=== PATIENT | female | born 2000 | race Caucasian/White ===

== ENCOUNTER 2025-06-29 11:09 | Inpatient (IN) | payer MEDICARE, SELFPAY ==
[2025-06-29] VITALS (8 sets, daily range): BP systolic 103–130; BP diastolic 58–91; PULSE 86–104; RESP 16–24; TEMP 36.7–37.3; O2SAT 95–100; BMI 46.8
--- NOTE | 2025-06-29 12:07 | PD.EDSEIZ ---
ED Seizures RME/HPI General Chief Complaint: Seizure Stated Complaint: seizure Time Seen by Provider: 06/29/25 11:20 Arrival date/time: 06/29/25 11:11 Limitations: no limitations RME / HPI RME / HPI Narrative: 25 year old female with history of seizures, schizophrenia, pulmonary embolism on Eliquis presents to the ED BIBA from home for evaluation of possible seizure. In the ED, patient states she had a seizure 3 days ago with + head injury in the shower. She additionally reports just being discharged from a mental health facility several days ago and is feeling suicidal today. No plan in place and denies taking any action or overdosing on medications. Patient states she is compliant with her seizure medications which include Keppra 1,500mg BID and Vimpat 150mg BID. States her neurologist is Dr. Harrell in [place] and last saw ~ 1 month ago. Related Data Home Medications ?Medication ?Instructions ?Recorded ?Confirmed apixaban 5 mg tablet (Eliquis) 5 mg PO Q12H 06/29/25 06/29/25 aripiprazole 10 mg tablet 10 mg PO DAILY 06/29/25 06/29/25 levetiracetam 750 mg tablet 750 mg PO Q12H 06/29/25 06/29/25 levothyroxine 25 mcg tablet 25 mcg PO DAILY 06/29/25 06/29/25 rimegepant 75 mg disintegrating 75 mg PO DAILY 06/29/25 06/29/25 tablet (Nurtec ODT) Allergies Allergy/AdvReac Type Severity Reaction Status Date / Time lithium Allergy Verified 06/29/25 12:13 Review of Systems Review of Systems Systems Reviewed: All systems reviewed, normal except as documented Past Medical History Past Medical History NEUROLOGIC: Positive Seizures and Epilepsy ENDOCRINE: Positive Hypothyroidism PSYCHO/SOCIAL: Positive Psychiatric Problems and Schizophrenia Surgical History SURGICAL: Negative Ear Surgery, Nephrectomy, Joint Replacement, Neurologic Surgery or Lumpectomy Social History SMOKING STATUS: Current some day smoker ED Exam General Limitations: Present no limitations General appearance: Present alert and in no apparent distress Head Head exam: Present normocephalic and other (There is an old appearing abrasion to the left forehead) Eye Eye exam: Present normal appearance, PERRL and EOMI ENT ENT exam: Present normal exam, normal oropharynx and mucous membranes moist Neck Neck exam: Present normal inspection, full ROM and trachea midline Chest Chest inspection: Present normal inspection and symmetric chest wall rise Respiratory Respiratory exam: Present normal lung sounds bilaterally Cardiovascular Cardiovascular exam: Present regular rate, normal rhythm and normal heart sounds Abdominal Exam Abdominal exam: Present soft and normal bowel sounds Extremities Exam Extremities exam: Present normal inspection and full ROM Back Exam Back exam: Present normal inspection and full ROM Neurological Exam Neurological exam: Present alert, oriented X3 and CN II-XII intact Psychiatric Psychiatric exam: Present normal affect and normal mood Skin Skin exam: Present warm, dry, intact and normal color Course Quality Measures none Orders Category Date Time Status 1799 Psychiatric Hold NOW Care 06/29/25 12:45 Ordered One-to-one observation NOW Care 06/29/25 12:00 Active Diet Regular Diet 06/30/[address] cervical spine wo con Stat Exams 06/29/25 15:[address] head/brain wo con Stat Exams 06/29/25 15:55 Completed Acetaminophen Stat Lab 06/29/25 13:10 Completed Alcohol, Blood Medical Stat Lab 06/29/25 13:10 Completed CBC Stat Lab 06/29/25 13:10 Completed CMP [Comprehensive Metabolic Panel] Stat Lab 06/29/25 13:10 Completed Drug Screen,Urine Stat Lab 06/29/25 13:15 Completed Salicylate Stat Lab 06/29/25 13:10 Completed ACETAMINOPHEN w/COD 300-30 [Tylenol w/Cod #3] Med 07/01/25 18:01 Discontinued 2 tab PO X1 ONE ARIPiprazole [Abilify] Med 07/01/25 09:00 Discontinued 10 mg PO DAILY Acetaminophen Tab [Tylenol ES Tab] Med 07/01/25 10:51 Discontinued 1,000 mg PO X1 ONE Apixaban [Eliquis] Med 07/01/25 09:00 Hold 5 mg PO BID Ibuprofen Tab [Motrin Tab] Med 07/01/25 18:01 Discontinued 800 mg PO X1 ONE LORazepam [Ativan] Med 06/30/25 14:53 Discontinued 1 mg PO X1 ONE LORazepam [Ativan] Med 06/30/25 17:50 Discontinued 1 mg PO X1 ONE LORazepam [Ativan] Med 06/29/25 13:25 Discontinued 2 mg PO X1 ONE LORazepam [Ativan] Med 06/29/25 13:25 Discontinued 2 mg PO X1 ONE Lacosamide [Vimpat] Med 07/01/25 09:00 Active 100 mg PO BID Levothyroxine Sodium [Synthroid] Med 07/01/25 09:00 Discontinued 25 mcg PO ACBR Midazolam Inj [Versed Inj] Med 07/02/25 08:10 Discontinued 2 mg .ROUTE .STK-MED ONE Midazolam Inj [Versed Inj] Med 07/02/25 09:00 Discontinued 2 mg .ROUTE .STK-MED ONE Midazolam Inj [Versed Inj] Med 06/30/25 10:54 Discontinued 2 mg IVP X1 ONE Midazolam Inj [Versed Inj] Med 06/30/25 10:54 Discontinued 2 mg IVP X1 ONE OLANZapine [ZyPREXA] Med 06/30/25 14:53 Discontinued 2.5 mg PO X1 ONE OLANZapine [ZyPREXA] Med 06/30/25 17:50 Discontinued 5 mg PO X1 ONE Ondansetron Inj [Zofran Inj] Med 07/01/25 06:08 Discontinued 4 mg IVP X1 ONE Ondansetron Inj [Zofran Inj] Med 07/01/25 10:51 Discontinued 4 mg IVP X1 ONE Ondansetron Odt [Zofran Odt] Med 07/01/25 18:01 Discontinued 4 mg PO X1 ONE Promethazine Inj [Phenergan Inj] Med 07/01/25 15:52 Discontinued 25 mg IM X1 ONE levETIRAcetam INJ [Keppra Inj] Med 07/01/25 06:08 Discontinued 1,000 mg IV X1 ONE levETIRAcetam INJ [Keppra Inj] Med 06/30/25 00:10 Discontinued 1,000 mg IVP X1 ONE levETIRAcetam INJ [Keppra Inj] Med 06/30/25 06:05 Discontinued 1,000 mg IVP X1 ONE levETIRAcetam INJ [Keppra Inj] Med 06/30/25 17:50 Discontinued 1,000 mg IVP X1 ONE levETIRAcetam INJ [Keppra Inj] Med 07/02/25 08:30 Discontinued 1,000 mg IVP X1 ONE Vital Signs Vital signs: Vital Signs Temperature 98.3 F 06/29/25 11:34 Pulse Rate 86 06/29/25 11:34 Respiratory Rate 18 06/29/25 11:34 Pulse Oximetry (%) 96 06/29/25 11:34 Oxygen Delivery Method Room Air 06/29/25 11:34 Pulse ox is 96% on room air which is adequate. Seizure MDM Narrative MDM Narrative:: IErika, am scribing for and in the presence of Dr. Henning. 1655: Patient is medically cleared for mental health evaluation. PMHX Past medical history for seizure, alcohol abuse, and depression Patient with history as above presented with seizure a few days ago. The patient states that she drinks daily and believes that is why she fell when she had a seizure. The patient states she has not had alcohol withdrawal seizures in the past. She is compliant with her medications. History obtained from the patient. Patient was nontoxic, stable. Ambulatory. Exam as above. Patient with vitals with a heart rate of 103 on arrival. No fever. DATA reviewed Labs reviewed. Head CT and cervical C-spine interpreted by me. Independently reviewed imaging. Reviewed EMS/external/NH records. Differential diagnosis considered. This includes alcohol withdrawal seizure, dehydration, electrolyte abnormality, noncompliant with meds, suicide ideation, depression. Exacerbation of any other psychiatric disorder. Overall presentation is consistent with dehydration and SI.. Low suspicion for acute subarachnoid hemorrhage. Patient was treated with oral IV fluids, p.o. Ativan x 1 with improvement in symptoms. Labs are reviewed. Patient has a white count of 12, hemoglobin 10 which is slightly decreased, platelets of 434 which is normal. No elevated white count. Electrolytes are reviewed and interpreted by me. No significant derangements of her electrolyte. BUN and creatinine are normal. LFTs are normal. Talk screen to include marijuana alcohol are negative. Will add on Tylenol and aspirin level. Complications/Risks: Suicide, patient on a one-to-one. Systemic symptoms affecting acuity: Mild tachycardia. Social history affecting care: Patient drinks alcohol, lives with her boyfriend. Has depression. . Disposition: Patient is medically cleared. 1800: Patient signed out pending mental health evaluation and final disposition. Patient data External records reviewed:: [facility] previous records and EMS form Clinical information provided by:: patient and EMS Social determinants that could affect healthcare access:: alcohol use Patient has the following chronic illnesses:: seizures, schizophrenia, pulmonary embolism on Eliquis How is presenting disease/condition affected by chronic disease/condition?: exacerbated by Evaluation data The following diagnostics were reviewed and interpreted by me:: lab results and radiology exam(s) Lab and/or radiology exams considered but not ordered:: None Interpretation Summary: Ordering Physician: Merced Henning MD Date of Service: 06/29/25 Procedure(s): CT cervical spine wo con Accession Number(s): [id number] cc: SAM LIM; Hitesh Chou MD; Merced Henning MD~ EXAMINATION: CT cervical spine without intravenous contrast 20 sagittal coronal reconstructions 3D reconstructions Date and time: June 29, 2025, 1442 hours INDICATIONS: Seizures today, ground-level fall with injury to the neck, neck pain CTDI: 19.7 DLP: 409 TECHNIQUE AND FINDINGS: Multiple 3.0 mm slice thickness axial images through the cervical spine 2D sagittal coronal reconstructions 3D reconstructions Low-dose protocols, adjustment of MA KV according to patient size Reversal normal cervical lordosis. No cervical fracture. Intact odontoid Satisfactory alignment posterior spinous processes IMPRESSION: No acute cervical fracture Dictated By: Hitesh Chou MD Signed By: <Electronically signed by Hitesh Chou MD in OV> 06/29/25 1647 Ordering Physician: Merced Henning MD Date of Service: 06/29/25 Procedure(s): CT head/brain wo con Accession Number(s): [id number] cc: SAM LIM; Hitesh Chou MD; Merced Henning MD~ EXAMINATION: CT brain head without intravenous contrast 2D sagittal and coronal reconstructions. 3D reconstructions Date and time: June 29, 2025, 1622 hours INDICATIONS: Seizures today, patient fell with injury to the head, head pain TECHNIQUE AND FINDINGS: Multiple 5.0 mm slice Tekcis axial images of the brain 2D sagittal coronal reconstructions 3D reconstructions Ventricles are normal in size and configuration. No mass effect upon the ventricular system. No acute hemorrhage either intra or extra-axial Cranial vault appears intact IMPRESSION: Negative for acute hemorrhage, mass effect or midline shift Consider elective brain MRI follow-up, pre and post contrast, seizure protocol Dictated By: Hitesh Chou MD Signed By: <Electronically signed by Hitesh Chou MD in OV> 06/29/25 2228 Medications / Prescriptions Medications or Prescriptions considered but not ordered:: None Medication administrations:: Medication Administration History Acetaminophen (Acetaminophen 325 Mg Tablet) 650 mg PO Q6H PRN PRN Reason: Fever >101.5 Stop: 08/01/25 09:33 Last Admin: 07/02/25 09:54 Dose: 650 mg Documented By: BY Apixaban (Apixaban 2.5 Mg Tablet) 5 mg PO BID [facility] On Hold: 07/03/25 00:52 Stop: 07/22/25 08:59 Last Admin: 07/02/25 21:24 Dose: Not Given Documented By: WB Non-Admin Reason: hold dose per Dr. Prieto Admin: 07/02/25 08:43 Dose: 5 mg Documented By: Admin: 07/01/25 21:28 Dose: 5 mg Documented By: Admin: 07/01/25 08:40 Dose: 5 mg Documented By: HAYDEE Atorvastatin Calcium (Atorvastatin Calcium 20 Mg Tablet) 80 mg PO HS [facility] Stop: 08/01/25 20:59 Last Admin: 07/02/25 21:23 Dose: 80 mg Documented By: WB Folic Acid (Folic Acid 1 Mg Tablet) 1 mg PO BID [facility] Stop: 07/07/25 20:59 Last Admin: 07/03/25 09:05 Dose: 1 mg Documented By: Admin: 07/02/25 21:20 Dose: 1 mg Documented By: WB Sodium Chloride (Ns) 1,000 mls @ 75 mls/hr IV .[id number] [facility] Stop: 08/02/25 01:33 Last Admin: 07/03/25 01:53 Dose: 75 mls/hr Documented By: WB Lacosamide (Lacosamide 50 Mg Tablet) 100 mg PO BID [facility] Stop: 07/31/25 08:59 Last Admin: 07/03/25 09:05 Dose: 100 mg Documented By: Admin: 07/02/25 21:23 Dose: 100 mg Documented By: Admin: 07/02/25 08:43 Dose: 100 mg Documented By: Admin: 07/01/25 21:28 Dose: 100 mg Documented By: Admin: 07/01/25 08:40 Dose: 100 mg Documented By: HAYDEE Levetiracetam (Levetiracetam Inj 100 Mg/Ml Vial 5ml) 1,500 mg IVP Q12HR COLL[facility] Stop: 08/01/25 20:59 Last Admin: 07/03/25 09:27 Dose: 1,500 mg Documented By: Admin: 07/02/25 21:23 Dose: 1,500 mg Documented By: JOSE Levothyroxine Sodium (Levothyroxine Sodium 25 Mcg Tablet) 25 mcg PO ACBR COLLIN Stop: 08/03/25 05:59 Lorazepam (Lorazepam 0.5 Mg Tablet) 1 mg PO Q4HR PRN PRN Reason: CIWA SCORE 7-11 Stop: 07/07/25 09:36 Last Admin: 07/02/25 09:54 Dose: 1 mg Documented By: BY Lorazepam (Lorazepam 0.5 Mg Tablet) 0.5 mg PO Q4HR PRN PRN Reason: CIWA Score 2-6 Stop: 07/07/25 09:36 Last Admin: 07/02/25 16:28 Dose: 0.5 mg Documented By: WILLIE Lorazepam (Lorazepam 0.5 Mg Tablet) 2 mg PO Q4HR PRN PRN Reason: CIWA SCORE 12-15 Stop: 07/07/25 09:36 Ondansetron HCl (Ondansetron Inj 2 Mg/Ml Inj 2 Ml) 4 mg IVP Q6H PRN; Protocol PRN Reason: NAUSEA OR VOMITING Stop: 08/01/25 09:33 Last Admin: 07/02/25 10:07 Dose: 4 mg Documented By: BY Thiamine HCl (Thiamine 100 Mg Tablet) 100 mg PO BID COLLIN Stop: 07/07/25 20:59 Last Admin: 07/03/25 09:05 Dose: 100 mg Documented By: Admin: 07/02/25 21:23 Dose: 100 mg Documented By: JOSE Discontinued Medications Acetaminophen (Acetaminophen 500 Mg Tablet) 1,000 mg PO X1 ONE Stop: 07/01/25 10:52 Last Admin: 07/01/25 10:56 Dose: 1,000 mg Documented By: HAYDEE Acetaminophen/Codeine Phosphate (Acetaminophen W/Cod 300-30 Tablet) 2 tab PO X1 ONE Stop: 07/01/25 18:02 Last Admin: 07/01/25 18:09 Dose: 2 tab Documented By: VL Aripiprazole (Aripiprazole 5 Mg Tablet) 10 mg PO DAILY COLLIN Stop: 07/31/25 08:59 Last Admin: 07/02/25 09:14 Dose: Not Given Documented By: BY Non-Admin Reason: Patient Refused Admin: 07/01/25 08:40 Dose: Not Given Documented By: VL Non-Admin Reason: Patient Refused Ibuprofen (Ibuprofen Tab 400 Mg Tablet) 800 mg PO X1 ONE Stop: 07/01/25 18:02 Last Admin: 07/01/25 18:10 Dose: Not Given Documented By: VL Non-Admin Reason: Patient Refused Levetiracetam (Levetiracetam Inj 100 Mg/Ml Vial 5ml) 1,000 mg IVP X1 ONE Stop: 06/30/25 00:11 Last Admin: 06/30/25 01:20 Dose: 1,000 mg Documented By: TAI Levetiracetam (Levetiracetam Inj 100 Mg/Ml Vial 5ml) 1,000 mg IVP X1 ONE Stop: 06/30/25 06:06 Last Admin: 06/30/25 06:17 Dose: 1,000 mg Documented By: Levetiracetam (Levetiracetam Inj 100 Mg/Ml Vial 5ml) 1,000 mg IVP X1 ONE Stop: 06/30/25 17:51 Last Admin: 06/30/25 19:12 Dose: 1,000 mg Documented By: LENNIE Levetiracetam (Levetiracetam Inj 100 Mg/Ml Vial 5ml) 1,000 mg IV X1 ONE Stop: 07/01/25 06:09 Last Admin: 07/01/25 06:34 Dose: 1,000 mg Documented By: MELVIN Levetiracetam (Levetiracetam Inj 100 Mg/Ml Vial 5ml) 1,000 mg IVP X1 ONE Stop: 07/02/25 08:31 Last Admin: 07/02/25 08:43 Dose: 1,000 mg Documented By: BY Levothyroxine Sodium (Levothyroxine Sodium 25 Mcg Tablet) 25 mcg PO ACBR COLLIN Stop: 07/31/25 08:59 Last Admin: 07/02/25 06:40 Dose: 25 mcg Documented By: Admin: 07/02/25 06:38 Dose: 25 mcg Documented By: Admin: 07/01/25 08:40 Dose: 25 mcg Documented By: HAYDEE Levothyroxine Sodium (Levothyroxine Sodium 25 Mcg Tablet) 25 mcg PO X1 ONE Stop: 07/03/25 06:17 Last Admin: 07/03/25 06:21 Dose: 25 mcg Documented By: JOSE Lorazepam (Lorazepam 0.5 Mg Tablet) 2 mg PO X1 ONE Stop: 06/29/25 13:26 Last Admin: 06/29/25 13:47 Dose: 2 mg Documented By: AA Lorazepam (Lorazepam 0.5 Mg Tablet) 2 mg PO X1 ONE Stop: 06/29/25 13:26 Last Admin: 06/29/25 13:38 Dose: Not Given Documented By: MADDISON Non-Admin Reason: Duplicate Medication on eMAR Lorazepam (Lorazepam 0.5 Mg Tablet) 1 mg PO X1 ONE Stop: 06/30/25 14:54 Last Admin: 06/30/25 15:30 Dose: Not Given Documented By: DO Non-Admin Reason: Patient Refused Lorazepam (Lorazepam 0.5 Mg Tablet) 1 mg PO X1 ONE Stop: 06/30/25 17:51 Last Admin: 06/30/25 18:12 Dose: 1 mg Documented By: LENNIE Lorazepam (Lorazepam 2 Mg/Ml Vial) 1 mg IVP X1 ONE Stop: 07/03/25 10:08 Midazolam HCl (Midazolam Inj 1 Mg/Ml Vial 2 Ml) 2 mg IVP X1 ONE Stop: 06/30/25 10:55 Last Admin: 06/30/25 10:57 Dose: 2 mg Documented By: LENNIE Midazolam HCl (Midazolam Inj 1 Mg/Ml Vial 2 Ml) 2 mg IVP X1 ONE Stop: 06/30/25 10:55 Last Admin: 06/30/25 11:07 Dose: Not Given Documented By: VG Non-Admin Reason: Duplicate Medication on eMAR Midazolam HCl (Midazolam Inj 1 Mg/Ml Vial 2 Ml) Confirm Administered Dose 2 mg .ROUTE .STK-MED ONE Stop: 07/02/25 08:11 Last Admin: 07/02/25 08:43 Dose: 2 mg Documented By: BY Midazolam HCl (Midazolam Inj 1 Mg/Ml Vial 2 Ml) Confirm Administered Dose 2 mg .ROUTE .STK-MED ONE Stop: 07/02/25 09:01 Last Admin: 07/02/25 09:11 Dose: 2 mg Documented By: BY Olanzapine (Olanzapine 2.5 Mg Tablet) 2.5 mg PO X1 ONE Stop: 06/30/25 14:54 Last Admin: 06/30/25 15:30 Dose: Not Given Documented By: DO Non-Admin Reason: Patient Refused Olanzapine (Olanzapine 5 Mg Tablet) 5 mg PO X1 ONE Stop: 06/30/25 17:51 Last Admin: 06/30/25 18:36 Dose: 5 mg Documented By: LENNIE Ondansetron HCl (Ondansetron Inj 2 Mg/Ml Inj 2 Ml) 4 mg IVP X1 ONE; Protocol Stop: 07/01/25 06:09 Last Admin: 07/01/25 06:34 Dose: 4 mg Documented By: MELVIN Ondansetron HCl (Ondansetron Inj 2 Mg/Ml Inj 2 Ml) 4 mg IVP X1 ONE; Protocol Stop: 07/01/25 10:52 Last Admin: 07/01/25 10:57 Dose: 4 mg Documented By: HAYDEE Ondansetron HCl (Ondansetron Odt 4 Mg Tabrap) 4 mg PO X1 ONE; Protocol Stop: 07/01/25 18:02 Last Admin: 07/01/25 18:09 Dose: 4 mg Documented By: HAYDEE Promethazine HCl (Promethazine Inj 25 Mg/Ml Vial) 25 mg IM X1 ONE; Protocol Stop: 07/01/25 15:53 Last Admin: 07/01/25 16:26 Dose: 25 mg Documented By: BD See above Consultations Consultation(s) initiated? (list below): No Diagnosis Seizure Differential Diagnosis: intractable seizure disorder, generalized seizure, epileptic seizure and other (SI, ICH ) Most likely diagnosis given after review of the tests above:: Seizure Suicidal ideation Admission Indicated Admission indicated?: not indicated Explain why admission is indicated or not indicated:: Signed out to Dr. Gomez pending Admission Request Was there a request for admission?: No Disposition Plan Disposition Plan: other (specify) (Signed out to Dr. Gomez) Discharge Plan Plan Patient Disposition: Admit Acute Care w/in Hospital Patient condition on transfer: Stable Problem List Clinical Impression: Recurrent seizures Patient/Caregiver Discharge Instructions Discharge Activity: activity as tolerated
--- NOTE | 2025-06-29 12:15 | PC.NURSE ---
SEIZURES, KNOWN HX, TOLD FRIEND YESTERDAY THAT SHE FELL HIT HER HEAD AND HAS BEEN HAVING MORE SEIZURES. ALSO TOLD ROOMMATE THAT SHE IS HEARING VOICES TO KILL HERSELF
[2025-06-29 13:14] LABS: Basophils # (Auto) 0.1 Thou/mm3 (0.0-0.2); Basophils % (Auto) 1 % (0-2.5); Eosinophils # (Auto) 0.1 Thou/mm3 (0.0-0.5); Eosinophils % (Auto) 1 % (0-10); Hematocrit 31.9 % (36.0-46.0); Hemoglobin 10.0 g/dL (12.0-16.0); Immature Granulocytes Auto 0.04 Thou/mm3 (0.00-0.00); Lymphocytes # (Auto) 2.5 Thou/mm3 (1.0-4.8); Lymphocytes % (Auto) 20 % (10-50); Mean Corpuscular HGB Conc 31.3 g/dl (31.0-37.0); Mean Corpuscular Hemoglobin 23.4 pg (25.0-35.0); Mean Corpuscular Volume 75 fL (80-100); Monocytes # (Auto) 0.8 Thou/mm3 (0.0-0.8); Monocytes % (Auto) 6 % (0-12); Neutrophils # (Auto) 9.3 Thou/mm3 (1.8-7.7); Neutrophils % (Auto) 72 % (37-80); Nucleated Red Blood Cell # 0.00 Thou/mm3 (0.00-0.00); Nucleated Red Blood Cell % 0 /100 WBC (0); Platelet Count 434 Thou/mm3 (140-440); RDW Standard Deviation 49.4 fL (36.4-46.3); Red Blood Count 4.27 Miln/mm3 (4.00-5.20); White Blood Count 12.9 Thou/mm3 (3.6-11.0)
[2025-06-29 13:34] LABS: Alanine Aminotransferase 11 U/L (10-49); Albumin, Serum 4.3 gm/dL (3.5-5.0); Albumin/Globulin Ratio 2.2 (1.2-2.2); Alcohol, Blood Medical < 3.0 mg/dL (0-10.0); Alkaline Phosphatase 98 U/L (46-116); Anion Gap 11 (7-16); Aspartate Amino Transferase 13 U/L (0-34); BUN/Creatinine Ratio 11 Ratio (12-20); Bilirubin,Total 0.4 mg/dL (0.3-1.2); Blood Urea Nitrogen 8 mg/dL (9-23); Calcium 9.2 mg/dL (8.3-10.6); Calcium (Corrected) 9.2 mg/dL (8.5-10.1); Carbon Dioxide 23.0 mMol/L (20.0-31.0); Chloride 108 mMol/L (98-107); Creatinine (Component) 0.7 mg/dL (0.6-1.3); Estimated Creatinine Clearance 137.4 mL/min (>60); Globulin 2.0 gm/dL (2.3-3.5); Glucose 90 mg/dL (74-106); Osmolality,Calculated 281 (275-295); Potassium 3.7 mMol/L (3.4-5.1); Sodium 142 mMol/L (136-145); Total Protein 6.3 gm/dL (5.7-8.2); eGFR > 60 See Note
[2025-06-29 14:16] LABS: Amphetamine/Methamp Scrn,U Negative (Negative); Barbiturate Screen,Urine Negative (Negative); Benzodiazepines Screen,Urine Negative (Negative); Benzoylecgonine Screen, Ur Negative (Negative); Fentanyl Screen,Urine Negative (Negative); Opiate Screen,Urine Negative (Negative); THC Screen,Urine Negative (Negative)
--- NOTE | 2025-06-29 15:55 | XR_ITS ---
EXAMINATION: CT brain head without intravenous contrast 2D sagittal and coronal reconstructions. 3D reconstructions Date and time: June 29, 2025, 1622 hours INDICATIONS: Seizures today, patient fell with injury to the head, head pain TECHNIQUE AND FINDINGS: Multiple 5.0 mm slice Tekcis axial images of the brain 2D sagittal coronal reconstructions 3D reconstructions Ventricles are normal in size and configuration. No mass effect upon the ventricular system. No acute hemorrhage either intra or extra-axial Cranial vault appears intact IMPRESSION: Negative for acute hemorrhage, mass effect or midline shift Consider elective brain MRI follow-up, pre and post contrast, seizure protocol
--- NOTE | 2025-06-29 15:55 | XR_ITS ---
EXAMINATION: CT cervical spine without intravenous contrast 20 sagittal coronal reconstructions 3D reconstructions Date and time: June 29, 2025, 1442 hours INDICATIONS: Seizures today, ground-level fall with injury to the neck, neck pain CTDI: 19.7 DLP: 409 TECHNIQUE AND FINDINGS: Multiple 3.0 mm slice thickness axial images through the cervical spine 2D sagittal coronal reconstructions 3D reconstructions Low-dose protocols, adjustment of MA KV according to patient size Reversal normal cervical lordosis. No cervical fracture. Intact odontoid Satisfactory alignment posterior spinous processes IMPRESSION: No acute cervical fracture
--- NOTE | 2025-06-29 16:01 | PC.NURSE ---
patient was released from a hold in [place] yesterday, patient states she does not have a follow up from that visit, patient states she continues to hear voices , voices are telling her to hurt herself
[2025-06-29 17:54] LABS: Acetaminophen < 2.0 mcg/mL (10.0-20.0); Salicylate < 3.0 mg/dL
--- NOTE | 2025-06-29 18:50 | EDNOTE_ITS ---
Emergency Room Addendum <Ronit Mendoza - Last Filed: 06/29/25 18:51> Addendum Narrative: 1800: Care assumed from Dr. Henning, the previous shift emergency physician. Past medical, surgical, social and family history reviewed. Vitals and home medications reviewed. Results and treatment plan discussed. I will assume the care of the patient at this time and will follow the patient. Please refer to the emergency department record for history and examination. <Huseyin Gomez DO - Last Filed: 06/30/25 00:12> Addendum Narrative: 1800: Care assumed from Dr. Henning, the previous shift emergency physician. Past medical, surgical, social and family history reviewed. Vitals and home medications reviewed. Results and treatment plan discussed. I will assume the care of the patient at this time and will follow the patient. Please refer to the emergency department record for history and examination. Patient remained stable throughout the night. Patient was placed on a 1799 hold by previous ER physician. I interpreted all labs including Tylenol and aspirin levels which were negative. Patient had no seizure activity here in the emergency room and the patient normally takes Keppra 1500 mg twice a day and Vimpat 500 mg twice a day. I will give the patient Keppra 1000 mg IV since she has not taken her Keppra today. Patient is medically stable for social insurance analyst evaluation. Case will be signed out to Dr. Higginbotham awaiting definitive disposition.
[2025-06-30] VITALS (9 sets, daily range): BP systolic 111–152; BP diastolic 49–102; PULSE 74–101; RESP 17–21; TEMP 36.6–37; O2SAT 95–98
[2025-06-30] MEDS: levETIRAcetam INJ 100 MG/ML VIAL 5ML 1000 MG IVP ×3 (01:20→19:12)
--- NOTE | 2025-06-30 06:05 | PC.NURSE ---
PT APPEARED TO HAVE SEIZURE AT THIS TIME, DR GILBERT ADVISED AND ASSESSED PT.
--- NOTE | 2025-06-30 07:15 | PC.NURSE ---
In to assess pt. Pt resting quietly at this time without any complaints. V/s assessed and stable. 1-1 sitter at bedside. Plan of care ongoing.
--- NOTE | 2025-06-30 07:30 | PC.NURSE ---
pt appeared to have seizure like activity lasting about 30 seconds. pt turned onto side by [employer], provider notified.
--- NOTE | 2025-06-30 08:46 | PC.NURSE ---
Friend at bedside to visit pt.
--- NOTE | 2025-06-30 09:00 | PC.NURSE ---
SS worker at bedside.
--- NOTE | 2025-06-30 09:14 | PC.CC ---
Addendum entered by Emily Cesar 06/30/25 15:00: 1500-CONTINUED----ASW made it clear to pt and Denominational that a re-eval is not guaranteed, but copywriter will review the chart and request in the AM. Pt understands. Addendum entered by Emily Cesar 06/30/25 14:45: It should be known that the pt is conserved by the mother Carmela Mcdowell [phone]. ASW spoke with Carmela and she is very upset that pt is in [place] and stated she was not aware that pt was in this state. Carmela stated she knew that her boyfriend Denominational wanted to fly her out to [place] but according to Carmela she stated she did not agree to that. Carmela stated she thought it was clear that [employer]ational was not going to fly her out to [place], yet now the pt is here. According to Carmela, she stated she is in favor of placing the pt in a LPS facility. Carmela stated the pt has been in and out of rehab since the age of 18. Carmela reported that the pt was recently kicked out of Carmela's home and place in a homeless fci. White at the homeless fci in [place], pt signed an agreement that she would maintain her home there and not leave in the State of [place]. If the agreement is broken she forfeits her stay at the homeless fci and forfeits the case management plan that was going to get her housing. According to Carmela, the pt was #3 on the housing list and now that the pt left the State, she is back at the bottom of the list. Carmela stated, I know this is going to sound mean, but Shi needs to learn her lesson and if she ends up homeless in [place], then so be it. Carmela went on to say that she does not want the pt back in her home and supports LPS placement in [place]. Carmela stated that she will be wiling to speak to any LPS facility if they have questions about the conservatorship, as she understands that it may be a barrier for placement. Pt reports she receives $292 in food stamps, disability in the amount of $300 (all in the State of [place]) and the mother is her conservator and the mother is her payee. WARDROBE ASSISTANT Cash Specialist Radha Reza spoke with pts boyfriend Denominational and he stated that if the pt is reassessed by SS, his plan is to purchase a flight back to [place] for the pt and she would need to go back to the homeless fci where she came. ASW explained to Denominational that since pt is requesting a reassessment, ASW can revisit the pt tomorrow and provide a re-eval. Denominational is aware of a possible re-eval for the pt. Addendum entered by Emily Cesar 06/30/25 14:19: 1413-ASW explained to pt that there are current barriers to LPS placement due to her conservatorship being out of state. ASW informed pt that the following LPS facilities have declined: [facility], [facility], [facility] and [facility], [facility] has no beds available. Pt was visabily upset and stated she wants to leave. ASW explained that since she is on a 5150 Hold for DTS, she cannot leave and if she does, LE would need to called. Pt was upset and said she wants to be reassessed for a safety plan. ASW informed pt that a reassessment can be conducted, but not until tomorrow. Pt was upset and stated she does not know why she needs to stay if she is no longer experiencing SI w/ plan. Pt could not explain what has changed since this morning when she said she was experiencing SI w/ plan. Pt was quiet and upset. Pt is asking for her boyfriend [employer]. Original Note: 0845-Pt is a 25 yo female, BIB her boyfriend due to hearing commanding voices telling her to kill herself and how to do it. Pt states she is diagnosed with schizophrenia, denies illicit controlled substance use and admits to daily alcohol use. Pt stated SI is active and will kill herself by OD. Pt stated she moved her on Friday from [place] to live with her friend. Pt stated that one week ago, while in [place], she was in the hospital for a few days due to attempting to end her life by OD. Pt reports she moved from [place] to [place], as she was homeless there and moved to be with her boyfriend in hopes she could get better insurance and have a better life here. Pt reported she is taking Keppra, Eliquist and Zenthroid. Pt stated that she has suffered from MH issues all her life and admits to dx of schizophrenia, JIM, MDD. ASW staffed this case with WASHCLOTH FOLDER, Director Connie Dumas and it was determined that the safest outcome would be to place the pt on a 5150 Hold DTS. ASW will search for LPS placement. ASW staffed this case with ER provider and he agrees to the plan. Assigned RN is aware of hold and LPS placement pending. Pt resides at [address] [place] [address] and she resides with Da Cabrera [phone].
--- NOTE | 2025-06-30 09:37 | PD.EDADDENDU ---
Emergency Room Addendum Addendum Narrative: 0600: Care assumed from Dr. Gomez, the previous shift emergency physician. Past medical, surgical, social and family history reviewed. Vitals and home medications reviewed. I will assume the care of the patient at this time, pending mental health evaluation and final disposition. Please refer to the emergency department record for history and examination from initial visit.?The following addendum documentation note is intended to reflect any pending information, findings, or radiology results not included in the patient?s initial chart. Patient has been evaluated by protective services social worker and placed on a 5150 hold, pending LPS facility placement. 0735: The patient had a brief seizure, during that time the patient was looking upward to the right, lasting only a few seconds. The patient was able to immediately orient to my voice and answer questions appropriately. The patient was just treated with 1g of Keppra IV just prior to the seizure and had received 1g of Keppra last night. The patient states her seizures are well controlled with her medication regimen which includes Keppra and Vimpat. However, we do not have Vimpat available. States at baseline her seizures are brief and nonconvulsive. It could be possible these are pseudoseizures and do not require further work-up. The seizures can be treated as an outpatient and the patient is medically cleared for LPS facility placement for suicidal ideation. 1050: Patient reports feeling anxious, trying to get out of bed, ordered 2mg Versed. 1455: Ordered 1mg PO Ativan and 2.5mg PO Zyprexa. 1530: Patient refused the oral medications. She is not wanting to cooperate or lay back in bed. Patient placed in 4-point restraints for her safety. 1630: Restraints were removed, patient is cooperative. 1800: Patient signed out to Dr. Gomez pending LPS facility placement.
[2025-06-30] MEDS: MIDAZOLAM INJ 1 MG/ML VIAL 2 ML 2 MG IVP (10:57)
--- NOTE | 2025-06-30 11:00 | PC.NURSE ---
PT ANXIOUS, BREATHING RAPIDLY, ATTEMPTING TO GET OUT OF BED, REMOVING MONITORING EQUIPMENT, STATING I NEED TO GET OUT OF HERE . PROVIDER NOTIFIED. ORDERS RECEIVED AND INITIATED.
--- NOTE | 2025-06-30 15:25 | PC.NURSE ---
ADVISED PT THAT SHE WAS HAVING SEIZURES TODAY AND FOR HER SAFELY SHE NEEDS TO SIT BACK IN BED. PT REFUSED STATING SHE DOES NOT WANT TO SIT BACK IN BED. PT STATES I DON'T CARE, I WANT TO . PT STOOD UP AND STARTED YELLING. PT THEN ATTEMPTED TO TAKE OUT IV. PT PLACED BACK IN BED AND FOUR POINT RESTRAINTS INITIATED PER DOCTORS ORDERS.
--- NOTE | 2025-06-30 16:15 | PC.NURSE ---
attempted to give order for IV Keppra, IV infiltrated. IV removed.
--- NOTE | 2025-06-30 16:30 | PC.NURSE ---
restraints removed, pt tolerating well.
--- NOTE | 2025-06-30 17:30 | PC.NURSE ---
dinner tray provided.
--- NOTE | 2025-06-30 18:19 | PD.EDADDENDU ---
Emergency Room Addendum <Ronit Mnedoza - Last Filed: 06/30/25 18:20> Addendum Narrative: 1800: Care assumed from Dr. Higginbotham, the previous shift emergency physician. Past medical, surgical, social and family history reviewed. Vitals and home medications reviewed. Results and treatment plan discussed. I will assume the care of the patient at this time and will follow the patient, pending 5150 placement. Please refer to the emergency department record for history and examination from initial visit. <Huseyin Gomez DO - Last Filed: 07/01/25 04:28> Addendum Narrative: 1800: Care assumed from Dr. Higginbotham, the previous shift emergency physician. Past medical, surgical, social and family history reviewed. Vitals and home medications reviewed. Results and treatment plan discussed. I will assume the care of the patient at this time and will follow the patient, pending 5150 placement. Please refer to the emergency department record for history and examination from initial visit. Patient resting comfortably throughout my entire shift. There were no issues. Vital signs are stable. Patient is still waiting psychiatric placement.
[2025-07-01] VITALS (13 sets, daily range): BP systolic 92–154; BP diastolic 46–97; PULSE 69–99; RESP 17–25; TEMP 36.7–37.3; O2SAT 93–100
[2025-07-01] MEDS: ONDANSETRON INJ 2 MG/ML INJ 2 ML 4 MG IVP ×2 (06:34→10:57)
[2025-07-01] MEDS: levETIRAcetam INJ 100 MG/ML VIAL 5ML 1000 MG IV (06:34)
--- NOTE | 2025-07-01 07:48 | PC.NURSE ---
PATIENT HAD MULTIPLE ABSENT SEIZURES LAST NIGHT PER SOIL TESTER STAFF. PATIENT'S O2 SATURATIONS WOULD DROP WHEN PATIENT WOULD SEIZE. PATIENT'S SEIZURES LASTED ABOUT LESS THAN [address] CASH AWARE THAT PATIENT STATED SHE IS SUPPOSED TO BE TAKING ELIQUIS AND LEVOTHYROXINE DOSES, WELL KEPPRA 1500MG BID. PATIENT IS ALERT AND ORIENTED. DR. CASH MADE AWARE THAT PATIENT REPORTS DRINKING ALCOHOL EVERYDAY AND PATIENT'S LAST DRINK BEING FRIDAY NIGHT. PATIENT STATES SHE CAME IN BECAUSE PRIOR TO COMING IN SHE HAD 2 SEIZURES WITHIN 20 MINUTES AND SHE USUALLY DOES NOT GET THEM THAT OFTEN. PATIENT ON 5150 HOLD FOR SI. PATIENT PENDING PLACEMENT. VITALS ARE STABLE. 1:[address] NO FURTHER ORDERS BY MD. PLAN OF CARE ONGOING
--- NOTE | 2025-07-01 08:15 | PC.NURSE ---
PATIENT HAD SEIZURE THAT LASTED ABOUT [address] CASH MADE AWARE. PATIENT'S BLOOD SUGAR WAS 105. PATIENT VITALS ARE STABLE. PATIENT LETHARGIC. NO FURTHER ORDERS. PLAN OF CARE ONGOING.
--- NOTE | 2025-07-01 08:38 | PC.NURSE ---
PATIENT SITTING UP IN GURNEY EATING BREAKFAST. PATIENT ALERT AND ORIENTED. VITALS STABLE. PLAN OF CARE ONGOING
[2025-07-01] MEDS: LEVOTHYROXINE SODIUM 25 MCG TABLET PO (08:40)
[2025-07-01] MEDS: LACOSAMIDE 50 MG TABLET 100 MG PO ×2 (08:40→21:28)
[2025-07-01] MEDS: APIXABAN 2.5 MG TABLET 5 MG PO ×2 (08:40→21:28)
--- NOTE | 2025-07-01 09:26 | PC.SS ---
Addendum entered by Monica York 07/01/25 12:43: SS follow up note; SS was contacted by [facility] Director, she informed SS that they are not able to accept patient due to patient's insurance being out of state and patient being conserved. SS verbalized understanding. Addendum entered by Monica York 07/01/25 12:13: SS follow up note; SS faxed referral to [facility]. SS was forwarded to another number. SS left Voicemail with SS contact Number. Addendum entered by Monica York 07/01/25 11:43: SS follow up note; SS followed up with [facility]- Monica informed SS she would have her director review and would contact SS back. Original Note: SS followed up with the following [facility] facilities: [facility]- [facility]- No beds at the time [facility]- Declined due to patient being conserved [facility]-Declined due to patient being conserved [facility]-SS left Voicemail [facility]-SS left Voice mail [facility]-In [facility]-In Queue, no beds at the time [facility], [facility]-In [facility]-In [facility]-No female beds available [facility] [place] [facility]+-Declined due to patient being conserved [facility]-In [facility]-Declined due to conservatorship out of [facility]-Declined due to out of area and conservatorship [facility].-Declined due to seizures and patient being conserved [facility]-SS resent referral [facility]-Re-faxed referral [facility] ? Left Voicemail with contact number-SS left voicemail [facility]-No answer [facility] ? [facility]-Voice mail with SS contact number [facility]-Will contact SS back, reviewing
--- NOTE | 2025-07-01 09:51 | EDNOTE_ITS ---
Emergency Room Addendum Addendum Narrative: 0600: Care assumed from Dr. Gomez, the previous shift emergency physician. Past medical, surgical, social and family history reviewed. Vitals and home medications reviewed. I will assume the care of the patient at this time, pending LPS facility placement. Please refer to the emergency department record for history and examination from initial visit.?The following addendum documentation note is intended to reflect any pending information, findings, or radiology results not included in the patient?s initial chart. Through ED course, patient had one episode of a pseudoseizure otherwise has remained stable. Per social media marketing analyst, patient has yet to be accepted at any LPS facility. The plan is to continue attempts to place and reevaluate the patient tomorrow morning. At 1800h, patient was signed out to Dr. Laura pending LPS facility placement.
--- NOTE | 2025-07-01 10:11 | PC.NURSE ---
PATIENT STATING SHE HAS HEADACHE. DR. CASH MADE AWARE PATIENT WOULD LIKE SOME TYLENOL FOR HEADACHE. PER MD HE WILL PUT IN ORDER FOR PO TYLENOL
[2025-07-01] MEDS: ACETAMINOPHEN 500 MG TABLET 1000 MG PO (10:56)
--- NOTE | 2025-07-01 11:10 | PC.NURSE ---
PATIENT GIVEN ZOFRAN IV FOR NAUSEA. PATIENT STARTED TO DEVLOPE RASH TO LEFT HAND AND FOREARM. DR. CASH MADE AWARE. PER MD WILL MONITOR FOR THE NEXT 5-10 MINUTES; IF NOT RESOLVING, THEN WILL GIVE PATIENT BENADRYL
--- NOTE | 2025-07-01 13:34 | PC.CC ---
Addendum entered by Sandra Cheyenne 07/01/25 16:45: [facility] [phone] contacted radio script writer - do not accept out of state insurance. Addendum entered by Sandra Henryares 07/01/25 16:41: [facility] [phone] contacted, verified packet was received no further updates. Addendum entered by Sandramane Quinn 07/01/25 16:38: [employer] Machine Operator received telephone call from bedside sitter. [employer] Machine Operator engage Pt and boyfriend bedside. [employer] Machine Operator reviewed hold with Pt and boyfriend and informed Pt hold will 92407/02/25. [employer] Machine Operator reviewed current psychiatric medication Pt is taking. Pt denied taking psych medication. Pt is receptive towards MH and psychiatric connection. Original Note: [employer] Machine Operator received notice from sitter, Pt requesting to speak to SW. [employer] Machine Operator spoke to Pt bedside. Pt appeared alert and oriented. Pt requesting to have a revaluation, denying SI/HI and plan/intent. Pt noted frustration with remaining on 5150 hold stating, How am I receiving care here if I am just laying in bed in ED with no mental health support. Pt requesting to safety plan, stating she will like to go with boyfriend before he leaves to [place] (Friday07/03/2025 at 6:00am). Pt was told her hold will tomorrow 07/02/2025 0925 and a revaluation will take place then. Pt reported she understood and will wait for revaluation.
--- NOTE | 2025-07-01 14:08 | PC.NURSE ---
SSW CHAS IN ROOM SPEAKING WITH PT AND FRIEND AT BEDSIDE
--- NOTE | 2025-07-01 16:13 | PC.NURSE ---
called pharmacy for promethazine inj not in pixis
[2025-07-01] MEDS: PROMETHAZINE INJ 25 MG/ML VIAL IM (16:26)
--- NOTE | 2025-07-01 18:02 | PD.EDADDENDU ---
Emergency Room Addendum <Mirna Toledo - Last Filed: 07/01/25 22:49> Addendum Narrative: I took over the care from previous shift physician at 6 PM on 07/01/2025. See previous notes for complete H & P and ED course. I reviewed all diagnostic test results. My review of the Head CT report is NAD. Consider elective brain MRI follow-up, pre and post contrast, seizure protocol. My review of the Cervical Spine CT report is no fracture. Blood tests and urine tests Diagnoses include: Treatment here included Zofran 4 mg Motrin 800 mg Tylenol w/ Codeine #3 0600: Based on my best medical judgment, made decision no further evaluation or treatment indicated at this time. Patient pending LPS placement. Will be signed out to Dr. Ruby. Tanner Laura MD <Tanner Laura MD - Last Filed: 07/02/25 01:37> Addendum Narrative: I took over the care from previous shift physician, Dr. Higginbotham, at 6 PM on 07/01/2025. See previous notes for complete H & P and ED course. I reviewed all diagnostic test results. Diagnoses include: Suicidal ideation Recurrent seizures Pulmonary embolism Schizophrenia Patient is waiting for inpatient psychiatric placement. At 6 AM on 07/02/2025, the care of the patient was transferred to Dr. RUBY. During my watch, the patient remained stable. Tanner Laura MD
[2025-07-01] MEDS: ACETAMINOPHEN w/COD 300-30 TABLET 2 TAB PO (18:09)
[2025-07-01] MEDS: ONDANSETRON ODT 4 MG TABRAP PO (18:09)
[2025-07-02] VITALS (16 sets, daily range): BP systolic 95–125; BP diastolic 53–79; PULSE 63–103; RESP 14–33; TEMP 35.8–37.3; O2SAT 92–100; BMI 46.3
--- NOTE | 2025-07-02 06:29 | EDNOTE_ITS ---
Emergency Room Addendum Addendum Narrative: 0600: Care assumed from Dr. Laura, the previous shift emergency physician. Past medical, surgical, social and family history reviewed. Vitals and home medications reviewed. I will assume the care of the patient at this time, patient on a 5150 hold pending LPS placement. Please refer to the emergency department record for history and examination from initial visit.? Physical exam by me shows patient under no acute distress at this time. 0810: Nurse called me to the room, patient was actively seizing. About 90 seconds seizure. Placed an ultrasound-guided IV line see below under procedures for note. 0920: Discussed test HPI, PMHx, lab, radiology results and/or management with Dr. Burleson. Will admit for further evaluation and management. Accepts patient for admission. Diagnosis: Recurrent seizures ED Procedures Procedure Comment Procedure: Ultrasound-guided peripheral intravenous (IV) line placement Date/Time: 828 hours Location: Right antecubital (AC) fossa Indication: Difficult intravenous access Description: The right antecubital area was visualized using ultrasound. A suitable vein was identified. The skin was cleansed with antiseptic solution, and the vessel was accessed under direct ultrasound guidance. Flash of blood was obtained, and the catheter was advanced smoothly. The IV was flushed with normal saline and confirmed patent without infiltration. Outcome: Successful placement of ultrasound-guided IV in the right AC at 0829 hours. Complications: None. Tolerance: Patient tolerated the procedure well. Critical Care Time Critical Care Time Critical Care Time: Yes Total Critical Care Time (min.): 45 Attestation: The high probability of sudden, clinically significant deterioration in the patient?s condition required the highest level of my preparedness to intervene urgently. The services I provided to this patient were to treat and/or prevent clinically significant deterioration. Services included the following: chart data review, reviewing nursing notes and/or old charts, documentation time, insolvency consultant collaboration regarding findings and treatment options, medication orders and management, direct patient care, vital sign assessments and ordering, interpreting and reviewing diagnostic studies and lab tests. Aggregate critical care time includes only time during which I was engaged in work directly related to the patient?s care, as described above, whether at bedside or elsewhere in the Emergency Department. It did not include time spent performing other reported procedures or the services of residents, students, nurses or physician assistants. Results Objective Laboratory: Laboratory Last Values WBC 12.9 Thou/mm3 (3.6-11.0) H 06/29/25 13:10 RBC 4.27 Miln/mm3 (4.00-5.20) 06/29/25 13:10 Hgb 10.0 g/dL (12.0-16.0) L 06/29/25 13:10 Hct 31.9 % (36.0-46.0) L 06/29/25 13:10 MCV 75 fL (80-100) L 06/29/25 13:10 MCH 23.4 pg (25.0-35.0) L 06/29/25 13:10 MCHC 31.3 g/dl (31.0-37.0) 06/29/25 13:10 RDW Std Deviation 49.4 fL (36.4-46.3) H 06/29/25 13:10 Plt Count 434 Thou/mm3 (140-440) 06/29/25 13:10 Neut % (Auto) 72 % (37-80) 06/29/25 13:10 Lymph % (Auto) 20 % (10-50) 06/29/25 13:10 [place] % (Auto) 6 % (0-12) 06/29/25 13:10 Eos % (Auto) 1 % (0-10) 06/29/25 13:10 Baso % (Auto) 1 % (0-2.5) 06/29/25 13:10 Neut # (Auto) 9.3 Thou/mm3 (1.8-7.7) H 06/29/25 13:10 Lymph # (Auto) 2.5 Thou/mm3 (1.0-4.8) 06/29/25 13:10 [place] # (Auto) 0.8 Thou/mm3 (0.0-0.8) 06/29/25 13:10 Eos # (Auto) 0.1 Thou/mm3 (0.0-0.5) 06/29/25 13:10 Baso # (Auto) 0.1 Thou/mm3 (0.0-0.2) 06/29/25 13:10 Immature Gran # (Auto) 0.04 Thou/mm3 (0.00-0.00) H 06/29/25 13:10 Absolute Nucleated RBC 0.00 Thou/mm3 (0.00-0.00) 06/29/25 13:10 Immature Gran % 0 % (0-0) 06/29/25 13:10 Nucleated RBC % 0 /100 WBC (0) 06/29/25 13:10 Sodium 142 mMol/L (136-145) 06/29/25 13:10 Potassium 3.7 mMol/L (3.4-5.1) 06/29/25 13:10 Chloride 108 mMol/L (98-107) H 06/29/25 13:10 Carbon Dioxide 23.0 mMol/L (20.0-31.0) 06/29/25 13:10 Anion Gap 11 (7-16) 06/29/25 13:10 BUN 8 mg/dL (9-23) L 06/29/25 13:10 Creatinine 0.7 mg/dL (0.6-1.3) 06/29/25 13:10 Estim Creat Clear Calc 137.4 mL/min (>60) 06/29/25 13:10 eGFR > 60 See Note (60-) 06/29/25 13:10 BUN/Creatinine Ratio 11 Ratio (12-20) L 06/29/25 13:10 Glucose 90 mg/dL (74-106) 06/29/25 13:10 Calculated Osmolality 281 (275-295) 06/29/25 13:10 Calcium 9.2 mg/dL (8.3-10.6) 06/29/25 13:10 Corrected Calcium 9.2 mg/dL (8.5-10.1) 06/29/25 13:10 Total Bilirubin 0.4 mg/dL (0.3-1.2) 06/29/25 13:10 AST 13 U/L (0-34) 06/29/25 13:10 ALT 11 U/L (10-49) 06/29/25 13:10 Alkaline Phosphatase 98 U/L (46-116) 06/29/25 13:10 Total Protein 6.3 gm/dL (5.7-8.2) 06/29/25 13:10 Albumin 4.3 gm/dL (3.5-5.0) 06/29/25 13:10 Globulin 2.0 gm/dL (2.3-3.5) L 06/29/25 13:10 Albumin/Globulin Ratio 2.2 (1.2-2.2) 06/29/25 13:10 Salicylates < 3.0 mg/dL 06/29/25 13:10 Urine Opiates Screen Negative (Negative) 06/29/25 13:15 Urine Fentanyl Screen Negative (Negative) 06/29/25 13:15 Acetaminophen < 2.0 mcg/mL (10.0-20.0) L 06/29/25 13:10 Ur Barbiturates Screen Negative (Negative) 06/29/25 13:15 U Amphetamin/Meth Scrn Negative (Negative) 06/29/25 13:15 U Benzodiazepines Scrn Negative (Negative) 06/29/25 13:15 U Cocaine Metab Screen Negative (Negative) 06/29/25 13:15 U Marijuana (THC) Screen Negative (Negative) 06/29/25 13:15 Ethyl Alcohol < 3.0 mg/dL (0-10.0) 06/29/25 13:10 Imaging: Procedure(s): CT head/brain wo con Accession Number(s): [id number] cc: SAM LIM; Hitesh Chou MD; Merced Henning MD~ EXAMINATION: CT brain head without intravenous contrast 2D sagittal and coronal reconstructions. 3D reconstructions Date and time: June 29, 2025, 1622 hours INDICATIONS: Seizures today, patient fell with injury to the head, head pain TECHNIQUE AND FINDINGS: Multiple 5.0 mm slice Tekcis axial images of the brain 2D sagittal coronal reconstructions 3D reconstructions Ventricles are normal in size and configuration. No mass effect upon the ventricular system. No acute hemorrhage either intra or extra-axial Cranial vault appears intact IMPRESSION: Negative for acute hemorrhage, mass effect or midline shift Consider elective brain MRI follow-up, pre and post contrast, seizure protocol Dictated By: Hitesh Chou MD Procedure(s): CT cervical spine wo con Accession Number(s): [id number] cc: SAM LIM; Hitesh Chou MD; Merced Henning MD~ EXAMINATION: CT cervical spine without intravenous contrast 20 sagittal coronal reconstructions 3D reconstructions Date and time: June 29, 2025, 1442 hours INDICATIONS: Seizures today, ground-level fall with injury to the neck, neck pain CTDI: 19.7 DLP: 409 TECHNIQUE AND FINDINGS: Multiple 3.0 mm slice thickness axial images through the cervical spine 2D sagittal coronal reconstructions 3D reconstructions Low-dose protocols, adjustment of MA KV according to patient size Reversal normal cervical lordosis. No cervical fracture. Intact odontoid Satisfactory alignment posterior spinous processes IMPRESSION: No acute cervical fracture Dictated By: Hitesh Chou MD
[2025-07-02] MEDS: LEVOTHYROXINE SODIUM 25 MCG TABLET PO ×2 (06:38→06:40)
--- NOTE | 2025-07-02 06:42 | PC.NURSE ---
pot awake. pleasant and cooperative. pt asleep most of the evening.Has been calm and cooperative up once in the night to void. pt asked for sandwch.
--- NOTE | 2025-07-02 08:16 | PC.NURSE ---
patient was noted to ne on side and having an active seizure , MD at bedside and new orders for 2mg versed given to right thigh IM
[2025-07-02] MEDS: MIDAZOLAM INJ 1 MG/ML VIAL 2 ML 2 MG ×2 (08:43→09:11)
[2025-07-02] MEDS: LACOSAMIDE 50 MG TABLET 100 MG PO ×2 (08:43→21:23)
[2025-07-02] MEDS: levETIRAcetam INJ 100 MG/ML VIAL 5ML 1000 MG IVP (08:43)
[2025-07-02] MEDS: APIXABAN 2.5 MG TABLET 5 MG PO (08:43)
--- NOTE | 2025-07-02 09:03 | PC.NURSE ---
patient noted to have another seizure that lasted about 30 sec, at bedside
[2025-07-02] MEDS: ACETAMINOPHEN 325 MG TABLET 650 MG PO (09:54)
[2025-07-02] MEDS: ONDANSETRON INJ 2 MG/ML INJ 2 ML 4 MG IVP (10:07)
--- NOTE | 2025-07-02 10:28 | PC.CC ---
Carmina NUNES was consulted regarding patient by Dr. Ruby. Per Dr. Ruby will be a medical admit. Carmina NUNES called patient's conservator her mother, Carmela to provide an update that patient will be a medical admit. DES sent an email to the Care Integration team to follow up with the patient and also that the patient will require a mental health re-eval upon being medically cleared.
[2025-07-02 10:47] LABS: Lactate (Lactic Acid) 0.9 mMol/L (0.4-2.0)
[2025-07-02 11:06] LABS: Alanine Aminotransferase 11 U/L (10-49); Albumin, Serum 4.4 gm/dL (3.5-5.0); Albumin/Globulin Ratio 2.3 (1.2-2.2); Alkaline Phosphatase 93 U/L (46-116); Anion Gap 10 (7-16); Aspartate Amino Transferase 11 U/L (0-34); BUN/Creatinine Ratio 11 Ratio (12-20); Bilirubin,Total 0.2 mg/dL (0.3-1.2); Blood Urea Nitrogen 9 mg/dL (9-23); Calcium 9.3 mg/dL (8.3-10.6); Calcium (Corrected) 9.3 mg/dL (8.5-10.1); Carbon Dioxide 25.3 mMol/L (20.0-31.0); Chloride 108 mMol/L (98-107); Creatinine (Component) 0.8 mg/dL (0.6-1.3); Estimated Creatinine Clearance 120.2 mL/min (>60); Globulin 1.9 gm/dL (2.3-3.5); Glucose 100 mg/dL (74-106); Osmolality,Calculated 283 (275-295); Potassium 4.0 mMol/L (3.4-5.1); Sodium 143 mMol/L (136-145); Total Protein 6.3 gm/dL (5.7-8.2); eGFR > 60 See Note
[2025-07-02 11:18] LABS: Basophils # (Auto) 0.1 Thou/mm3 (0.0-0.2); Basophils % (Auto) 1 % (0-2.5); Eosinophils # (Auto) 0.3 Thou/mm3 (0.0-0.5); Eosinophils % (Auto) 2 % (0-10); Hematocrit 33.7 % (36.0-46.0); Hemoglobin 10.5 g/dL (12.0-16.0); Immature Granulocytes Auto 0.03 Thou/mm3 (0.00-0.00); Lymphocytes # (Auto) 3.0 Thou/mm3 (1.0-4.8); Lymphocytes % (Auto) 25 % (10-50); Mean Corpuscular HGB Conc 31.2 g/dl (31.0-37.0); Mean Corpuscular Hemoglobin 23.4 pg (25.0-35.0); Mean Corpuscular Volume 75 fL (80-100); Monocytes # (Auto) 0.8 Thou/mm3 (0.0-0.8); Monocytes % (Auto) 6 % (0-12); Neutrophils # (Auto) 7.9 Thou/mm3 (1.8-7.7); Neutrophils % (Auto) 66 % (37-80); Nucleated Red Blood Cell # 0.00 Thou/mm3 (0.00-0.00); Nucleated Red Blood Cell % 0 /100 WBC (0); Platelet Count 502 Thou/mm3 (140-440); RDW Standard Deviation 49.3 fL (36.4-46.3); Red Blood Count 4.48 Miln/mm3 (4.00-5.20); White Blood Count 12.0 Thou/mm3 (3.6-11.0)
--- NOTE | 2025-07-02 11:53 | PD.HHHP ---
Documentation for date of: 07/02/25 HPI - Hospitalist History of Present Illness History of present illness: Patient is a 25-year-old female who recently relocated from [place] days prior with a medical history of schizoaffective disorder, PTSD, DVT/PEs, seizure disorder, and previous suicide attempt presents to [facility] [place] emergency department with chief complaint of seizures. Patient presented to the emergency room 3 days prior with chief complaint of seizures. She reports she usually has 1 seizure a week. She follows a neurologist in [place]. She reports her current antiepileptic regimen is Keppra 1500 mg p.o. twice daily and Vimpat 100 mg twice daily. She has had multiple seizures in the ER over the course of the last 3 days. She had a seizure this morning that terminated with Versed. She also reports she drinks 10+ beers a day and has now been in the emergency room for approximately 3 days. She does feel like she is withdrawing from alcohol but denies any previous hospitalizations for alcohol withdrawal. She states she has had approximately 10 blood clots despite being on Eliquis and follows director of employer services in [place]. Patient reports she has a mood disorder schizoaffective and follows psychiatry in [place]. It appears patient is still taking Abilify. Patient reports approximately 1 week prior she attempted to commit suicide by taking Tylenol, gabapentin and Eliquis. She was treated in [facility] and eventually discharged. At bedside she currently endorses suicidal ideations but does not have a plan to hurt herself. Patient is on a hold. She endorses headaches. She denies chest pain, shortness of breath, abdominal pain, lower extremity swelling, and no urinary or GI symptoms to report at this time. Social Hx: Endorses daily alcohol use 10+ beers, intermittent tobacco use, denies illicit drugs ED Course: Presenting vital signs: Afebrile, P79, BP 98/71, RR 20, O2 sat 99% on 3 L nasal cannula Review of Systems Review of Systems Systems Reviewed: All systems reviewed, normal except as documented Past Medical History Past Medical History NEUROLOGIC: Positive Seizures and Epilepsy ENDOCRINE: Positive Hypothyroidism PSYCHO/SOCIAL: Positive Psychiatric Problems and Schizophrenia Surgical History SURGICAL: Negative Ear Surgery, Nephrectomy, Joint Replacement, Neurologic Surgery or Lumpectomy Social History SMOKING STATUS: Current some day smoker Meds Home Medications and Allergies Home Medications ?Medication ?Instructions ?Recorded ?Confirmed ?Type apixaban 5 mg tablet (Eliquis) 5 mg PO Q12H 06/29/25 06/29/25 History aripiprazole 10 mg tablet 10 mg PO DAILY 06/29/25 06/29/25 History levetiracetam 750 mg tablet 750 mg PO Q12H 06/29/25 06/29/25 History levothyroxine 25 mcg tablet 25 mcg PO DAILY 06/29/25 06/29/25 History rimegepant 75 mg disintegrating 75 mg PO DAILY 06/29/25 06/29/25 History tablet (Nurtec ODT) Allergies Allergy/AdvReac Type Severity Reaction Status Date / Time lithium Allergy Verified 06/29/25 12:13 Exam Vital Signs Temp Pulse Resp BP Pulse Ox O2 Del Method O2 Flow Rate 98.0 F 87 20 113/79 99 Nasal Cannula 3 07/02/25 11:39 07/02/25 11:39 07/02/25 11:39 07/02/25 11:39 07/02/25 11:39 07/02/25 11:39 07/02/25 11:39 Constitutional Constitutional: no acute distress, obese and somnolent Routine HEENT Exam Head: Present normocephalic and atraumatic ENT: Present mucous membranes moist and dentition normal Detailed Eye Exam Eyelids: bilateral: normal inspection Pupils: bilateral: regular, round and bilateral: reactive Routine Neck Exam Neck: Present supple, full ROM and trachea midline Routine Respiratory Exam Respiratory: Present chest non-tender, lungs clear, normal breath sounds, no resp distress and CTA bilaterally Routine Cardiovascular Exam Cardiovascular: Present RRR, S1 and S2 Routine Abdominal Exam Abdominal: Present soft and normoactive bowel sounds Routine Extremities Exam Extremities: Present full ROM, pulses intact and normal capillary refill Routine Back/Spine/Pelvis Exam Back/Spine: Present full ROM Routine Skin Exam Skin: Present intact, warm and normal turgor Routine Neurological Exam Neurological: Present alert, oriented X3, CN II-XII intact, normal reflexes and moving all extremities Routine Psychiatric Exam Psychiatric: Present suicidal ideation, cooperative, depressed and anxious Results - Hospitalist Labs Diagrams: 07/02/25 10:40 07/02/25 10:40 Labs: Short CBC 07/02/25 Range/Units 10:40 WBC 12.0 H (3.6-11.0) Thou/mm3 Hgb 10.5 L (12.0-16.0) g/dL Hct 33.7 L (36.0-46.0) % Plt Count 502 H D (140-440) Thou/mm3 BMP 07/02/25 10:40 Sodium 143 Potassium 4.0 Chloride 108 H Carbon Dioxide 25.3 BUN 9 Creatinine 0.8 Glucose 100 Calcium 9.3 Liver Function 07/02/25 Range/Units 10:40 Total Bilirubin 0.2 L (0.3-1.2) mg/dL AST 11 (0-34) U/L ALT 11 (10-49) U/L Alkaline Phosphatase 93 (46-116) U/L Albumin 4.4 (3.5-5.0) gm/dL Assessment & Plan -Hospitalist Additional Plan Additional Plan: Patient is a 25-year-old female who recently relocated from [place] days prior with a medical history of schizoaffective disorder, PTSD, DVT/PEs, Hypothyroidism, seizure disorder, and previous suicide attempt presents to [facility] [place] emergency department with chief complaint of seizures. #Seizure disorder #Breakthrough seizures - Patient has known history of seizure disorder and follows a neurologist in [place]. She reports her antiepileptic regimen is Keppra 1500 mg p.o. twice daily and Vimpat 100 mg p.o. twice daily. - She reports at baseline she usually has 1 seizure a week - Suspect etiology for breakthrough seizures is either medication noncompliance versus alcohol withdrawal versus unknown - CT head without contrast relatively within normal limits and CT cervical spine WNL - Plan: Start seizure precautions. Resume home antiepileptic regimen of Keppra 1500 mg twice daily and Vimpat. Consult in-house neurology, recommendations appreciated. # Suicidal ideation # Schizoaffective disorder # PTSD - Patient reports she had a suicide attempt approximately 1 week ago in [place] where she took Tylenol, gabapentin, and Eliquis - Plan: Patient is currently on a psychiatric hold. During my evaluation patient is still endorsing suicidal ideation but denies a plan. Recommend patient remains on a hold. Bedside sitter and suicide precautions. Continue home Abilify. Patient will likely need transfer to psychiatric facility once medically cleared. We will give Versed if seizure-like activity returns. #Alcohol withdrawal Patient drinks 10+ beers a day. She denies being hospitalized for alcohol withdrawal in the past. - Plan: Counseled on alcohol cessation. Symptoms relatively mild to moderate at this time although patient did receive Versed prior to my evaluation. Start CIWA protocol. # History of pulmonary embolism - Per patient she has had approximately 10 blood clots in the past. She reports she has even had a blood clot on Eliquis. - Plan: Patient follows up with a director of employer services in [place]. Unclear if she has received a hypercoagulable panel in the past. Nonetheless we will resume home Eliquis and patient should follow-up with her director of employer services as it is abnormal to have a recurrent thrombosis on a new oral anticoagulant. # Hypothyroidism - Plan: continue home levothyroxine DVT prophylaxis: Eliquis GI Proph: None indicated Diet: Regular Lines: PIV Code Status: Full code Dispo: Admit to the hospital for breakthrough seizures and further titration of antiepileptic regimen and neurology recommendations. Patient is actively endorsing suicidal ideations and remains on a psychiatric hold and will likely need transfer once medically cleared. Dr. Benjy MD Quality Measures Quality Measures none
--- NOTE | 2025-07-02 14:59 | PC.NURSE ---
Received patient to room from ED on [facility]. Upon arrival to room patient noted to be in midst of possible absence seizure staring off to side and blank expression. 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 Verbal and in no distress at this time. Placed in bed for comfort and seizure precautions initiated. 1:1 sitter at bedside.
--- NOTE | 2025-07-02 20:41 | XR_ITS ---
Examination: CT brain head without contrast. 2-D sagittal coronal reconstructions Date and time of exam: July 02, 2025, 2056 hours, comparison June 29, 2025 INDICATIONS: Stroke alert, seizure today with right-sided body weakness beginning 30 minutes ago CTDI: vol (mGy): 48.1 DLP: (mGycm): 1009 Technique: Multiple CT axial sections of the brain have been obtained, 5 mm slice thickness. Contrast has not been administered. 2-D sagittal, coronal reconstructions have been obtained Low dose protocols were performed. One or more of the following dose reduction techniques were used; automated exposure control, adjustment of the mA and/or KV according to patient size, use of iterative reconstruction technique. Findings: No significant ventricular enlargement. Intra-axial or extra-axial hemorrhage density is not seen. No mass effect or midline shift Basal cisterns are not remarkable. Fourth ventricle is midline. Cranial vault intact. Impression: Negative for acute hemorrhage, mass effect or midline shift Advise clinical correlation and follow-up accordingly
--- NOTE | 2025-07-02 20:41 | XR_ITS ---
Examination: CTA carotids with intravenous contrast CTA brain, head with intravenous contrast. 2-D sagittal, coronal reconstructions. 3-D reconstructions. Exam date and time: July 02, 2025, 2058 hours INDICATIONS: Stroke alert right sided body weakness beginning 30 minutes ago CTDI: vol (mGy) 51.88 DLP: (mGycm) 670 Technique: Multiple CTA axial brain, head carotid images post intravenous contrast injection 75 cc, [id number]. 2-D sagittal, coronal reconstructions. 3-D reconstructions, 3-D post processing including vascular maximum intensity projection images. Low dose protocols were performed. One or more of the following dose reduction techniques were used; automated exposure control, adjustment of the mA and/or KV according to patient size, use of iterative reconstruction technique. Findings: No significant common carotid carotid bifurcation internal carotid artery stenoses Codominant vertebral arteries with no critical stenoses No cerebral large vessel arterial occlusions or thrombus, dissection or cerebral aneurysm IMPRESSION: No significant neck arterial stenosis. No cerebral large vessel arterial occlusions or thrombus Brain MRI follow-up would best assess for demyelinating disease
--- NOTE | 2025-07-02 20:46 | EVENTNT_ITS ---
Documentation for date of: 07/02/25 Event Note Event Note: Room: [facility] Time: 2109 Reason for Call: New onset weakness Patient presentation: 25 y/o F with hx of seizure disorder who was admitted for breakthrough seizures. Initial head CT at time of admission was negative. At the time of my examination patient presented with weakness of the right side 1/5 both upper and lower extremities with decreased sensation as well as facial assymetry. Stroke alert was called and patient rushed to CT. Events: Stroke Alert Assessment: NIHSS 9-12, Stroke alert called New orders: Head CT, CTA, MRI Brain, EKG, troponins, PT INR, Anticoagulation namely Eliquis put on hold in view of acute mental changes Case discussed with my attending Dr. Brandi Mendoza MD PGY-2
--- NOTE | 2025-07-02 21:00 | PC.NURSE ---
When assessing patient found that, she had complaints of right sided extremity weakness, right facial numbness and tingling. [employer] weak more on the right side. Speech slow and slight slurred. NIHSS scale results where 4. Rapid response called at 2035 and then a stroke alert called at 2039. Tele neurology called for consult. Patient brought down to CT for a brain scan. Labs and EKG were also completed.
--- NOTE | 2025-07-02 21:14 | ECHO_ITS ---
Transthoracic Echo Report Ht (in): 60 Wt (lb): 237 Exam Location: Echo Lab Status: Inpatient Scanning Tech: Darby Joés Indications: Procedure Performed: BP: 122 / 70 HR: 83 Technical Quality: Technically difficult study MEASUREMENTS (Male / Female) Normal Values 2D ECHO LV Diastolic Diameter PLAX 4.0 cm 4.2 - 5.9 / 3.9 - 5.3 cm LV Systolic Diameter PLAX 2.9 cm IVS Diastolic Thickness 0.7 cm 0.6 - 1.0 / 0.6 - 0.9 cm LVPW Diastolic Thickness 1.0 cm 0.6 - 1.0 / 0.6 - 0.9 cm LV Relative Wall Thickness 0.4 LVOT Diameter 1.7 cm Aortic Root Diameter 2.6 cm LV Ejection Fraction MOD BP 62.3 % >= 55 % LV Cardiac Index MOD BP 2631.1 cm?/min?m? LV Ejection Fraction MOD 4C 65.2 % LV Cardiac Index MOD 4C 2876.1 cm?/min?m? LV Ejection Fraction 4C AL 65.7 % LV Cardiac Index 4C AL 3054.1 cm?/min?m? LV Ejection Fraction MOD 2C 60.4 % LV Cardiac Index MOD 2C 2435.0 cm?/min?m? LV Ejection Fraction 2C AL 59.4 % LV Cardiac Index 2C AL 2423.6 cm?/min?m? LA Volume Index 15.2 cm?/m? 16 - 28 cm?/m? M-MODE Aortic Root Diameter MM 2.3 cm LA Systolic Diameter MM 2.9 cm LA Ao Ratio MM 1.3 AV Cusp Separation MM 1.9 cm DOPPLER AV Peak Velocity 133.0 cm/s AV Peak Gradient 7.1 mmHg AV Mean Gradient 3.0 mmHg AV Velocity Time Integral 26.7 cm LVOT Peak Velocity 85.0 cm/s LVOT Peak Gradient 2.9 mmHg LVOT Velocity Time Integral 16.4 cm LVOT Cardiac Index 1403.2 cm?/min?m? AV Area Cont Eq vti 1.4 cm? AV Area Cont Eq pk 1.5 cm? MV Area PHT 4.3 cm? Mitral E Point Velocity 89.2 cm/s Mitral A Point Velocity 71.3 cm/s Mitral E to A Ratio 1.3 LV E' Lateral Velocity 12.3 cm/s Mitral E to LV E' Lateral Ratio 7.3 LV E' Septal Velocity 10.0 cm/s Mitral E to LV E' Septal Ratio 8.9 PV Peak Velocity 107.0 cm/s PV Peak Gradient 4.6 mmHg FINDINGS Left Ventricle Normal left ventricular size, wall thickness, systolic function with no obvious regional wall motion abnormalities. Normal left ventricular diastolic filling pattern for age. The ejection fraction is visually estimated at 55-60%. Right Ventricle The right ventricle is normal in size and systolic function. Left Atrium The left atrium is normal by two-dimensional, color flow and Doppler imaging with no structural abnormalities, no thrombus formation present. Right Atrium The right atrium is normal by two-dimensional imaging, color flow and Doppler imaging with no structural abnormalities, no thrombus formation present. Atrial Septum The interatrial septum appears normal with no evidence of a shunt. Aorta The aorta is normal by two-dimensional, color flow and Doppler interrogation. Mitral Valve The mitral valve is normal by two-dimensional, color flow and Doppler interrogation. There is no significant mitral valve regurgitation, stenosis or prolapse. Aortic Valve The aortic valve is trileaflet and normal by two-dimensional, color flow and Doppler interrogation. There is no significant aortic valve regurgitation. Tricuspid Valve The tricuspid valve is normal by two-dimensional, color flow and Doppler interrogation. There is trace tricuspid valve regurgitation. Pulmonic Valve The pulmonic valve is not well visualized. There is no significant pulmonic valve regurgitation. Vessels Inferior vena cava not well visualized. Pericardium The pericardium is normal by two-dimensional imaging. There is no significant pericardial effusion. CONCLUSIONS Indicaiton: Stroke Negative bubble study. No evidence of PFO Normal left ventricular size and function. Normal LV diastolic function. Estimated EF at 55-60%. The RV is normal in size and systolic function. Trace TR. Katheryn Conner (Electronically Signed) Final Date: 03 July 2025 14:30
[2025-07-02] MEDS: FOLIC ACID 1 MG TABLET PO (21:20)
[2025-07-02] MEDS: THIAMINE 100 MG TABLET PO (21:23)
[2025-07-02] MEDS: levETIRAcetam INJ 100 MG/ML VIAL 5ML 1500 MG IVP (21:23)
[2025-07-02] MEDS: ATORVASTATIN CALCIUM 20 MG TABLET 80 MG PO (21:23)
--- NOTE | 2025-07-02 21:34 | PC.NURSE ---
[employer] - called due to new onset weakness and numbness on right side of body. stroke alert called, tele neuro, labs, BG, head CT done.
[2025-07-02 22:08] LABS: Glucose Estimated Average 105 mg/dL (80-131); Hemoglobin A1C 5.3 % Hgb (4.8-6.0)
[2025-07-02 22:11] LABS: INR 1.0 (0.9-1.3); Prothrombin Time 10.6 Seconds (9.0-12.2)
[2025-07-02 22:15] LABS: Cardiac Risk Estimate 3.8 RATIO (3.7-5.6); Cholesterol 147 mg/dL (132-200); HDL Cholesterol 39 mg/dL (40-60); LDL Cholesterol,Calculated 90 mg/dL (0-130); Triglycerides 92 mg/dL (30-150); Troponin I < 0.002 ng/mL (0.0-0.045)
--- NOTE | 2025-07-02 22:34 | ESCONSULT_ITS ---
Tele Neuro Consultation Consultation Date 07/02/25 Most Recent Vital Signs Last Vital Signs Temp 97.5 F 07/02/25 21:50 Pulse 88 07/02/25 21:50 Resp 14 07/02/25 21:50 BP 105/65 07/02/25 21:50 Pulse Ox 96 07/02/25 21:50 O2 Del Method Nasal Cannula 07/02/25 20:00 O2 Flow Rate 2 07/02/25 21:50 Laboratory-Coagulation Panel PT 10.6 Seconds (9.0-12.2) 07/02/25 21:35 INR 1.0 (0.9-1.3) 07/02/25 21:35 Consultation Narrative [facility]rology [facility] Patient Name:???Shi Hook Date of :???2000 Identification Number:??? Date of Service:???07/02/2025 20:45:16 Diagnosis: ?I63.89 - Cerebrovascular accident (CVA) due to other mechanism (HCCC) Impression: ?Patient is evaluated by neurology for right-sided numbness and weakness and slurred speech. On my exam, patient had mild dysarthria but no aphasia, no facial asymmetry, drift in her right upper and lower extremities and endorsed decrease sensation in the right hemibody. NIHSS of [address] head demonstrated no acute abnormalities and CT angiogram was negative for any LVO. Patient was not a candidate for IV thrombolytics due to use of Eliquis. Given new unilateral numbness and weakness, I would recommend further imaging with MRI brain to rule out CVA. Additionally, given concern for possible CVA, would recommend holding Eliquis until MRI brain results are obtained. Our recommendations are outlined below. Recommendations: ? Neuro Checks (Q4) ? Bedside Swallow Eval ? DVT Prophylaxis ? IV Fluids, Normal Saline ? Head of Bed 30 Degrees ? Euglycemia and Avoid Hyperthermia (PRN Acetaminophen) ? Hold Anticoagulation for Now ? Antihypertensives PRN if Blood pressure is greater than 220/120 or there is a concern for End organ damage/contraindications for permissive HTN. If blood pressure is greater than 220/120 give labetalol PO or IV or Vasotec IV with a goal of 15% reduction in BP during the first 24 hours. ?Obtain MRI brain with and without contrast Sign Out: ? Discussed with Primary Attending Advanced Imaging:CTA Head and Neck Completed. LVO:No Patient is not a candidate for SUZETTE Metrics: Last Known Well: 07/02/2025 20:30:00 Dispatch Time: 07/02/2025 20:45:16 Initial Response Time: 07/02/2025 20:47:00Symptoms: Right sided numbness and weakness, slurred speech. Initial patient interaction: 07/02/2025 21:01:49 NIHSS Assessment Completed: 07/02/2025 21:05:50Patient is not a candidate for Thrombolytic. Thrombolytic Medical Decision: 07/02/2025 21:05:52Patient was not deemed candidate for Thrombolytic because of following reasons: Use of NOAC in last [address] Head: I personally reviewed all the CT images that were available to me and it showed: No acute abnormalities. Primary Provider Notified of Diagnostic Impression and Management Plan on: 07/02/2025 21:10:00 Spoke With: Dr. Prieto Able to Reach 07/02/2025 21:10:00 History of Present Illness:Patient is a 25 year old Female. Inpatient stroke alert was called for symptoms of Right sided numbness and weakness, slurred speech. Patient is evaluated by neurology for right-sided numbness and weakness and slurred speech. Patient initially presented to the ED with complaint of seizures, and reported seizure frequency of 1/week. She reports that she follows with a neurologist in [place] and is currently on Keppra 1500 mg twice daily and Vimpat 100 mg daily. She also reports a history of DVTs and PEs and is currently on Eliquis. Nurse reports that patient was last normal around 8:30 PM, and shortly after patient complained of tingling on the right side of her face and then it became numb, this then progressed to numbness and weakness in her right arm and leg. She also reports that her speech feels off. She states that she has had similar symptoms after having a seizure in the past, however has not had a seizure this evening. ? Past Medical History: ?Seizures Other PMH:? Schizoaffective disorder, DVT/PE Medications: Anticoagulant use:??Yes?Eliquis No Antiplatelet use Reviewed EMR for current medications Allergies:? Reviewed Social History: Alcohol Use: Yes Family History: There is no family history of premature cerebrovascular disease pertinent to this consultation ROS : 14 Points Review of Systems was performed and was negative except mentioned in HPI. Past Surgical History: There Is No Surgical History Contributory To Today?s Visit ? Examination: BP(105/65),?Pulse(76), 1A: Level of Consciousness - Alert; keenly responsive?+ 0 1B: Ask Month and Age - Both Questions Right?+ 0 1C: Blink Eyes & Squeeze Hands - Performs Both Tasks?+ 0 2: Test Horizontal Extraocular Movements - Normal?+ 0 3: Test Visual Avendano - No Visual Loss?+ 0 4: Test Facial Palsy (Use Grimace if Obtunded) - Normal symmetry?+ 0 5A: Test Left Arm Motor Drift - No Drift for 10 Seconds?+ 0 5B: Test Right Arm Motor Drift - No Drift for 10 Seconds?+ 0 6A: Test Left Leg Motor Drift - No Drift for 5 Seconds?+ 0 6B: Test Right Leg Motor Drift - Drift, hits bed?+ 2 7: Test Limb Ataxia (FNF/Heel-Hurtado) - No Ataxia?+ 0 8: Test Sensation - Mild-Moderate Loss: Less Sharp/More Dull?+ 1 9: Test Language/Aphasia - Normal; No aphasia?+ 0 10: Test Dysarthria - Mild-Moderate Dysarthria: Slurring but can be understood?+ 1 11: Test Extinction/Inattention - No abnormality?+ 0 NIHSS Score:?4 Pre-Morbid Modified [place] Scale: 0 Points = No symptoms at all Spoke with :?Dr. Prieto This consult was conducted in real time using interactive audio and video technology. Patient was informed of the technology being used for this visit and agreed to proceed. Patient located in hospital and provider located at home/office setting. Patient is being evaluated for possible acute neurologic impairment and high probability of imminent or life-threatening deterioration. I spent total of 35 minutes providing care to this patient, including time for face to face visit via telemedicine, review of medical records, imaging studies and discussion of findings with providers, the patient and/or family. Dr Jose Campos [facility] For Inpatient follow-up with [facility] physician please call [facility] at . As we are not an outpatient service for any post hospital dis charge needs please contact the hospital for assistance. If you have any questions for the [facility] physicians or need to reconsult for clinical or diagnostic changes please contact us via [facility] at . Signature :?Jose Campos ?
--- NOTE | 2025-07-02 23:55 | PD.NEUROCONS ---
History of Present Illness Data of Consult Requesting Physician: Cesar Burleson MD Primary Care Provider: SAM LIM Consult Narrative History of present illness: Patient is a 25-year-old right-handed white female with a history of DVT and PE on Eliquis and seizure disorder on Keppra and Vimpat presented with right-sided numbness and weakness and slurred speech. Patient initially presented to the ER with complaint of seizures, and reported seizure frequency of 1/week. She reports that she follows with a neurologist in [place] and is currently on Keppra 1500 mg twice daily and Vimpat 100 mg daily. She just moved here from [place] weeks ago after her brother . she also reports a history of DVTs and PEs and is currently on Eliquis. Nurse reports that patient was last normal around 8:30 PM, and shortly after patient complained of tingling on the right side of her face and then it became numb, this then progressed to numbness and weakness in her right arm and leg. She also reports that her speech feels off. She states that she has had similar symptoms after having a seizure in the past, however has not had a seizure this evening. She does have positive family history of seizures. ? cc:: cc: Cesar Burleson MD Review of Systems Review of Systems Systems Reviewed: All systems reviewed, normal except as documented Past Medical History Past Medical History NEUROLOGIC: Positive Seizures and Epilepsy ENDOCRINE: Positive Hypothyroidism PSYCHO/SOCIAL: Positive Psychiatric Problems and Schizophrenia Surgical History SURGICAL: Negative Ear Surgery, Nephrectomy, Joint Replacement, Neurologic Surgery or Lumpectomy Social History SMOKING STATUS: Current some day smoker Meds Home Medications and Allergies Home Medications ?Medication ?Instructions ?Recorded ?Confirmed ?Type apixaban 5 mg tablet (Eliquis) 5 mg PO Q12H 06/29/25 06/29/25 History aripiprazole 10 mg tablet 10 mg PO DAILY 06/29/25 06/29/25 History levetiracetam 750 mg tablet 750 mg PO Q12H 06/29/25 06/29/25 History levothyroxine 25 mcg tablet 25 mcg PO DAILY 06/29/25 06/29/25 History rimegepant 75 mg disintegrating 75 mg PO DAILY 06/29/25 06/29/25 History tablet (Nurtec ODT) Allergies Allergy/AdvReac Type Severity Reaction Status Date / Time lithium Allergy Verified 06/29/25 12:13 Exam - Neurology Vital Signs Temp Pulse Resp BP Pulse Ox O2 Del Method O2 Flow Rate 97.5 F 88 14 105/65 96 Nasal Cannula 2 07/02/25 21:50 07/02/25 21:50 07/02/25 21:50 07/02/25 21:50 07/02/25 21:50 07/02/25 20:00 07/02/25 21:50 Narrative Exam GENERAL APPEARANCE: Well-developed, obese built white female in no acute distress. HEENT: Normocephalic, atraumatic, extraocular movements intact. Pupils: Equal reacting to light and accommodation, tympanic membranes are bilaterally intact. There is no bulge or retraction. Throat without erythema or exudate. Moist oral mucosa. NECK: Supple, no JVD or bruits. CARDIOVASULAR: Heart: S1, S2 heard, regular without S3-S4 or murmur no rubs or gallops. LUNGS/CHEST: Clear to auscultation bilaterally. No rails, rhonchi, or wheezing. Normal inspection. ABDOMEN: Soft, nontender, with normal bowel sounds. No pulsatile masses. No rebound, rigidity, or guarding. Normal inspection and palpation. EXTREMITIES: Normal inspection and palpation. No edema, clubbing or cyanosis. SKIN: Warm and dry without rashes. Normal inspection. MUSCULOSKELETAL: No cervical, thoracic, lumbar or midline bony tenderness. Normal inspection. NEURO: Alert, awake and oriented x3. Cranial nerves: II through XII grossly intact. Speech and language: Normal with no dysarthria or dysphasia. Motor system: Tone and bulk: Normal: Strength: 5 out of 5 in all 4 extremities; No pronator drift noted. Deep tendon reflexes: 2+ bilaterally symmetrical. Plantar reflex: Downgoing bilaterally. Sensory system: Intact to all modalities of sensation bilaterally. Coordination: Intact to [id number] and pcna-xobm-ykzf test bilaterally. No ataxia, no dysmetria, or dysdiadochokinesia noted. No intention tremors noted. Gait: Normal. Toe, heel, tandem walk all are normal. Romberg: Negative. No signs of meningeal irritation noted. PSYCHIATRIC: Normal mood and affect. She did have suicidal ideation and is now resolving, continues to have one-on-one supervision. Results Labs 07/03/25 05:00 07/03/25 05:00 Labs: Short CBC 07/02/25 Range/Units 10:40 WBC 12.0 H (3.6-11.0) Thou/mm3 Hgb 10.5 L (12.0-16.0) g/dL Hct 33.7 L (36.0-46.0) % Plt Count 502 H D (140-440) Thou/mm3 BMP 07/02/25 10:40 Sodium 143 Potassium 4.0 Chloride 108 H Carbon Dioxide 25.3 BUN 9 Creatinine 0.8 Glucose 100 Calcium 9.3 Cardiac Enzymes 07/02/25 Range/Units 21:35 Troponin I < 0.002 (0.0-0.045) ng/mL Liver Function 07/02/25 Range/Units 10:40 Total Bilirubin 0.2 L (0.3-1.2) mg/dL AST 11 (0-34) U/L ALT 11 (10-49) U/L Alkaline Phosphatase 93 (46-116) U/L Albumin 4.4 (3.5-5.0) gm/dL Assessment & Plan Assessment and plan (1) Recurrent seizures: Status: Acute Assessment and plan: Follow-up with MRI brain and EEG to evaluate further. Continue with the Keppra and lacosamide at current doses. Continue to watch her closely for any suicidal or homicidal ideation.
[2025-07-03] VITALS (8 sets, daily range): BP systolic 93–122; BP diastolic 59–83; PULSE 59–104; RESP 18–97; TEMP 35.8–36.6; O2SAT 97–100; BMI 11.0
--- NOTE | 2025-07-03 | PC.NURSE ---
During this neuro check, the patient complains that her left side is now feeling slightly weak. Her NIHSS is now 6. Dr. Gillis called and came to bedside to assess the patient. No new orders, just to monitor patient further and inform the physician if there is any other changes. Spoke to Tres JACKSONparadi operator, made aware of my concerns. Tres spoke to Dr. Gillis and both felt no need for another rapid response at present. One on one sitter remains at bedside.
[2025-07-03] MEDS: SODIUM CHLORIDE 0.9% 1000 ML 1,000 ML 75 ML IV ×2 (01:53→15:18)
--- NOTE | 2025-07-03 02:00 | PC.NURSE ---
Patient complains of feeling dizzy but no headache. Dr. Gillis notified. States will place orders for IV fluids. Will monitor the patient further.
[2025-07-03 05:59] LABS: Basophils # (Auto) 0.1 Thou/mm3 (0.0-0.2); Basophils % (Auto) 1 % (0-2.5); Eosinophils # (Auto) 0.3 Thou/mm3 (0.0-0.5); Eosinophils % (Auto) 3 % (0-10); Hematocrit 31.0 % (36.0-46.0); Hemoglobin 9.7 g/dL (12.0-16.0); Immature Granulocytes Auto 0.04 Thou/mm3 (0.00-0.00); Lymphocytes # (Auto) 2.7 Thou/mm3 (1.0-4.8); Lymphocytes % (Auto) 27 % (10-50); Mean Corpuscular HGB Conc 31.3 g/dl (31.0-37.0); Mean Corpuscular Hemoglobin 23.5 pg (25.0-35.0); Mean Corpuscular Volume 75 fL (80-100); Monocytes # (Auto) 0.7 Thou/mm3 (0.0-0.8); Monocytes % (Auto) 7 % (0-12); Neutrophils # (Auto) 6.1 Thou/mm3 (1.8-7.7); Neutrophils % (Auto) 62 % (37-80); Nucleated Red Blood Cell # 0.00 Thou/mm3 (0.00-0.00); Nucleated Red Blood Cell % 0 /100 WBC (0); Platelet Count 425 Thou/mm3 (140-440); RDW Standard Deviation 49.7 fL (36.4-46.3); Red Blood Count 4.12 Miln/mm3 (4.00-5.20); White Blood Count 9.8 Thou/mm3 (3.6-11.0)
[2025-07-03] MEDS: LEVOTHYROXINE SODIUM 25 MCG TABLET PO (06:21)
[2025-07-03 06:44] LABS: Alanine Aminotransferase 8 U/L (10-49); Albumin, Serum 3.9 gm/dL (3.5-5.0); Albumin/Globulin Ratio 2.4 (1.2-2.2); Alkaline Phosphatase 79 U/L (46-116); Anion Gap 12 (7-16); Aspartate Amino Transferase 11 U/L (0-34); BUN/Creatinine Ratio 14 Ratio (12-20); Bilirubin,Total 0.2 mg/dL (0.3-1.2); Blood Urea Nitrogen 10 mg/dL (9-23); Calcium 8.8 mg/dL (8.3-10.6); Calcium (Corrected) 8.9 mg/dL (8.5-10.1); Carbon Dioxide 23.2 mMol/L (20.0-31.0); Chloride 108 mMol/L (98-107); Creatinine (Component) 0.7 mg/dL (0.6-1.3); Estimated Creatinine Clearance 136.5 mL/min (>60); Globulin 1.6 gm/dL (2.3-3.5); Glucose 92 mg/dL (74-106); Magnesium 1.9 mg/dL (1.6-2.6); Osmolality,Calculated 283 (275-295); Phosphorous 3.9 mg/dL (2.4-5.1); Potassium 4.0 mMol/L (3.4-5.1); Sodium 143 mMol/L (136-145); Thyroid Stimulating Hormone 0.98 uIU/mL (0.55-4.78); Total Protein 5.5 gm/dL (5.7-8.2); eGFR > 60 See Note
[2025-07-03] MEDS: FOLIC ACID 1 MG TABLET PO (09:05)
[2025-07-03] MEDS: LACOSAMIDE 50 MG TABLET 100 MG PO (09:05)
[2025-07-03] MEDS: THIAMINE 100 MG TABLET PO (09:05)
[2025-07-03] MEDS: levETIRAcetam INJ 100 MG/ML VIAL 5ML 1500 MG IVP (09:27)
--- NOTE | 2025-07-03 09:29 | ESPR_ITS ---
<Statement entered by Tyrell Braga MD - 07/04/25 12:57> I saw and examined patient personally and supervised PGY 1 resident, Dr. Liu with formulating a management plan. I agree with the documentation with the exceptions as listed below. Patient currently pending MRI brain as part of her stroke workup. Also today she had a possible seizure episode and was given midazolam 2 mg IV x 1 after which seizure aborted. Reached out to her mother for further information, see event note for more details. Once patient is medically cleared we will refer to social media marketer for crisis evaluation. Anticipate medical clearance within 24 to 48 hours. Plan of care discussed with Attending Dr. Benjy Braga MD PGY 2 Disclaimer: This note was dictated by speech recognition. Minor errors in honing machine operator semiautomatic may be present due to voice recognition software. Documentation for date of: 07/03/25 Subjective Subjective Interval history: Patient examined bedside, labs reviewed. Patient was enjoying her breakfast and consumed most of it. Patient endorses ongoing right side hemisphere sensory deficits but is inappropriately unconcerned with lack of sensation. States she was seeking out psych help before the seziures began. She and her partner recently moved out to [place] 4-6 months ago, but there is nothing for her to do. She endorses history of cece, talking very fast, and staying up all night when she last trialed anti-depressants. Endorsing ongoing feelings of helplessness and feeling as though she would be better off not alive. States she has SI with plan to overdose on pills. Conservator (adoptive mother) was spoken to. States patient was adopted at age 12 and is diagnosed with reactive attachment disorder. She is aware of patients pseudo seizures stating that no eegs have ever shown epilepsy. Exam Vital Signs Temp Pulse Resp BP Pulse Ox O2 Del Method O2 Flow Rate 97.8 F 83 24 H 122/70 97 Nasal Cannula 2 07/03/25 08:00 07/03/25 08:00 07/03/25 08:00 07/03/25 08:00 07/03/25 08:00 07/03/25 08:00 07/03/25 08:00 Narrative Exam GENERAL APPEARANCE: AOx3. NAD, activity normal for age, well developed/ well nourished, no cyanosis, pallor, or diaphoresis. HEENT: Normocephalic atraumatic, no facial trauma, neck is supple. Lids/conjunctiva normal. Mucous membranes moist, nares normal, lips/teeth normal uvula midline without oral pharyngeal erythema, exudate or swelling TMs normal bilaterally. No lymphangitis/lymphedema. CARDIAC: Regular rate and rhythm, S1+S2 heard. No murmurs, rubs, or gallops noted RESPIRATORY: respiratory effort normal, speaks in full sentences, no tripod position, no accessory muscle use. Lungs clear to auscultation without rhonchi, wheezes, rales ABDOMINAL: NBS. Soft, ND/NT. No evidence of fluid wave. No pulsatile masses on exam, rebound tenderness, Coombs sign or pain over Mcburney's point. MUSCLES/EXTREMITIES: No abnormal range of motion, no swelling. DERM: Warm, pink and dry. No rashes, dermatoses, petechiae or lesions. NEUROLOGICAL: Speech is clear and appropriate. Normal level of consciousness. Gait and coordination are normal. 5/5 strength in all extremities. PSYCH: Normal mood. Affect is superficial and inappropriately unconcerned with content. Judgement/competence is impaired Objective Labs 07/04/25 05:27 07/04/25 05:27 Labs: Laboratory Results - last 24 hr 07/02/25 07/02/25 07/03/25 10:40 21:35 05:00 WBC 12.0 H 9.8 RBC 4.48 4.12 Hgb 10.5 L 9.7 L Hct 33.7 L 31.0 L MCV 75 L 75 L MCH 23.4 L 23.5 L MCHC 31.2 31.3 RDW Std Deviation 49.3 H 49.7 H Plt Count 502 H D 425 D Neut % (Auto) 66 62 Lymph % (Auto) 25 27 Dickinson % (Auto) 6 7 Eos % (Auto) 2 3 Baso % (Auto) 1 1 Neut # (Auto) 7.9 H 6.1 Lymph # (Auto) 3.0 2.7 Dickinson # (Auto) 0.8 0.7 Eos # (Auto) 0.3 0.3 Baso # (Auto) 0.1 0.1 Immature Gran # (Auto) 0.03 H 0.04 H Absolute Nucleated RBC 0.00 0.00 Immature Gran % 0 0 Nucleated RBC % 0 0 PT 10.6 INR 1.0 Sodium 143 143 Potassium 4.0 4.0 Chloride 108 H 108 H Carbon Dioxide 25.3 23.2 Anion Gap 10 12 BUN 9 10 Creatinine 0.8 0.7 Estim Creat Clear Calc 120.2 136.5 eGFR > 60 > 60 BUN/Creatinine Ratio 11 L 14 Glucose [address] Glu mg/dL 105 Hemoglobin A1c 5.3 Calculated Osmolality 283 283 Lactic Acid 0.9 Calcium 9.3 8.8 Corrected Calcium 9.3 8.9 Phosphorus 3.9 Magnesium 1.9 Total Bilirubin 0.2 L 0.2 L AST 11 11 ALT 11 8 L Alkaline Phosphatase 93 79 Troponin I < 0.002 Total Protein 6.3 5.5 L Albumin 4.4 3.9 D Globulin 1.9 L 1.6 L Albumin/Globulin Ratio 2.3 H 2.4 H Triglycerides 92 Cholesterol 147 LDL Cholesterol, Calc 90 HDL Cholesterol 39 L Cholesterol/HDL Ratio 3.8 TSH 0.98 Quality Measures Quality Measures none Assessment & Plan Assessment Current Active Medications: Generic Name Dose Route Start Last Admin Trade Name Freq PRN Reason Stop Dose Admin Acetaminophen 650 mg 07/02/25 09:34 07/02/25 09:54 Acetaminophen 325 Mg Tablet PO 08/01/25 09:33 650 mg Q6H PRN Administration Fever >101.5 Apixaban 5 mg 07/01/25 09:00 07/02/25 21:24 Apixaban 2.5 Mg Tablet PO 07/22/25 08:59 Not Given On Hold: 07/03/25 00:52 BID COLLIN Atorvastatin Calcium 80 mg 07/02/25 21:00 07/02/25 21:23 Atorvastatin Calcium 20 Mg Tablet PO 08/01/25 20:59 80 mg HS COLLIN Administration Folic Acid 1 mg 07/02/25 21:00 07/03/25 09:05 Folic Acid 1 Mg Tablet PO 07/07/25 20:59 1 mg BID COLLIN Administration Sodium Chloride 1,000 mls @ 75 mls/hr 07/03/25 01:34 07/03/25 01:53 Ns IV 08/02/25 01:33 75 mls/hr .[id number] COLLIN Administration Lacosamide 100 mg 07/01/25 09:00 07/03/25 09:05 Lacosamide 50 Mg Tablet PO 07/31/25 08:59 100 mg BID COLLIN Administration Levetiracetam 1,500 mg 07/02/25 21:00 07/03/25 09:27 Levetiracetam Inj 100 Mg/Ml Vial 5ml IVP 08/01/25 20:59 1,500 mg Q12HR COLLIN Administration Levothyroxine Sodium 25 mcg 07/04/25 06:00 Levothyroxine Sodium 25 Mcg Tablet PO 08/03/25 05:59 ACBR COLLIN Lorazepam 1 mg 07/02/25 09:37 07/02/25 09:54 Lorazepam 0.5 Mg Tablet PO 07/07/25 09:36 1 mg Q4HR PRN Administration CIWA SCORE 7-11 Lorazepam 0.5 mg 07/02/25 09:37 07/02/25 16:28 Lorazepam 0.5 Mg Tablet PO 07/07/25 09:36 0.5 mg Q4HR PRN Administration CIWA Score 2-6 Lorazepam 2 mg 07/02/25 09:37 Lorazepam 0.5 Mg Tablet PO 07/07/25 09:36 Q4HR PRN CIWA SCORE 12-15 Ondansetron HCl 4 mg 07/02/25 09:34 07/02/25 10:07 Ondansetron Inj 2 Mg/Ml Inj 2 Ml IVP 08/01/25 09:33 4 mg Q6H PRN Administration NAUSEA OR VOMITING Protocol Thiamine HCl 100 mg 07/02/25 21:00 07/03/25 09:05 Thiamine 100 Mg Tablet PO 07/07/25 20:59 100 mg BID COLLIN Administration Plan Patient is a 25-year-old female who recently relocated from [place] days prior with a medical history of schizoaffective disorder, PTSD, DVT/PEs, Hypothyroidism, seizure disorder, and previous suicide attempt presents to [facility] emergency department with chief complaint of seizures. A LUMBER INSPECTOR was called for seizure activity today, most likely due to pseudoseizures. #Cluster B symptomatology #Neuropsychiatric agitation/psuedo seizures #Seizure disorder #Breakthrough seizures - Patient has known history of seizure disorder and follows a neurologist in [place]. She reports her antiepileptic regimen is Keppra 1500 mg p.o. twice daily and Vimpat 100 mg p.o. twice daily. - She reports at baseline she usually has 1 seizure a week - Suspect etiology for breakthrough seizures is either medication noncompliance versus alcohol withdrawal versus unknown - Conservator/adoptive mother confirms patient has long history of pseudo seizures and her work up and EEGs are always negative. - CT head without contrast relatively within normal limits and CT cervical spine WNL - Plan: Start seizure precautions. Resume home antiepileptic regimen of Keppra 1500 mg twice daily and Vimpat. Consult in-house neurology, recommendations appreciated. -FUP EEG -FUP MRI # Suicidal ideation # Schizoaffective disorder # PTSD - Patient reports she had a suicide attempt approximately 1 week ago in [place] where she took Tylenol, gabapentin, and Eliquis - Plan: Patient is currently on a psychiatric hold. During my evaluation patient is still endorsing suicidal ideation but denies a plan. Recommend patient remains on a hold. Bedside sitter and suicide precautions. Continue home Abilify. Patient will likely need transfer to psychiatric facility once medically cleared. We will give Versed if seizure-like activity returns. #Alcohol withdrawal Patient drinks 10+ beers a day. She denies being hospitalized for alcohol withdrawal in the past. - Plan: Counseled on alcohol cessation. Symptoms relatively mild to moderate at this time although patient did receive Versed prior to my evaluation. Start CICO protocol. -Thiamine 100mg PO BID # History of pulmonary embolism - Per patient she has had approximately 10 blood clots in the past. She reports she has even had a blood clot on Eliquis. - Plan: Patient follows up with a site acquisition manager in [place]. Unclear if she has received a hypercoagulable panel in the past. Nonetheless we will resume home Eliquis and patient should follow-up with her site acquisition manager as it is abnormal to have a recurrent thrombosis on a new oral anticoagulant. # Hypothyroidism - Plan: continue home levothyroxine 25mcg PO DVT prophylaxis: Eliquis GI Proph: None indicated Diet: Regular Lines: PIV Code Status: Full code Dispo: Admit to the hospital for breakthrough seizures and further titration of antiepileptic regimen and neurology recommendations. Patient is actively endorsing suicidal ideations and remains on a psychiatric hold and will likely need transfer once medically cleared. Patient seen and reviewed with attending Dr. Burleson and supervising resident Dr. Braga. Note written by Dieudonne Liu MD PGY-1 Attending Provider Attestation/Addendum I have examined the patient, reviewed labs and imaging findings, discussed the case with the resident(s), and reviewed entered orders. I agree with the plan of care as outlined in this note, with these additional summaries/recommendations: Patient seen at bedside. No acute overnight events. Patient had rapid response this morning for possible seizure versus pseudoseizure. Patient endorses a history of both but cannot tell a difference when they are present. Continue antiepileptics. EEG pending. Continue CICO protocol for alcohol withdrawal. Patient continues to endorse suicidal ideation with a plan. Patient is conserved by her mother out of [place]. If patient leaves AGAINST MEDICAL ADVICE we will notify local Police Department as patient is high risk for self- harm. Continue Eliquis for pulmonary embolism. Continue levothyroxine for hypothyroidism. In-house neurology consulted, recommendations appreciated. Patient updated on the plan and in agreement. All questions answered to satisfaction. Please see residents note for additional details of management. Dr. Benjy MD
--- NOTE | 2025-07-03 10:00 | PC.SS ---
Addendum entered by JULI Davison 07/03/25 15:55: OCEAN EXPORT ACCOUNT MANAGER was notified by Dr. Burleson and Dr. Braga that patient was making statements that she was going to leave the hospital. Doctor Maria Luz spoke with patient and informed her she is not medically clear. OCEAN EXPORT ACCOUNT MANAGER Zenaida and FARMWORKER RICE Annette informed Dr. Burleson that patients mother is her guardian and should be notified for medical decisions. OCEAN EXPORT ACCOUNT MANAGER notified doctor Maria Luz that if patient is not medically clear she is unable to do mental health assessment, if patient leaves hospital, staff must notify PD. Addendum entered by JULI Davison 07/03/25 14:37: Rounding note: pending neurology recommendation, MRI, EEG. Original Note: SS update: patient had rapid, is still pending neuro rec, not medically clear, will need MH evaluation once medically clear.
--- NOTE | 2025-07-03 10:07 | EKG_ITS ---
[facility] Test Date: 2025-07-03 Pat Name: FRITZ MINER [facility] Fisheries Manager: JOLEEN : 2000 Requested By: Tootie Walters Order Number: [id number] Reading MD: Tootie Walters Measurements Intervals [place] Rate: 96 P: 51 CT: 172 QRS: 74 QRSD: 72 T: 14 QT: 340 QTc: 432 Interpretive Statements SINUS RHYTHM No previous ECG available for comparison /store/S0/[id number]
[2025-07-03] MEDS: LORazepam 2 MG/ML VIAL IVP (10:15)
--- NOTE | 2025-07-03 10:21 | PD.RESEVENT ---
Documentation for date of: 07/03/25 Event Note Event Note: 07/03/2025, EQUIPMENT CLEANER AND TESTER was called at time: 10:05 AM for bed#265 for seizure activity. Patient seen and assessed in hospital bed in no apparent distress, able to nonverbally answer questions and clearly indicates that she was ok. Vitals: afebrile, HR 92, BP 114/83, RR 34 O2 100%. Physical Exam: patient did not have tongue biting or loss of bowel function. Was able to communicate nonverbally and provide eye contact during her shaking of the left foot. Foot shaking would extinguish with gentle holding by provider and then begin again after a few moments when pressure is released. labs/workup: Prolactin, CBC, CMP, CK, EKG, EEG Tx/Intervention: Lorazepam 2mg IVP x1 and Lorazepam 1mg IVP x1 Decision: Seizure lasted less than 5 minutes high clinical suspicion for PNES, MDD with psychotic features, or breakthrough seziure. Will r/o with EEG and MRI. Attending made aware and will continue to monitor patient as well.
[2025-07-03 10:37] LABS: Lactate (Lactic Acid) 1.6 mMol/L (0.4-2.0)
[2025-07-03 10:38] LABS: Allen Test Performed/OK; Base Excess 2 (-3-3); HCO3 26 mEq/L (20-26); Inspired Oxygen, FIO2 21 %; O2 Saturation 98 % (91-98); PCO2 40 mmHg (32.0-48.0); PO2 97 mmHg (83-108); Puncture Site Right Radial; pH, Arterial 7.42 (7.35-7.45)
[2025-07-03 10:49] LABS: Basophils # (Auto) 0.1 Thou/mm3 (0.0-0.2); Basophils % (Auto) 1 % (0-2.5); Eosinophils # (Auto) 0.3 Thou/mm3 (0.0-0.5); Eosinophils % (Auto) 2 % (0-10); Hematocrit 34.7 % (36.0-46.0); Hemoglobin 10.5 g/dL (12.0-16.0); Immature Granulocytes Auto 0.07 Thou/mm3 (0.00-0.00); Lymphocytes # (Auto) 2.3 Thou/mm3 (1.0-4.8); Lymphocytes % (Auto) 23 % (10-50); Mean Corpuscular HGB Conc 30.3 g/dl (31.0-37.0); Mean Corpuscular Hemoglobin 23.0 pg (25.0-35.0); Mean Corpuscular Volume 76 fL (80-100); Monocytes # (Auto) 0.8 Thou/mm3 (0.0-0.8); Monocytes % (Auto) 8 % (0-12); Neutrophils # (Auto) 6.7 Thou/mm3 (1.8-7.7); Neutrophils % (Auto) 65 % (37-80); Nucleated Red Blood Cell # 0.00 Thou/mm3 (0.00-0.00); Nucleated Red Blood Cell % 0 /100 WBC (0); Platelet Count 474 Thou/mm3 (140-440); RDW Standard Deviation 50.1 fL (36.4-46.3); Red Blood Count 4.56 Miln/mm3 (4.00-5.20); White Blood Count 10.3 Thou/mm3 (3.6-11.0)
[2025-07-03 11:09] LABS: Alanine Aminotransferase 9 U/L (10-49); Albumin, Serum 4.3 gm/dL (3.5-5.0); Albumin/Globulin Ratio 2.4 (1.2-2.2); Alkaline Phosphatase 90 U/L (46-116); Anion Gap 11 (7-16); Aspartate Amino Transferase 12 U/L (0-34); BUN/Creatinine Ratio 11 Ratio (12-20); Bilirubin,Total 0.2 mg/dL (0.3-1.2); Blood Urea Nitrogen 8 mg/dL (9-23); Calcium 9.2 mg/dL (8.3-10.6); Calcium (Corrected) 9.2 mg/dL (8.5-10.1); Carbon Dioxide 25.3 mMol/L (20.0-31.0); Chloride 108 mMol/L (98-107); Creatine Kinase 27 U/L (34-171); Creatinine (Component) 0.7 mg/dL (0.6-1.3); Estimated Creatinine Clearance 136.5 mL/min (>60); Globulin 1.8 gm/dL (2.3-3.5); Glucose 94 mg/dL (74-106); Osmolality,Calculated 285 (275-295); Potassium 4.0 mMol/L (3.4-5.1); Sodium 144 mMol/L (136-145); Total Protein 6.1 gm/dL (5.7-8.2); eGFR > 60 See Note
--- NOTE | 2025-07-03 15:42 | PC.NURSE ---
Patient threatening to leave AMA. Dr. Martin made aware. Patient refusing cardiac box, oxygen, and medication. Patient also stated she would like to be made DNR. Dr. Martin at bedside explained to patient that at this moment she cannot change her code status due to her suicidal ideation. Patient was explained the importance of taking medications and being compliant with treatment. Patient continue to repeat that she would not take any medication. Dr. Burleson came to see patient at bedside and explained to her the importance of not leaving AMA and being compliant with treatment. Dr. Burleson also made patient aware of not having a hold and she has the right to leave AMA, however, [place] Police department would be notified. Patient then proceeded to say once again I will not take any medication. Patient is in room with sitter at bedside. Tele box is off, oxygen off, and fluids were stopped due to patient refusing treatment.
--- NOTE | 2025-07-03 15:47 | EVENTNT_ITS ---
<Statement entered by Tyrell Braga MD - 07/03/25 16:22> Contacted patient's mother/conservator, Carmela Mcdowell and updated her about her daughter's current hospitalization. Explained to her that she is currently being worked up for seizures/pseudoseizures and also a stroke rule out. CT brain was negative for any acute bleed but we are currently pending the MRI. Patient's mother stated that in the past she has had extensive workup for seizures including EEGs which have all been negative. She also stated that the patient displayed strokelike symptoms in the past but again all workup has been negative. Her mother was also updated that patient stated that she will kill herself if we discharged her from the hospital. We informed the patient that she cannot leave and she asked to leave AGAINST MEDICAL ADVICE, however she she is conserved by her mother and cannot make any medical decisions. Mother was grateful for the update. Plan of care discussed with Attending Dr. Benjy Braga MD PGY 2 Disclaimer: This note was dictated by speech recognition. Minor errors in cupola melter helper may be present due to voice recognition software. Documentation for date of: 07/03/25
--- NOTE | 2025-07-03 15:47 | PD.RESEVENT ---
Documentation for date of: 07/03/25
--- NOTE | 2025-07-03 19:30 | PC.NURSE ---
At time of rounding with day shift nurse, patient was asked if she would like to have her telemonitor leads back on to monitor her heart. Patient verbalized that she does not want it back on. Patient was also asked if she would like to take her medication tonight as she stated to the day shift nurse that she does not want to take her medications. Per patient, stated to both day and night nurse at rounding I do not know . Will ask patient again when medication are due to be given. Charge nurse and tele monitor advertising dispatch clerks supervisor was made aware about patient refusing having the telemonitor leads back on to monitor her heart and oxygen. MD Dr. Gillis was med aware.
--- NOTE | 2025-07-03 21:30 | PC.NURSE ---
Rounded on patient and asked patient if she would like to take her night medication which are scheduled for 2100. Patient replied no to nurse. MD Gillis was contacted and was notified regarding the patient's decision to refuse her night medication. Patient is comfortably laying in bed and is showing no signs of distress. Charge nurse was also made aware. Patient was also asked again if she would like to have the heart monitor lines back on her and her medications, to which the patient replied no. Patient is also able to reposition self and earlier was using her phone.
--- NOTE | 2025-07-03 22:49 | VVPN_ITS ---
Telemedicine visit statement This visit was conducted with the use of interactive audio and video telecommunications system that permits real time communication between the patient and the provider. Patient's verbal consent for virtual visit was obtained on 07/03/25 at 2249. Documentation for date of: 07/03/25 Subjective Subjective Interval history: Patient is in telemetry, no new symptoms/recurrent seizures reported after admission. Virtual exam Vital Signs Temp Pulse Resp BP Pulse Ox O2 Del Method O2 Flow Rate 97.0 F 99 18 97/66 99 Nasal Cannula 2 07/03/25 12:00 07/03/25 19:40 07/03/25 19:40 07/03/25 12:00 07/03/25 12:00 07/03/25 12:00 07/03/25 12:28 Objective Labs 07/03/25 10:28 07/03/25 10:28 Labs: Laboratory Results - last 24 hr 07/03/25 07/03/25 07/03/25 05:00 10: 10:28 WBC 9.8 10.3 RBC 4.12 4.56 Hgb 9.7 L 10.5 L Hct 31.0 L 34.7 L MCV 75 L 76 L MCH 23.5 L 23.0 L MCHC 31.3 30.3 L RDW Std Deviation 49.7 H 50.1 H Plt Count 425 D 474 H D Neut % (Auto) 62 65 Lymph % (Auto) 27 23 [place] % (Auto) 7 8 Eos % (Auto) 3 2 Baso % (Auto) 1 1 Neut # (Auto) 6.1 6.7 Lymph # (Auto) 2.7 2.3 [place] # (Auto) 0.7 0.8 Eos # (Auto) 0.3 0.3 Baso # (Auto) 0.1 0.1 Immature Gran # (Auto) 0.04 H 0.07 H Absolute Nucleated RBC 0.00 0.00 Immature Gran % 0 1 H Nucleated RBC % 0 0 Puncture Site Right Radial ABG pH 7.42 ABG pCO2 40 ABG pO2 97 ABG HCO3 26 ABG O2 Saturation 98 ABG Base Excess 2 FiO2 21 Sodium 143 144 Potassium 4.0 4.0 Chloride 108 H 108 H Carbon Dioxide 23.2 25.3 Anion Gap 12 11 BUN 10 8 L Creatinine 0.7 0.7 Estim Creat Clear Calc 136.5 136.5 eGFR > 60 > 60 BUN/Creatinine Ratio 14 11 L Glucose 92 94 Calculated Osmolality 283 285 Lactic Acid 1.6 Calcium 8.8 9.2 Corrected Calcium 8.9 9.2 Phosphorus 3.9 Magnesium 1.9 Total Bilirubin 0.2 L 0.2 L AST 11 12 ALT 8 L 9 L Alkaline Phosphatase 79 90 Total Creatine Kinase 27 L Total Protein 5.5 L 6.1 Albumin 3.9 D 4.3 Globulin 1.6 L 1.8 L Albumin/Globulin Ratio 2.4 H 2.4 H TSH 0.98 ABG Interpretation ABG results: 07/03/25 10:25 ABG pH 7.42 ABG pCO2 40 ABG pO2 97 ABG HCO3 26 ABG O2 Saturation 98 ABG Base Excess 2 Assessment & Plan Assessment 1) Recurrent seizures: Status: Acute Assessment and plan: Follow-up with MRI brain and EEG to evaluate further. Continue with the Keppra and lacosamide at current doses. Continue to watch her closely for any suicidal or homicidal ideation.
[2025-07-04] VITALS (9 sets, daily range): BP systolic 90–129; BP diastolic 58–82; PULSE 68–115; RESP 18–97; TEMP 35.9–36.8; O2SAT 95–99; BMI 47.0
--- NOTE | 2025-07-04 | XR_ITS ---
Examinations: MRI Brain without intravenous contrast. MRA brain without intravenous contrast. MRA carotids without intravenous contrast 3-D vascular reconstructions Date and time of exam: July 04, 2025, 1226 hours INDICATIONS: Seizure disorder last week Technique: Multiple axial and sagittal images of the brain have been obtained MRA brain carotid images without contrast obtained, including 3-D postprocessing, vascular maximum intensity projection images Findings: Sell[place] is not enlarged. The optic chiasm and infundibular stalk are not remarkable. Prepontine and interpeduncular cisterns are not enlarged. No localized enlargement of the medulla or jasmyne. Fourth ventricle and cerebellar tonsils normal in position. Subacute hemorrhage is not seen. Fourth ventricle is midline. Mass in the cerebellopontine angle region is not evident. 7th and 8th nerve complexes exhibits symmetry. Globes are symmetrical with no retro-orbital mass. Increased white matter signal not seen Diffusion-weighted images demonstrate no focus of restricted diffusion Mass-effect upon the ventricular system is not identified. MRA carotid images degraded by patient motion. MRA brain images no large vessel occlusions Impression: Negative for acute hemorrhage, mass effect or midline shift No acute infarct No MR findings diagnostic for demyelinating disease No cerebral large vessel arterial occlusions
[2025-07-04] MEDS: MIDAZOLAM INJ 1 MG/ML VIAL 2 ML 2 MG IVP ×2 (05:57→12:05)
--- NOTE | 2025-07-04 05:57 | PD.RESEVENT ---
Documentation for date of: 07/04/25 Event Note Event Note: Rapid response was called at 05:52 for seizure. Patient turned to her left side and started jerking in all extremities. Patient seized for a total of 5 minutes; seizure aborted by Versed 2 mg IV x1. Diazepam and Lorazepam were not available IV at this time. Patient is now following commands. Vitals: HR 115, 97% RA, 120/70. BG [address] Gillis and Dr. Brandi Prieto MD PGY1
[2025-07-04 06:51] LABS: Basophils # (Auto) 0.1 Thou/mm3 (0.0-0.2); Basophils % (Auto) 1 % (0-2.5); Eosinophils # (Auto) 0.4 Thou/mm3 (0.0-0.5); Eosinophils % (Auto) 3 % (0-10); Hematocrit 38.1 % (36.0-46.0); Hemoglobin 11.6 g/dL (12.0-16.0); Immature Granulocytes Auto 0.03 Thou/mm3 (0.00-0.00); Lymphocytes # (Auto) 2.6 Thou/mm3 (1.0-4.8); Lymphocytes % (Auto) 24 % (10-50); Mean Corpuscular HGB Conc 30.4 g/dl (31.0-37.0); Mean Corpuscular Hemoglobin 23.2 pg (25.0-35.0); Mean Corpuscular Volume 76 fL (80-100); Monocytes # (Auto) 0.7 Thou/mm3 (0.0-0.8); Monocytes % (Auto) 6 % (0-12); Neutrophils # (Auto) 6.8 Thou/mm3 (1.8-7.7); Neutrophils % (Auto) 65 % (37-80); Nucleated Red Blood Cell # 0.00 Thou/mm3 (0.00-0.00); Nucleated Red Blood Cell % 0 /100 WBC (0); Platelet Count 454 Thou/mm3 (140-440); RDW Standard Deviation 50.0 fL (36.4-46.3); Red Blood Count 4.99 Miln/mm3 (4.00-5.20); White Blood Count 10.5 Thou/mm3 (3.6-11.0)
[2025-07-04 07:05] LABS: Alanine Aminotransferase 10 U/L (10-49); Albumin, Serum 4.6 gm/dL (3.5-5.0); Albumin/Globulin Ratio 2.1 (1.2-2.2); Alkaline Phosphatase 96 U/L (46-116); Anion Gap 11 (7-16); Aspartate Amino Transferase 15 U/L (0-34); BUN/Creatinine Ratio 10 Ratio (12-20); Bilirubin,Total 0.3 mg/dL (0.3-1.2); Blood Urea Nitrogen 7 mg/dL (9-23); Calcium 9.7 mg/dL (8.3-10.6); Calcium (Corrected) 9.7 mg/dL (8.5-10.1); Carbon Dioxide 23.3 mMol/L (20.0-31.0); Chloride 109 mMol/L (98-107); Creatinine (Component) 0.7 mg/dL (0.6-1.3); Estimated Creatinine Clearance 137.8 mL/min (>60); Globulin 2.2 gm/dL (2.3-3.5); Glucose 78 mg/dL (74-106); Magnesium 1.8 mg/dL (1.6-2.6); Osmolality,Calculated 281 (275-295); Phosphorous 3.5 mg/dL (2.4-5.1); Potassium 4.3 mMol/L (3.4-5.1); Sodium 143 mMol/L (136-145); Total Protein 6.8 gm/dL (5.7-8.2); eGFR > 60 See Note
[2025-07-04] MEDS: levETIRAcetam INJ 100 MG/ML VIAL 5ML 1500 MG IVP ×2 (08:12→20:30)
[2025-07-04] MEDS: LACOSAMIDE 50 MG TABLET 100 MG PO ×2 (08:12→20:31)
[2025-07-04] MEDS: FOLIC ACID 1 MG TABLET PO ×2 (08:12→20:29)
[2025-07-04] MEDS: Magnesium Sulfate 4 GM Ivpb 4 GM/50 ML BAG IV (08:13)
[2025-07-04] MEDS: THIAMINE 100 MG TABLET PO ×2 (08:13→20:29)
--- NOTE | 2025-07-04 09:26 | ESPR_ITS ---
<Statement entered by Tyrell Braga MD - 07/04/25 19:52> I saw and examined patient personally and supervised PGY 1 resident, Dr. Liu with formulating a management plan. I agree with the documentation with the exceptions as listed below. MRI brain was negative for any acute infarcts or demyelinating disease. At this point patient is medically cleared and currently pending crisis evaluation. Her case is a complicated one with her being conserved out of [place] and not have any insurance in the state of [place]. Attempted to contact her mother/conservator via telephone today, unsuccessful. Will reattempt tomorrow. Plan of care discussed with Attending Dr. Benjy Braga MD PGY 2 Disclaimer: This note was dictated by speech recognition. Minor errors in medical record specialist may be present due to voice recognition software. Documentation for date of: 07/04/25 Subjective Subjective Interval history: Patient examined bedside, labs reviewed. SAFETY SPECIALIST last night for Patient turned to her left side and started jerking in all extremities. Patient seized for a total of 5 minutes; seizure aborted by Versed 2 mg IV x1 was spoken to this AM states once MRI is in then patient will most likely be medically cleared by neuro; no need to repeat EEG since it will not foreign exchange position clerk. Today, patient is doing well, has no complaints, voices some resentment towards conservator for kicking her out of the house. Still continues to endorse feelings of helplessness as though she would be better off not alive with plan to overdose on pills upon discharge. Exam Vital Signs Temp Pulse Resp BP Pulse Ox O2 Del Method O2 Flow Rate 97.6 F 97 18 120/70 97 Room Air 2 07/04/25 05:52 07/04/25 07:40 07/04/25 07:40 07/04/25 05:52 07/04/25 05:52 07/04/25 04:00 07/04/25 00:00 Narrative Exam GENERAL APPEARANCE: AOx3. NAD, activity normal for age, well developed/ well nourished, no cyanosis, pallor, or diaphoresis. HEENT: Normocephalic atraumatic, no facial trauma, neck is supple. Lids/conjunctiva normal. Mucous membranes moist, nares normal, lips/teeth normal uvula midline without oral pharyngeal erythema, exudate or swelling TMs normal bilaterally. No lymphangitis/lymphedema. CARDIAC: Regular rate and rhythm, S1+S2 heard. No murmurs, rubs, or gallops noted RESPIRATORY: respiratory effort normal, speaks in full sentences, no tripod position, no accessory muscle use. Lungs clear to auscultation without rhonchi, wheezes, rales ABDOMINAL: NBS. Soft, ND/NT. No evidence of fluid wave. No pulsatile masses on exam, rebound tenderness, Coombs sign or pain over Mcburney's point. MUSCLES/EXTREMITIES: No abnormal range of motion, no swelling. DERM: Warm, pink and dry. No rashes, dermatoses, petechiae or lesions. NEUROLOGICAL: Speech is clear and appropriate. Normal level of consciousness. Gait and coordination are normal. 5/5 strength in all extremities. PSYCH: Depressed mood. Affect is superficial and inappropriately unconcerned with content. Judgement/competence is impaired Objective Labs 07/04/25 05:27 07/04/25 05:27 Labs: Laboratory Results - last 24 hr 07/03/25 07/03/25 07/04/25 10:25 10:28 05:27 WBC 10.3 10.5 RBC 4.56 4.99 Hgb 10.5 L 11.6 L Hct 34.7 L 38.1 MCV 76 L 76 L MCH 23.0 L 23.2 L MCHC 30.3 L 30.4 L RDW Std Deviation 50.1 H 50.0 H Plt Count 474 H D 454 H Neut % (Auto) 65 65 Lymph % (Auto) 23 24 [place] % (Auto) 8 6 Eos % (Auto) 2 3 Baso % (Auto) 1 1 Neut # (Auto) 6.7 6.8 Lymph # (Auto) 2.3 2.6 [place] # (Auto) 0.8 0.7 Eos # (Auto) 0.3 0.4 Baso # (Auto) 0.1 0.1 Immature Gran # (Auto) 0.07 H 0.03 H Absolute Nucleated RBC 0.00 0.00 Immature Gran % 1 H 0 Nucleated RBC % 0 0 Puncture Site Right Radial ABG pH 7.42 ABG pCO2 40 ABG pO2 97 ABG HCO3 26 ABG O2 Saturation 98 ABG Base Excess 2 FiO2 21 Sodium 144 143 Potassium 4.0 4.3 Chloride 108 H 109 H Carbon Dioxide 25.3 23.3 Anion Gap 11 11 BUN 8 L 7 L Creatinine 0.7 0.7 Estim Creat Clear Calc 136.5 137.8 eGFR > 60 > 60 BUN/Creatinine Ratio 11 L 10 L Glucose 94 78 Calculated Osmolality 285 281 Lactic Acid 1.6 Calcium 9.2 9.7 Corrected Calcium 9.2 9.7 Phosphorus 3.5 Magnesium 1.8 Total Bilirubin 0.2 L 0.3 AST 12 15 ALT 9 L 10 Alkaline Phosphatase 90 96 Total Creatine Kinase 27 L Total Protein 6.1 6.8 Albumin 4.3 4.6 Globulin 1.8 L 2.2 L Albumin/Globulin Ratio 2.4 H 2.1 ABG Interpretation ABG results: 07/03/25 10:25 ABG pH 7.42 ABG pCO2 40 ABG pO2 97 ABG HCO3 26 ABG O2 Saturation 98 ABG Base Excess 2 Quality Measures Quality Measures none Assessment & Plan Assessment Current Active Medications: Generic Name Dose Route Start Last Admin Trade Name Freq PRN Reason Stop Dose Admin Acetaminophen 650 mg 07/02/25 09:34 07/02/25 09:54 Acetaminophen 325 Mg Tablet PO 08/01/25 09:33 650 mg Q6H PRN Administration Fever >101.5 Apixaban 5 mg 07/01/25 09:00 07/02/25 21:24 Apixaban 2.5 Mg Tablet PO 07/22/25 08:59 Not Given On Hold: 07/03/25 00:52 BID COLLIN Aripiprazole 10 mg 07/04/25 09:00 07/04/25 08:13 Aripiprazole 5 Mg Tablet PO 08/03/25 08:59 Not Given DAILY COLLIN Atorvastatin Calcium 80 mg 07/02/25 21:00 07/03/25 23:16 Atorvastatin Calcium 20 Mg Tablet PO 08/01/25 20:59 Not Given HS COLLIN Folic Acid 1 mg 07/02/25 21:00 07/04/25 08:12 Folic Acid 1 Mg Tablet PO 07/07/25 20:59 1 mg BID COLLIN Administration Sodium Chloride 1,000 mls @ 75 mls/hr 07/03/25 01:34 07/03/25 15:42 Ns IV 08/02/25 01:33 0 mls/hr .[id number] COLLIN Infusion Magnesium Sulfate 4 gm in 50 mls @ 12.5 mls/hr 07/04/25 07:58 07/04/25 08:13 Magnesium Sulfate Ivpb IV 07/04/25 11:57 12.5 mls/hr X1 ONE Administration Lacosamide 100 mg 07/01/25 09:00 07/04/25 08:12 Lacosamide 50 Mg Tablet PO 07/31/25 08:59 100 mg BID COLLIN Administration Levetiracetam 1,500 mg 07/02/25 21:00 07/04/25 08:12 Levetiracetam Inj 100 Mg/Ml Vial 5ml IVP 08/01/25 20:59 1,500 mg Q12HR COLLIN Administration Levothyroxine Sodium 25 mcg 07/04/25 06:00 07/04/25 08:37 Levothyroxine Sodium 25 Mcg Tablet PO 08/03/25 05:59 Not Given ACBR COLLIN Lorazepam 1 mg 07/02/25 09:37 07/02/25 09:54 Lorazepam 0.5 Mg Tablet PO 07/07/25 09:36 1 mg Q4HR PRN Administration CIWA SCORE 7-11 Lorazepam 0.5 mg 07/02/25 09:37 07/02/25 16:28 Lorazepam 0.5 Mg Tablet PO 07/07/25 09:36 0.5 mg Q4HR PRN Administration CIWA Score 2-6 Lorazepam 2 mg 07/02/25 09:37 Lorazepam 0.5 Mg Tablet PO 07/07/25 09:36 Q4HR PRN CIWA SCORE 12-15 Ondansetron HCl 4 mg 07/02/25 09:34 07/02/25 10:07 Ondansetron Inj 2 Mg/Ml Inj 2 Ml IVP 08/01/25 09:33 4 mg Q6H PRN Administration NAUSEA OR VOMITING Protocol Thiamine HCl 100 mg 07/02/25 21:00 07/04/25 08:13 Thiamine 100 Mg Tablet PO 07/07/25 20:59 100 mg BID COLLIN Administration Plan Patient is a 25-year-old female who recently relocated from [place] days prior with a medical history of schizoaffective disorder, PTSD, DVT/PEs, Hypothyroidism, seizure disorder, and previous suicide attempt presents to [facility] emergency department with chief complaint of seizures. A SAFETY SPECIALIST was called for seizure activity today, most likely due to pseudoseizures. Another SAFETY SPECIALIST was called 07/04 by night team for another episode of pseudo seizures. Dr. Hughes ok with medically clearing patient once MRI comes in, no need to repeat EEG since it will not change medical management. S martinke ruled out. Patient is medically cleared. Pending psych placement for SI with plan, pending insurance authorization. #Stroke Ruled Out MRI was negative for acute infarct and no findings of demyelinating disease. #Neuropsychiatric agitation/psuedo seizures #Seizure disorder #Breakthrough seizures - Patient has known history of PNES and follows a neurologist in [place]. She reports her antiepileptic regimen is Keppra 1500 mg p.o. twice daily and Vimpat 100 mg p.o. twice daily. 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 - Suspect etiology for breakthrough seizures is either medication noncompliance versus alcohol withdrawal versus unknown - Conservator/adoptive mother confirms patient has long history of pseudo seizures and her work up and EEGs are always negative. - CT head without contrast relatively within normal limits and CT cervical spine WNL - Plan: Start seizure precautions. Resume home antiepileptic regimen of Keppra 1500 mg twice daily and Vimpat. Consult in-house neurology, recommendations appreciated. -FUP EEG: Abnormal. Localized spike and wave activity was noted in both temporal areas consistent with seizures. # Suicidal ideation # Schizoaffective disorder # PTSD - Patient reports she had a suicide attempt approximately 1 week ago in [place] where she took Tylenol, gabapentin, and Eliquis - Plan: Patient is currently on a psychiatric hold. During my evaluation patient is still endorsing suicidal ideation but denies a plan. Recommend patient remains on a hold. Bedside sitter and suicide precautions. Continue home Abilify. Patient will likely need transfer to psychiatric facility once medically cleared. We will give Versed if seizure-like activity returns. #Alcohol withdrawal Patient drinks 10+ beers a day. She denies being hospitalized for alcohol withdrawal in the past. - Plan: Counseled on alcohol cessation. Symptoms relatively mild to moderate at this time although patient did receive Versed prior to my evaluation. Start CIWA protocol. -Thiamine 100mg PO BID # History of pulmonary embolism - Per patient she has had approximately 10 blood clots in the past. She reports she has even had a blood clot on Eliquis. - Plan: Patient follows up with a delivery driver/customer service in [place]. Unclear if she has received a hypercoagulable panel in the past. Nonetheless we will resume home Eliquis and patient should follow-up with her delivery driver/customer service as it is abnormal to have a recurrent thrombosis on a new oral anticoagulant. # Hypothyroidism - Plan: continue home levothyroxine 25mcg PO DVT prophylaxis: Eliquis GI Proph: None indicated Diet: Regular Lines: PIV Code Status: Full code Dispo: Admit to the hospital for breakthrough seizures and further titration of antiepileptic regimen and neurology recommendations. Patient is actively endorsing suicidal ideations and remains on a psychiatric hold and will likely need transfer once medically cleared. Patient seen and reviewed with attending Dr. Burleson and supervising resident Dr. Braga. Note written by Dieudonne Liu MD PGY-1 Attending Provider Attestation/Addendum I have examined the patient, reviewed labs and imaging findings, discussed the case with the resident(s), and reviewed entered orders. I agree with the plan of care as outlined in this note, with these additional summaries/recommendations: Patient seen at bedside. Patient had rapid response again this morning for seizure-like activity. Likely pseudoseizure. In-house neurology following. EEG did show localized spike and wave activity. Neurology recommends continuing Keppra and Vimpat on discharge. MRI brain negative. Continue Eliquis for history of pulmonary embolism. Continue levothyroxine for hypothyroidism. Patient is medically cleared for discharge today although still endorsing suicidal ideations with a plan. Continue bedside sitter and suicide precautions. Patient is conserved out of [place] and has a lengthy history of suicide attempts. Pending crisis evaluation and likely hold for psychiatric transfer. Patient updated on the plan. Please see residents note for additional details and management. Dr. Benjy MD
--- NOTE | 2025-07-04 09:57 | PC.CC ---
0858-ASW contacted residents Dr. Braga requesting an update on the pt. Per Dr. Braga, pt is pending a brain MRI. When the results are in and pt is medically cleared, residents will call ASW to complete the MH assessment.
[2025-07-04] MEDS: ACETAMINOPHEN 325 MG TABLET 650 MG PO (11:10)
[2025-07-04] MEDS: SODIUM CHLORIDE 0.9% 1000 ML 1,000 ML 75 ML IV (11:14)
--- NOTE | 2025-07-04 13:39 | PC.SS ---
SS follow up note; Patient is pending an MRI, once medically cleared patient will need to be re-evaluated to determine if she will be on a 5150 hold.
--- NOTE | 2025-07-04 14:27 | PC.CC ---
0230-ASW received a call from JULI Hobbs stating the pt has been medically cleared. ASW contacted attending Dr. Braga and Dr. Shelton to confirm the medical clearance and Dr. Walters. ASW will assess pt and provide an update to Connie Dumas.
--- NOTE | 2025-07-04 14:41 | PC.SS ---
Patient has been medically cleared for mental health evaluation. PRODUCTION CONTROL PEGBOARD CLERK notified ED coordinator of patient's medical clearance.
--- NOTE | 2025-07-04 15:58 | PC.CC ---
1527-Pt is on a 2nd Hold for DTS. ASW has placed the hold in the pts chart and is in the park binder for [employer] located in the social service office in the ED. Pt is aware of the 2nd hold and was assessed by ASW, approved by Connie Dumas LCSW. Pt continues to disclose SI with plan. Pt is alert x3 and is aware of her rights. ASW will meet with pt in the AM to discuss the Hearing details.
[2025-07-04] MEDS: KETOROLAC INJ 30 MG/ML VIAL 15 MG IVP (17:51)
[2025-07-04] MEDS: ATORVASTATIN CALCIUM 20 MG TABLET 80 MG PO (20:29)
[2025-07-05] VITALS (9 sets, daily range): BP systolic 98–130; BP diastolic 60–87; PULSE 79–94; RESP 14–96; TEMP 36.1–36.4; O2SAT 94–96; BMI 47.2; BMI 47.5
[2025-07-05 05:51] LABS: Basophils # (Auto) 0.1 Thou/mm3 (0.0-0.2); Basophils % (Auto) 1 % (0-2.5); Eosinophils # (Auto) 0.4 Thou/mm3 (0.0-0.5); Eosinophils % (Auto) 3 % (0-10); Hematocrit 34.4 % (36.0-46.0); Hemoglobin 10.5 g/dL (12.0-16.0); Immature Granulocytes Auto 0.04 Thou/mm3 (0.00-0.00); Lymphocytes # (Auto) 2.2 Thou/mm3 (1.0-4.8); Lymphocytes % (Auto) 17 % (10-50); Mean Corpuscular HGB Conc 30.5 g/dl (31.0-37.0); Mean Corpuscular Hemoglobin 23.3 pg (25.0-35.0); Mean Corpuscular Volume 76 fL (80-100); Monocytes # (Auto) 0.8 Thou/mm3 (0.0-0.8); Monocytes % (Auto) 6 % (0-12); Neutrophils # (Auto) 9.2 Thou/mm3 (1.8-7.7); Neutrophils % (Auto) 73 % (37-80); Nucleated Red Blood Cell # 0.00 Thou/mm3 (0.00-0.00); Nucleated Red Blood Cell % 0 /100 WBC (0); Platelet Count 481 Thou/mm3 (140-440); RDW Standard Deviation 50.4 fL (36.4-46.3); Red Blood Count 4.51 Miln/mm3 (4.00-5.20); White Blood Count 12.6 Thou/mm3 (3.6-11.0)
[2025-07-05] MEDS: LEVOTHYROXINE SODIUM 25 MCG TABLET PO (05:56)
[2025-07-05 06:12] LABS: Alanine Aminotransferase 9 U/L (10-49); Albumin, Serum 4.4 gm/dL (3.5-5.0); Albumin/Globulin Ratio 2.1 (1.2-2.2); Alkaline Phosphatase 95 U/L (46-116); Anion Gap 10 (7-16); Aspartate Amino Transferase 11 U/L (0-34); BUN/Creatinine Ratio 10 Ratio (12-20); Bilirubin,Total 0.2 mg/dL (0.3-1.2); Blood Urea Nitrogen 7 mg/dL (9-23); Calcium 9.3 mg/dL (8.3-10.6); Calcium (Corrected) 9.3 mg/dL (8.5-10.1); Carbon Dioxide 22.3 mMol/L (20.0-31.0); Chloride 110 mMol/L (98-107); Creatinine (Component) 0.7 mg/dL (0.6-1.3); Estimated Creatinine Clearance 138.1 mL/min (>60); Globulin 2.1 gm/dL (2.3-3.5); Glucose 85 mg/dL (74-106); Magnesium 2.2 mg/dL (1.6-2.6); Osmolality,Calculated 280 (275-295); Phosphorous 3.1 mg/dL (2.4-5.1); Potassium 4.1 mMol/L (3.4-5.1); Sodium 142 mMol/L (136-145); Total Protein 6.5 gm/dL (5.7-8.2); eGFR > 60 See Note
[2025-07-05] MEDS: ACETAMINOPHEN 325 MG TABLET 650 MG PO ×2 (07:49→14:51)
[2025-07-05] MEDS: LACOSAMIDE 50 MG TABLET 100 MG PO ×2 (08:02→21:31)
[2025-07-05] MEDS: THIAMINE 100 MG TABLET PO ×2 (08:02→21:30)
[2025-07-05] MEDS: FOLIC ACID 1 MG TABLET PO ×2 (08:02→21:31)
[2025-07-05] MEDS: levETIRAcetam INJ 100 MG/ML VIAL 5ML 1500 MG IVP ×2 (08:02→21:28)
[2025-07-05] MEDS: SODIUM CHLORIDE 0.9% 1000 ML 1,000 ML 75 ML IV ×2 (08:03→21:44)
--- NOTE | 2025-07-05 09:46 | PC.SS ---
Addendum entered by Monica York 07/05/25 12:41: SS follow up note; SS followed up with the following [facility] facilities: [facility]- In Queue [facility]- Requested to refax, SS refaxed referral-In Queue [facility]- No Beds [facility]-In Queue [facility]-In Queue [facility]- In Queue [facility]- Declined due to out of state, and patient being conserved [facility]- No beds at the time [facility]- No beds available [facility], [facility]-Will not accept due to conservatorship [facility]-In review [facility]-No beds available today [facility]- Left Voicemail [facility], discharges today and will review once beds are open [facility]- exceed medical acuity-Declined due to seizures [facility]- No beds available [facility]- refaxed X2 will review [facility]- In queue [facility]- In Queue [facility] ? [facility]-No answer, left [facility] ? - In Queue [facility]- call back intake not available Original Note: SS follow up note; SS sent Packet to all LPS facilities.
--- NOTE | 2025-07-05 13:19 | PC.SS ---
SS received a call that pt had questions in regards to LPS placement and insurance barriers. SS met with pt at bedside. Per pt she does not understand why we are holding her here if her insurance does not cover around here, and why cant we just let her go. SS explained unfortunately that is not the process but once SS gets updated information on LPS placement or insurance issues are resolved SS or ED CC will come and speak to her.
--- NOTE | 2025-07-05 13:47 | ESPR_ITS ---
Documentation for date of: 07/05/25 Subjective Subjective Interval history: Patient examined bedside, labs reviewed. patient is medically cleared, just pending placement at psych facility. Conservator was called and agrees with plan. Exam Vital Signs Temp Pulse Resp BP Pulse Ox O2 Del Method O2 Flow Rate 97.6 F 89 16 109/87 H 96 Room Air 2 07/05/25 11:32 07/05/25 11:32 07/05/25 11:32 07/05/25 11:32 07/05/25 11:32 07/05/25 11:32 07/04/25 00:00 Narrative Exam GENERAL APPEARANCE: AOx3. NAD, activity normal for age, well developed/ well nourished, no cyanosis, pallor, or diaphoresis. HEENT: Normocephalic atraumatic, no facial trauma, neck is supple. Lids/conjunctiva normal. Mucous membranes moist, nares normal, lips/teeth normal uvula midline without oral pharyngeal erythema, exudate or swelling TMs normal bilaterally. No lymphangitis/lymphedema. CARDIAC: Regular rate and rhythm, S1+S2 heard. No murmurs, rubs, or gallops noted RESPIRATORY: respiratory effort normal, speaks in full sentences, no tripod position, no accessory muscle use. Lungs clear to auscultation without rhonchi, wheezes, rales ABDOMINAL: NBS. Soft, ND/NT. No evidence of fluid wave. No pulsatile masses on exam, rebound tenderness, Coombs sign or pain over Mcburney's point. MUSCLES/EXTREMITIES: No abnormal range of motion, no swelling. DERM: Warm, pink and dry. No rashes, dermatoses, petechiae or lesions. NEUROLOGICAL: Speech is clear and appropriate. Normal level of consciousness. Gait and coordination are normal. 5/5 strength in all extremities. PSYCH: Depressed mood. Affect is superficial and inappropriately unconcerned with content. Judgement/competence is impaired Objective Labs 07/05/25 05:20 07/05/25 05:20 Labs: Laboratory Results - last 24 hr 07/05/25 05:20 WBC 12.6 H RBC 4.51 Hgb 10.5 L Hct 34.4 L MCV 76 L MCH 23.3 L MCHC 30.5 L RDW Std Deviation 50.4 H Plt Count 481 H Neut % (Auto) 73 Lymph % (Auto) 17 Graham % (Auto) 6 Eos % (Auto) 3 Baso % (Auto) 1 Neut # (Auto) 9.2 H Lymph # (Auto) 2.2 Graham # (Auto) 0.8 Eos # (Auto) 0.4 Baso # (Auto) 0.1 Immature Gran # (Auto) 0.04 H Absolute Nucleated RBC 0.00 Immature Gran % 0 Nucleated RBC % 0 Sodium 142 Potassium 4.1 Chloride 110 H Carbon Dioxide 22.3 Anion Gap 10 BUN 7 L Creatinine 0.7 Estim Creat Clear Calc 138.1 eGFR > 60 BUN/Creatinine Ratio 10 L Glucose 85 Calculated Osmolality 280 Calcium 9.3 Corrected Calcium 9.3 Phosphorus 3.1 Magnesium 2.2 Total Bilirubin 0.2 L AST 11 ALT 9 L Alkaline Phosphatase 95 Total Protein 6.5 Albumin 4.4 Globulin 2.1 L Albumin/Globulin Ratio 2.1 ABG Interpretation ABG results: 07/03/25 10:25 ABG pH 7.42 ABG pCO2 40 ABG pO2 97 ABG HCO3 26 ABG O2 Saturation 98 ABG Base Excess 2 Quality Measures Quality Measures none Assessment & Plan Assessment Current Active Medications: Generic Name Dose Route Start Last Admin Trade Name Freq PRN Reason Stop Dose Admin Acetaminophen 650 mg 07/05/25 07:41 07/05/25 07:49 Acetaminophen 325 Mg Tablet PO 08/01/25 09:33 650 mg Q6H PRN Administration Fever >100.4 or pain 1-3 Apixaban 5 mg 07/01/25 09:00 07/02/25 21:24 Apixaban 2.5 Mg Tablet PO 07/22/25 08:59 Not Given On Hold: 07/03/25 00:52 BID COLLIN Aripiprazole 10 mg 07/04/25 09:00 07/05/25 08:38 Aripiprazole 5 Mg Tablet PO 08/03/25 08:59 Not Given DAILY COLLIN Atorvastatin Calcium 80 mg 07/02/25 21:00 07/04/25 20:29 Atorvastatin Calcium 20 Mg Tablet PO 08/01/25 20:59 80 mg HS COLLIN Administration Folic Acid 1 mg 07/02/25 21:00 07/05/25 08:02 Folic Acid 1 Mg Tablet PO 07/07/25 20:59 1 mg BID COLLIN Administration Sodium Chloride 1,000 mls @ 75 mls/hr 07/03/25 01:34 07/05/25 08:03 Ns IV 08/02/25 01:33 75 mls/hr .[id number] COLLIN Administration Lacosamide 100 mg 07/01/25 09:00 07/05/25 08:02 Lacosamide 50 Mg Tablet PO 07/31/25 08:59 100 mg BID COLLIN Administration Levetiracetam 1,500 mg 07/02/25 21:00 07/05/25 08:02 Levetiracetam Inj 100 Mg/Ml Vial 5ml IVP 08/01/25 20:59 1,500 mg Q12HR COLLIN Administration Levothyroxine Sodium 25 mcg 07/04/25 06:00 07/05/25 05:56 Levothyroxine Sodium 25 Mcg Tablet PO 08/03/25 05:59 25 mcg ACBR COLLIN Administration Lorazepam 1 mg 07/02/25 09:37 07/05/25 08:03 Lorazepam 0.5 Mg Tablet PO 07/07/25 09:36 1 mg Q4HR PRN Administration CIWA SCORE 7-11 Lorazepam 0.5 mg 07/02/25 09:37 07/02/25 16:28 Lorazepam 0.5 Mg Tablet PO 07/07/25 09:36 0.5 mg Q4HR PRN Administration CIWA Score 2-6 Lorazepam 2 mg 07/02/25 09:37 Lorazepam 0.5 Mg Tablet PO 07/07/25 09:36 Q4HR PRN CIWA SCORE 12-15 Ondansetron HCl 4 mg 07/02/25 09:34 07/02/25 10:07 Ondansetron Inj 2 Mg/Ml Inj 2 Ml IVP 08/01/25 09:33 4 mg Q6H PRN Administration NAUSEA OR VOMITING Protocol Polyethylene Glycol 17 gm 07/05/25 20:00 Polyethylene Glycol 17 Gm Packet PO 08/04/25 19:59 QDAY COLLIN Thiamine HCl 100 mg 07/02/25 21:00 07/05/25 08:02 Thiamine 100 Mg Tablet PO 07/07/25 20:59 100 mg BID COLLIN Administration Plan Patient is a 25-year-old female who recently relocated from [place] days prior with a medical history of schizoaffective disorder, PTSD, DVT/PEs, Hypothyroidism, seizure disorder, and previous suicide attempt presents to [facility] emergency department with chief complaint of seizures. A RESEARCH GEOLOGIST was called for seizure activity today, most likely due to pseudoseizures. Another RESEARCH GEOLOGIST was called 07/04 by night team for another episode of pseudo seizures. Dr. Hughes ok with medically clearing patient once MRI comes in, no need to repeat EEG since it will not change medical management. S reena ruled out. Patient is medically cleared. Pending psych placement for SI with plan, pending insurance authorization. #Stroke Ruled Out MRI was negative for acute infarct and no findings of demyelinating disease. #Neuropsychiatric agitation/psuedo seizures #Seizure disorder #Breakthrough seizures - Patient has known history of PNES and follows a neurologist in [place]. She reports her antiepileptic regimen is Keppra 1500 mg p.o. twice daily and Vimpat 100 mg p.o. twice daily. 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 - Suspect etiology for breakthrough seizures is either medication noncompliance versus alcohol withdrawal versus unknown - Conservator/adoptive mother confirms patient has long history of pseudo seizures and her work up and EEGs are always negative. - CT head without contrast relatively within normal limits and CT cervical spine WNL - Plan: Start seizure precautions. Resume home antiepileptic regimen of Keppra 1500 mg twice daily and Vimpat. Consult in-house neurology, recommendations appreciated. -FUP EEG: Abnormal. Localized spike and wave activity was noted in both temporal areas consistent with seizures. # Suicidal ideation # Schizoaffective disorder # PTSD - Patient reports she had a suicide attempt approximately 1 week ago in [place] where she took Tylenol, gabapentin, and Eliquis - Plan: Patient is currently on a psychiatric hold. During my evaluation patient is still endorsing suicidal ideation but denies a plan. Recommend patient remains on a hold. Bedside sitter and suicide precautions. Continue home Abilify. Patient will likely need transfer to psychiatric facility once medically cleared. We will give Versed if seizure-like activity returns. #Alcohol withdrawal Patient drinks 10+ beers a day. She denies being hospitalized for alcohol withdrawal in the past. - Plan: Counseled on alcohol cessation. Symptoms relatively mild to moderate at this time although patient did receive Versed prior to my evaluation. Start CIWA protocol. -Thiamine 100mg PO BID # History of pulmonary embolism - Per patient she has had approximately 10 blood clots in the past. She reports she has even had a blood clot on Eliquis. - Plan: Patient follows up with a head char filter tank tender in [place]. Unclear if she has received a hypercoagulable panel in the past. Nonetheless we will resume home Eliquis and patient should follow-up with her head char filter tank tender as it is abnormal to have a recurrent thrombosis on a new oral anticoagulant. # Hypothyroidism - Plan: continue home levothyroxine 25mcg PO DVT prophylaxis: Eliquis GI Proph: None indicated Diet: Regular Lines: PIV Code Status: Full code Dispo: Admit to the hospital for breakthrough seizures and further titration of antiepileptic regimen and neurology recommendations. Patient is actively endorsing suicidal ideations and remains on a psychiatric hold and will likely need transfer once medically cleared. Patient seen and reviewed with attending Dr. Helms and supervising resident Dr. Braga. Note written by Dieudonne Liu MD PGY-1 Attending Provider Attestation/Addendum I have discussed and was present for the essential components of the history, physical examination, diagnosis, and treatment plan with the resident. I agree with the patient's care as documented by the resident and amended herein by me. Puneet Helms, DO. Although this document has been carefully reviewed, there may still be some phonetic and other typographical errors. These errors are purely grammatical due to imperfections in the software program and should not be construed in any way to compromise the substance of the patient's medical care during this visit. Patient seen and evaluated this AM. No acute events overnight, patient was calm this morning looking for placement herself. Social work is presently looking for psychiatric facilities as to transfer the patient however has not been successful thus far.. Patient was calm today with a sitter will continue to monitor closely.
[2025-07-05] MEDS: ATORVASTATIN CALCIUM 20 MG TABLET 80 MG PO (21:30)
[2025-07-06] VITALS (9 sets, daily range): BP systolic 91–144; BP diastolic 55–86; PULSE 53–116; RESP 11–99; TEMP 35.9–36.4; O2SAT 93–100; BMI 47.6
--- NOTE | 2025-07-06 01:45 | PC.NURSE ---
pt assisted to bathroom,urinated and went back to bed without incident. pt stated she has a headache,feels hot and wants fan on. RN explained no fan but will cool down the room and removed extra blankets on pt, brought in tylenol and ativan po but pt refused to take meds. emotional support provided, continue 1:1 sitter at bedside.
[2025-07-06] MEDS: LEVOTHYROXINE SODIUM 25 MCG TABLET PO (05:18)
[2025-07-06 07:05] LABS: Magnesium 1.8 mg/dL (1.6-2.6); Phosphorous 3.4 mg/dL (2.4-5.1)
[2025-07-06] MEDS: levETIRAcetam INJ 100 MG/ML VIAL 5ML 1500 MG IVP ×2 (08:12→21:22)
[2025-07-06] MEDS: FOLIC ACID 1 MG TABLET PO ×2 (08:13→21:22)
[2025-07-06] MEDS: THIAMINE 100 MG TABLET PO ×2 (08:13→21:28)
[2025-07-06] MEDS: LACOSAMIDE 50 MG TABLET 100 MG PO ×2 (08:13→21:22)
--- NOTE | 2025-07-06 08:26 | PC.PT ---
Patient will be dc from PT services secondary to patient is I with transfers and ambulation without AD.
[2025-07-06] MEDS: SODIUM CHLORIDE 0.9% 1000 ML 1,000 ML 75 ML IV (09:56)
--- NOTE | 2025-07-06 11:08 | PC.CC ---
Addendum entered by Emily Cesar 07/06/25 13:38: [id number]-ASW contacted pts mother Carmela [phone] as she had called ASW on 07/05/25 but property underwriter was absent. As per Carmela, she stated she spoke with a rn social services on 07/05/25 regarding questions about the conservatorship and wanted to reiterate that she and she alone is the conservator/guardian. ASW explained that once the pts hold expires, then pt will be reassessed again. ASW asked Carmela that if the pts hold is rescinded, would she be willing to p/u the pt and she said, No, I will not be picking her up and she can d/c to a long term. Carmela went on to say that she has helped pt many times and still gets into these messes. Addendum entered by Emily Cesar 07/06/25 13:04: As to the claim that the packet on 07/05/25 had not been received by [facility] facilities, ASW reassured the [facility] facilities that the packet was submitted on [facility] on 07/05/25 at 9:35am. Addendum entered by Emily Cesar 07/06/25 12:06: [id number]-ASW re-submitted the packet to [facility], per [facility] facilities request, as packet was originally too big. Addendum entered by Emily Cesar 07/06/25 12:05: It should be noted that the packet that was sent on 07/05/25 was not received by any of the [facility] facilities, as it was reported by each intake. The sent packet was 97 pages and the [facility] facilities are requesting not to send a packet that big. ASW condensed the packet, as per [facility] facilities request, to the most recent note/consultation and 5150 Hold, along with exams and labs. Original Note: 1108-ASW submitted the pts packet to the following facilities. Updates: [place]-declined due to being medically complicated. [facility]-Not able to work on the packet but has pending D/c today. will call if they are interested. [facility]-no female beds available [facility]-declined due to being an out of state conserved. [facility] stated this is the barrier. [facility]-Intake stated not received. ASW emailed the packet to their admissions at: [email or web address] or [phone]
--- NOTE | 2025-07-06 15:00 | PC.CM ---
4678-DES Portillo, FIELD INTERVIEWER of Quality,, Brendon Summers, Stencil Machine Operator of Patient Safety and Risk and this ALLEY CLEANER contacted [facility], Silverio GUERRA ([phone]); team spoke with Stencil Machine Operator, Awa who reported [place] does not have LPS conservatorship in place and the current Article 81 of the Mental Hygiene Law is intended for the management of person?s personal and/or property needs. [id number]-DES spoke with Monica, Stencil Machine Operator of Public Guardianship. ALLEY CLEANER consulted with operations research manager regarding patient?s situation. Stencil Machine Operator indicated that out of state conservatorships are voided at state line. She confirms that not every state has LPS conservatorship in place.
--- NOTE | 2025-07-06 15:07 | PC.SS ---
ARCADE GAME TECHNICIAN conducted bedside contact with the patient. Patient in possession of 1:1 sitter. Patient confirms appetite intact and no disturbances with sleep pattern. No behavioral concerns reported by 1:1 sitter. Patient inquired if she will be discharged to streets if unable to secure discharge to psychiatric facility. ARCADE GAME TECHNICIAN informed patient that social media job titles is actively attempting placement search. Due to patient verbalizing intent of self harm discharge to streets would be deemed unsafe.
--- NOTE | 2025-07-06 15:47 | ESPR_ITS ---
Documentation for date of: 07/06/25 Subjective Subjective Interval history: Patient was seen and examined at bedside this AM. No acute exents overnight. Patient tolerating diet, adequate urine output and mentation is at baseline. Patient currently has no complaints. Denies auditory/visual hallucinations. Still experiences suicidal ideations. Currently on psychiatric hold and pending transfer to psychiatric facility for evaluation. For entire hospitalization patient has been intermittently refusing her antiseizure medication and antipsychotics. Exam Vital Signs Temp Pulse Resp BP Pulse Ox O2 Del Method O2 Flow Rate 97.0 F 70 15 114/65 100 Room Air 2 07/06/25 12:00 07/06/25 12:00 07/06/25 12:00 07/06/25 12:00 07/06/25 12:00 07/06/25 12:00 07/04/25 00:00 Narrative Exam GENERAL APPEARANCE: AOx3. NAD, activity normal for age, well developed/ well nourished, no cyanosis, pallor, or diaphoresis. HEENT: Normocephalic atraumatic, no facial trauma, neck is supple. Lids/conjunctiva normal. Mucous membranes moist, nares normal, lips/teeth normal uvula midline without oral pharyngeal erythema, exudate or swelling TMs normal bilaterally. No lymphangitis/lymphedema. CARDIAC: Regular rate and rhythm, S1+S2 heard. No murmurs, rubs, or gallops noted RESPIRATORY: respiratory effort normal, speaks in full sentences, no tripod position, no accessory muscle use. Lungs clear to auscultation without rhonchi, wheezes, rales ABDOMINAL: NBS. Soft, ND/NT. No evidence of fluid wave. No pulsatile masses on exam, rebound tenderness, Coombs sign or pain over Mcburney's point. MUSCLES/EXTREMITIES: No abnormal range of motion, no swelling. DERM: Warm, pink and dry. No rashes, dermatoses, petechiae or lesions. NEUROLOGICAL: Speech is clear and appropriate. Normal level of consciousness. Gait and coordination are normal. 5/5 strength in all extremities. PSYCH: Depressed mood. Affect is superficial and inappropriately unconcerned with content. Judgement/competence is impaired Objective Labs 07/06/25 18:15 07/06/25 18:15 Labs: Laboratory Results - last 24 hr 07/06/25 06:11 Phosphorus 3.4 Magnesium 1.8 ABG Interpretation ABG results: 07/03/25 10:25 ABG pH 7.42 ABG pCO2 40 ABG pO2 97 ABG HCO3 26 ABG O2 Saturation 98 ABG Base Excess 2 Quality Measures Quality Measures none Assessment & Plan Assessment Current Active Medications: Generic Name Dose Route Start Last Admin Trade Name Freq PRN Reason Stop Dose Admin Acetaminophen 650 mg 07/05/25 07:41 07/05/25 14:51 Acetaminophen 325 Mg Tablet PO 08/01/25 09:33 650 mg Q6H PRN Administration Fever >100.4 or pain 1-3 Apixaban 5 mg 07/01/25 09:00 07/02/25 21:24 Apixaban 2.5 Mg Tablet PO 07/22/25 08:59 Not Given On Hold: 07/03/25 00:52 BID COLLIN Aripiprazole 10 mg 07/04/25 09:00 07/06/25 08:13 Aripiprazole 5 Mg Tablet PO 08/03/25 08:59 Not Given DAILY COLLIN Atorvastatin Calcium 80 mg 07/02/25 21:00 07/05/25 21:30 Atorvastatin Calcium 20 Mg Tablet PO 08/01/25 20:59 80 mg HS COLLIN Administration Folic Acid 1 mg 07/02/25 21:00 07/06/25 08:13 Folic Acid 1 Mg Tablet PO 07/07/25 20:59 1 mg BID COLLIN Administration Sodium Chloride 1,000 mls @ 75 mls/hr 07/03/25 01:34 07/06/25 09:56 Ns IV 08/02/25 01:33 75 mls/hr .[id number] COLLIN Administration Lacosamide 100 mg 07/01/25 09:00 07/06/25 08:13 Lacosamide 50 Mg Tablet PO 07/31/25 08:59 100 mg BID COLLIN Administration Levetiracetam 1,500 mg 07/02/25 21:00 07/06/25 08:12 Levetiracetam Inj 100 Mg/Ml Vial 5ml IVP 08/01/25 20:59 1,500 mg Q12HR COLLIN Administration Levothyroxine Sodium 25 mcg 07/04/25 06:00 07/06/25 05:18 Levothyroxine Sodium 25 Mcg Tablet PO 08/03/25 05:59 25 mcg ACBR COLLIN Administration Lorazepam 1 mg 07/02/25 09:37 07/05/25 08:03 Lorazepam 0.5 Mg Tablet PO 07/07/25 09:36 1 mg Q4HR PRN Administration CIWA SCORE 7-11 Lorazepam 0.5 mg 07/02/25 09:37 07/06/25 08:13 Lorazepam 0.5 Mg Tablet PO 07/07/25 09:36 0.5 mg Q4HR PRN Administration CIWA Score 2-6 Lorazepam 2 mg 07/02/25 09:37 Lorazepam 0.5 Mg Tablet PO 07/07/25 09:36 Q4HR PRN CIWA SCORE 12-15 Ondansetron HCl 4 mg 07/02/25 09:34 07/02/25 10:07 Ondansetron Inj 2 Mg/Ml Inj 2 Ml IVP 08/01/25 09:33 4 mg Q6H PRN Administration NAUSEA OR VOMITING Protocol Polyethylene Glycol 17 gm 07/05/25 20:00 07/06/25 08:14 Polyethylene Glycol 17 Gm Packet PO 08/04/25 19:59 Not Given QDAY COLLIN Thiamine HCl 100 mg 07/02/25 21:00 07/06/25 08:13 Thiamine 100 Mg Tablet PO 07/07/25 20:59 100 mg BID COLLIN Administration Plan Patient is a 25-year-old female who recently relocated from [place] days prior with a medical history of schizoaffective disorder, PTSD, DVT/PEs, Hypothyroidism, seizure disorder, and previous suicide attempt presents to [facility] emergency department with chief complaint of seizures. A TRAILER ASSEMBLER was called for seizure activity today, most likely due to pseudoseizures. Another TRAILER ASSEMBLER was called 07/04 by night team for another episode of pseudo seizures. Dr. Hughes ok with medically clearing patient once MRI comes in, no need to repeat EEG since it will not change medical management. S troke ruled out. Patient is medically cleared. Pending psych placement for SI with plan, pending insurance authorization. #Stroke Ruled Out x 3 MRI was negative for acute infarct and no findings of demyelinating disease. 07/06 CT brain negative for any acute infarct. #Migraine Patient endorses generalized 9/10 headache. Plan: ? Toradol 30 Mg IV x 1 #Neuropsychiatric agitation/psuedo seizures #Seizure disorder #Breakthrough seizures - Patient has known history of PNES and follows a neurologist in [place]. She reports her antiepileptic regimen is Keppra 1500 mg p.o. twice daily and Vimpat 100 mg p.o. twice daily. 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 - Suspect etiology for breakthrough seizures is either medication noncompliance versus alcohol withdrawal versus unknown - Conservator/adoptive mother confirms patient has long history of pseudo seizures and her work up and EEGs are always negative. - CT head without contrast relatively within normal limits and CT cervical spine WNL - Plan: Start seizure precautions. Continue home antiepileptic regimen of Keppra 1500 mg twice daily and Vimpat. Consult in-house neurology, recommendations appreciated. -FUP EEG: Abnormal. Localized spike and wave activity was noted in both temporal areas consistent with seizures. # Suicidal ideation # Schizoaffective disorder # PTSD - Patient reports she had a suicide attempt approximately 1 week ago in [place] where she took Tylenol, gabapentin, and Eliquis - Plan: Patient is currently on a psychiatric hold. During my evaluation patient is still endorsing suicidal ideation but denies a plan. Recommend patient remains on a hold. Bedside sitter and suicide precautions. Continue home Abilify. Patient will likely need transfer to psychiatric facility once medically cleared. We will give Versed if seizure-like activity returns. # History of chronic alcohol abuse and dependence Patient drinks 10+ beers a day. She denies being hospitalized for alcohol withdrawal in the past. - Plan: Counseled on alcohol cessation. Symptoms relatively mild to moderate at this time although patient did receive Versed prior to my evaluation. Start CIWA protocol. -Thiamine 100mg PO BID # History of pulmonary embolism - Per patient she has had approximately 10 blood clots in the past. She reports she has even had a blood clot on Eliquis. - Plan: Patient follows up with a engine manager in [place]. Unclear if she has received a hypercoagulable panel in the past. Nonetheless we will resume home Eliquis and patient should follow-up with her engine manager as it is abnormal to have a recurrent thrombosis on a new oral anticoagulant. # Hypothyroidism - Plan: continue home levothyroxine 25mcg PO DVT prophylaxis: SCDs GI Proph: None indicated Diet: Regular Lines: PIV Code Status: Full code Dispo: Patient is actively endorsing suicidal ideations and remains on a psychiatric hold and will likely need transfer once medically cleared. Plan of care discussed with Attending Dr. Analia Braga MD PGY 2 Disclaimer: This note was dictated by speech recognition. Minor errors in science center display builder may be present due to voice recognition software. Attending Provider Attestation/Addendum I have discussed and was present for the essential components of the history, physical examination, diagnosis, and treatment plan with the resident. I agree with the patient's care as documented by the resident and amended herein by me. Puneet Helms, DO. Although this document has been carefully reviewed, there may still be some phonetic and other typographical errors. These errors are purely grammatical due to imperfections in the software program and should not be construed in any way to compromise the substance of the patient's medical care during this visit.
[2025-07-06] MEDS: IBUPROFEN TAB 400 MG TABLET PO (16:29)
--- NOTE | 2025-07-06 17:05 | PC.CM ---
[facility] contacted the patient's mother, Carmela Mcdowell. Reason for the call was explained. Mother was made aware of the psychiatric hold the patient is currently under and the [place] process. Further information was obtained from the mother on the patient's history. Mother reports that the patient has left out of state in the past, ending up in [place], [place], and [place]. Mother reports that she assists the patient in returning her back home by buying her a flight ticket back. Mother reports that on this occasion, the patient was brought to [place] by her boyfriend, Da. 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 Patient has also been diagnosed with other mental health diagnoses; borderline personality disorder, schizoaffective disorder and Bipolar 1. The patient has been prescribed medication; mother is to fax a medication list. Mother reports that the patient receives SSI and SSD; at this time the patient is only receiving SSD in the amount of $385. Mother reports that she has asked her state attorney, Stevie Mills to contact [facility] and also his assistant manager quality management, Marlyn. Mother was given the direct number to [facility]. At this time, mother did not have any other questions.
--- NOTE | 2025-07-06 17:12 | PC.NURSE ---
souvenir assembler called pt stated to iveth that she was feeling a seizure come on, Iveth called me as I have taken over care fo this pt at 1600, pt responding but stating that she could not feel her right side and was barely having any movement. Stroke alert called
--- NOTE | 2025-07-06 17:13 | PC.NURSE ---
bp 130/79, blood glucose 95, spo2 98 RA
--- NOTE | 2025-07-06 17:14 | XR_ITS ---
Examination: CT brain head without contrast. 2-D sagittal coronal reconstructions Date and time of exam: July 06, 2017 27 hours COMPARISON: CT stroke alert July 02, 2025 INDICATIONS: Stroke alert, onset of focal neurologic deficit today generalized weakness beginning 6 hours ago CTDI: vol (mGy): 51.3 DLP: (mGycm): 971 Technique: Multiple CT axial sections of the brain have been obtained, 5 mm slice thickness. Contrast has not been administered. 2-D sagittal, coronal reconstructions have been obtained Low dose protocols were performed. One or more of the following dose reduction techniques were used; automated exposure control, adjustment of the mA and/or KV according to patient size, use of iterative reconstruction technique. Findings: No significant ventricular enlargement. Intra-axial or extra-axial hemorrhage density is not seen. No mass effect or midline shift Basal cisterns are not remarkable. Fourth ventricle is midline. Cranial vault intact. Impression: No interval acute hemorrhage, mass effect or midline shift
--- NOTE | 2025-07-06 17:14 | EKG_ITS ---
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
--- NOTE | 2025-07-06 17:40 | ESPR_ITS ---
Tele Neuro Progress Note Progress Note Date 07/06/25 Most Recent Vital Signs Last Vital Signs Temp 97.0 F 07/06/25 12:00 Pulse 70 07/06/25 12:00 Resp 15 07/06/25 12:00 BP 114/65 07/06/25 12:00 Pulse Ox 100 07/06/25 12:00 O2 Del Method Room Air 07/06/25 12:00 O2 Flow Rate 2 07/04/25 00:00 Laboratory-Coagulation Panel PT 10.6 Seconds (9.0-12.2) 07/02/25 21:35 INR 1.0 (0.9-1.3) 07/02/25 21:35 Progress Note Narrative [facility] Patient Name: FRITZ MINER Date of : 2000 Date of Service: 07/06/2025 17:17:11 Diagnosis: ? R51.9 - Headache, unspecified Impression: ? 25-year-old female history of PNES, PTSD, suicide attempts, right lower extremity DVT previously on Eliquis now refusing all medications who I am seeing as a stroke alert for right sided shaking and numbness. Patient being seen for trembling of her right side of her body and right-sided numbness. Neuroexam showing effort dependent strength testing with upper extremities, she is able to hold up the right upper extremity but bobs up and down. She is able to lift bilateral lower extremities antigravity. CT head negative for acute process. At this time, I have lower suspicion for acute stroke at this time with effort dependent motor testing, no language difficulty despite right sided weakness and normal blood pressure.. She has had several of these events in the past with unrevealing workup including EEGs and MRI brain. Last MRI was done 2 days ago which showed no acute abnormality.. She does have headache currently and does have a history of migraines, migrainous aura on differential and can be treated with migraine abortives to see if this will improve symptoms. Will hold on giving thrombolytic at this time as I have lower suspicion for acute stroke. Our recommendations are outlined below. Recommendations: ? Neuro Checks (Q4) ? - Migraine abortives: reglan, toradol, IV magnesium 2 gms Sign Out: ? Discussed with Primary Attending Advanced Imaging: Advanced Imaging Deferred because: Stroke not suspected with clinical presentation and exam Metrics: Last Known Well: 07/06/2025 17:24:53 Dispatch Time: 07/06/2025 17:17:10 Initial Response Time: 07/06/2025 17:21:48 Symptoms: R arm numb, shaking activity . Initial patient interaction: 07/06/2025 17:24:52 NIHSS Assessment Completed: 07/06/2025 17:33:27 Patient is not a candidate for Thrombolytic. Thrombolytic Medical Decision: 07/06/2025 17:33:27 Patient was not deemed candidate for Thrombolytic because of following reasons: Stroke severity too mild (non-disabling) . CT Head: I personally reviewed all the CT images that were available to me and it showed: no acute process Primary Provider Notified of Diagnostic Impression and Management Plan on: 07/06/2025 17:36:15 Spoke With: Dr Braga Able to Reach Attempted to reach the consulting physician but was unsuccessful History of Present Illness: Patient is a 25 year old Female. Inpatient stroke alert was called for symptoms of R arm numb, shaking activity . 25-year-old female history of PNES, PTSD, suicide attempts, right lower extremity DVT previously on Eliquis now refusing all medications who I am seeing as a stroke alert for right sided shaking and numbness. Patient currently admitted for shaking events that were concerning for seizure. She had EEGs in the hospital that did not show epileptic activity. She was previously on Keppra but has not taken it for the last couple of days because she is refusing all of her medications. She was on Eliquis for right lower extremity DVT as well but is refusing that currently. Currently she states that the right side feels numb. She denies any speech changes but is having a headache and has had 1 for the last couple of days. She does state having a history of migraines. During her admission, she had brain MRI with MRA that was negative for acute stroke and this was done for right sided weakness and seizure-like activity. There is concern for nonepileptic behavioral events with her as he she has had several of these events in the past with unrevealing neurological workup.. Past Medical History: Other PMH: PTSD PNES Medications: No Anticoagulant use No Antiplatelet use Reviewed EMR for current medications Other Medications Pertinent To Assessment Include: previously on eliquis Allergies: Reviewed Social History: Drug Use: No Family History: There is no family history of premature cerebrovascular disease pertinent to this consultation ROS : 14 Points Review of Systems was performed and was negative except mentioned in HPI. Past Surgical History: There Is No Surgical History Contributory To Today?s Visit Examination: BP(114/65), Pulse(70), 1A: Level of Consciousness - Alert; keenly responsive + 0 1B: Ask Month and Age - Both Questions Right + 0 1C: Blink Eyes & Squeeze Hands - Performs Both Tasks + 0 2: Test Horizontal Extraocular Movements - Normal + 0 3: Test Visual Avendano - No Visual Loss + 0 4: Test Facial Palsy (Use Grimace if Obtunded) - Normal symmetry + 0 5A: Test Left Arm Motor Drift - No Drift for 10 Seconds + 0 5B: Test Right Arm Motor Drift - No Drift for 10 Seconds + 0 6A: Test Left Leg Motor Drift - No Drift for 5 Seconds + 0 6B: Test Right Leg Motor Drift - No Drift for 5 Seconds + 0 7: Test Limb Ataxia (FNF/Heel-Hurtado) - No Ataxia + 0 8: Test Sensation - Mild-Moderate Loss: Less Sharp/More Dull + 1 9: Test Language/Aphasia - Normal; No aphasia + 0 10: Test Dysarthria - Normal + 0 11: Test Extinction/Inattention - No abnormality + 0 NIHSS Score: 1 Pre-Morbid Modified [place] Scale: Unable to assess Spoke with : Dr Braga This consult was conducted in real time using interactive audio and video technology. Patient was informed of the technology being used for this visit and agreed to proceed. Patient located in hospital and provider located at home/office setting. Patient is being evaluated for possible acute neurologic impairment and high probability of imminent or life-threatening deterioration. I spent total of 35 minutes providing care to this patient, including time for face to face visit via telemedicine, review of medical records, imaging studies and discussion of findings with providers, the patient and/or family. Dr Hardeep Jimenez [facility] For Inpatient follow-up with [facility] physician please call [facility] at . As we are not an outpatient service for any post hospital discharge needs please contact the hospital for assistance. If you have any questions for the [facility] physicians or need to kasey nsult for clinical or diagnostic changes please contact us via [facility] at . Non-radiologist review of imaging performed to assist with emergent clinical decision-making. Remote physician workstations do not possess the same resolution, calibration, or diagnostic capabilities as hospital-based radiology reading stations, and formal radiologist read is necessary. Signature : Hardeep Jimenez
--- NOTE | 2025-07-06 17:46 | PD.RESEVENT ---
Documentation for date of: 07/06/25 Event Note Event Note: For a third time during this hospitalization stroke alert was called. Patient's endorsed right-sided weakness and numbness. She underwent stat CT brain which was negative for any acute infarct or hemorrhage. Teleneurologist also assessed patient and said most likely explanation is migraines. Toradol 30 mg IV x 1 was given. Also placed midazolam 2 mg IV x 1 as needed for seizure activity greater than 5 minutes. Plan of care discussed with Attending Dr. Analia Braga MD PGY 2 Disclaimer: This note was dictated by speech recognition. Minor errors in aoc plans intelligence officer chief may be present due to voice recognition software.
[2025-07-06] MEDS: KETOROLAC INJ 30 MG/ML VIAL IVP (17:56)
[2025-07-06 18:25] LABS: Basophils # (Auto) 0.1 Thou/mm3 (0.0-0.2); Basophils % (Auto) 1 % (0-2.5); Eosinophils # (Auto) 0.4 Thou/mm3 (0.0-0.5); Eosinophils % (Auto) 4 % (0-10); Hematocrit 32.9 % (36.0-46.0); Hemoglobin 9.8 g/dL (12.0-16.0); Immature Granulocytes Auto 0.03 Thou/mm3 (0.00-0.00); Lymphocytes # (Auto) 3.4 Thou/mm3 (1.0-4.8); Lymphocytes % (Auto) 33 % (10-50); Mean Corpuscular HGB Conc 29.8 g/dl (31.0-37.0); Mean Corpuscular Hemoglobin 22.6 pg (25.0-35.0); Mean Corpuscular Volume 76 fL (80-100); Monocytes # (Auto) 0.9 Thou/mm3 (0.0-0.8); Monocytes % (Auto) 8 % (0-12); Neutrophils # (Auto) 5.6 Thou/mm3 (1.8-7.7); Neutrophils % (Auto) 54 % (37-80); Nucleated Red Blood Cell # 0.00 Thou/mm3 (0.00-0.00); Nucleated Red Blood Cell % 0 /100 WBC (0); Platelet Count 367 Thou/mm3 (140-440); RDW Standard Deviation 50.7 fL (36.4-46.3); Red Blood Count 4.33 Miln/mm3 (4.00-5.20); White Blood Count 10.3 Thou/mm3 (3.6-11.0)
[2025-07-06 18:42] LABS: INR 1.0 (0.9-1.3); Partial Thromboplastin Time 24.2 Seconds (22.0-36.0); Prothrombin Time 10.9 Seconds (9.0-12.2)
[2025-07-06 19:21] LABS: Alanine Aminotransferase 13 U/L (10-49); Albumin, Serum 4.5 gm/dL (3.5-5.0); Albumin/Globulin Ratio 2.4 (1.2-2.2); Alkaline Phosphatase 90 U/L (46-116); Anion Gap 10 (7-16); Aspartate Amino Transferase 14 U/L (0-34); BUN/Creatinine Ratio 9 Ratio (12-20); Bilirubin,Total < 0.2 mg/dL (0.3-1.2); Blood Urea Nitrogen 7 mg/dL (9-23); Calcium 9.4 mg/dL (8.3-10.6); Calcium (Corrected) 9.4 mg/dL (8.5-10.1); Carbon Dioxide 23.3 mMol/L (20.0-31.0); Chloride 109 mMol/L (98-107); Creatine Kinase 58 U/L (34-171); Creatinine (Component) 0.8 mg/dL (0.6-1.3); Estimated Creatinine Clearance 118.7 mL/min (>60); Globulin 1.9 gm/dL (2.3-3.5); Glucose 88 mg/dL (74-106); LDH (Lactate Dehydrogenase) 155 U/L (120-246); Magnesium 1.8 mg/dL (1.6-2.6); Osmolality,Calculated 280 (275-295); Potassium 3.7 mMol/L (3.4-5.1); Procalcitonin 0.08 ng/ml (0.0-0.49); Sodium 142 mMol/L (136-145); Total Protein 6.4 gm/dL (5.7-8.2); Troponin I < 0.002 ng/mL (0.0-0.045); eGFR > 60 See Note
[2025-07-06] MEDS: ATORVASTATIN CALCIUM 20 MG TABLET 80 MG PO (21:22)
[2025-07-07] VITALS: BP 100/54; PULSE 76; PULSE 78; RESP 21; TEMP 36; O2SAT 95
[2025-07-07 04:00] VITALS: BP 117/60; PULSE 74; PULSE 80; RESP 15; TEMP 35.9; O2SAT 99
[2025-07-07 05:08] VITALS: BMI 47.6
--- NOTE | 2025-07-07 07:20 | PD.RESPRO ---
Documentation for date of: 07/07/25 Exam Vital Signs Temp Pulse Resp BP Pulse Ox O2 Del Method O2 Flow Rate 96.6 F L 80 15 117/60 99 Room Air 2 07/07/25 04:00 07/07/25 04:00 07/07/25 04:00 07/07/25 04:00 07/07/25 04:00 07/07/25 04:00 07/04/25 00:00 Objective Labs 07/06/25 18:15 07/06/25 18:15 Labs: Laboratory Results - last 24 hr 07/06/25 18:15 WBC 10.3 RBC 4.33 Hgb 9.8 L Hct 32.9 L MCV 76 L MCH 22.6 L MCHC 29.8 L RDW Std Deviation 50.7 H Plt Count 367 D Neut % (Auto) 54 Lymph % (Auto) 33 Potter % (Auto) 8 Eos % (Auto) 4 Baso % (Auto) 1 Neut # (Auto) 5.6 Lymph # (Auto) 3.4 Potter # (Auto) 0.9 H Eos # (Auto) 0.4 Baso # (Auto) 0.1 Immature Gran # (Auto) 0.03 H Absolute Nucleated RBC 0.00 Immature Gran % 0 Nucleated RBC % 0 PT 10.9 INR 1.0 APTT 24.2 Sodium 142 Potassium 3.7 Chloride 109 H Carbon Dioxide 23.3 Anion Gap 10 BUN 7 L Creatinine 0.8 Estim Creat Clear Calc 118.7 eGFR > 60 BUN/Creatinine Ratio 9 L Glucose 88 Calculated Osmolality 280 Calcium 9.4 Corrected Calcium 9.4 Magnesium 1.8 Total Bilirubin < 0.2 L AST 14 ALT 13 Alkaline Phosphatase 90 Lactate Dehydrogenase 155 Total Creatine Kinase 58 D Troponin I < 0.002 Total Protein 6.4 Albumin 4.5 Globulin 1.9 L Albumin/Globulin Ratio 2.4 H Procalcitonin 0.08 ABG Interpretation ABG results: 07/03/25 10:25 ABG pH 7.42 ABG pCO2 40 ABG pO2 97 ABG HCO3 26 ABG O2 Saturation 98 ABG Base Excess 2 Quality Measures Quality Measures none Assessment & Plan Assessment Current Active Medications: Generic Name Dose Route Start Last Admin Trade Name Freq PRN Reason Stop Dose Admin Acetaminophen 650 mg 07/05/25 07:41 07/05/25 14:51 Acetaminophen 325 Mg Tablet PO 08/01/25 09:33 650 mg Q6H PRN Administration Fever >100.4 or pain 1-3 Apixaban 5 mg 07/01/25 09:00 07/02/25 21:24 Apixaban 2.5 Mg Tablet PO 07/22/25 08:59 Not Given On Hold: 07/03/25 00:52 BID COLLIN Resume: 07/07/25 09:00 Aripiprazole 10 mg 07/04/25 09:00 07/06/25 08:13 Aripiprazole 5 Mg Tablet PO 08/03/25 08:59 Not Given DAILY COLLIN Atorvastatin Calcium 80 mg 07/02/25 21:00 07/06/25 21:22 Atorvastatin Calcium 20 Mg Tablet PO 08/01/25 20:59 80 mg HS COLLIN Administration Folic Acid 1 mg 07/02/25 21:00 07/06/25 21:22 Folic Acid 1 Mg Tablet PO 07/07/25 20:59 1 mg BID COLLIN Administration Sodium Chloride 1,000 mls @ 75 mls/hr 07/03/25 01:34 07/06/25 09:56 Ns IV 08/02/25 01:33 75 mls/hr .[id number] COLLIN Administration Lacosamide 100 mg 07/01/25 09:00 07/06/25 21:22 Lacosamide 50 Mg Tablet PO 07/31/25 08:59 100 mg BID COLLIN Administration Levetiracetam 1,500 mg 07/02/25 21:00 07/06/25 21:22 Levetiracetam Inj 100 Mg/Ml Vial 5ml IVP 08/01/25 20:59 1,500 mg Q12HR COLLIN Administration Levothyroxine Sodium 25 mcg 07/04/25 06:00 07/07/25 05:15 Levothyroxine Sodium 25 Mcg Tablet PO 08/03/25 05:59 Not Given ACBR COLLIN Lorazepam 1 mg 07/02/25 09:37 07/06/25 21:22 Lorazepam 0.5 Mg Tablet PO 07/11/25 09:36 1 mg Q4HR PRN Administration CIWA SCORE 7-11 Lorazepam 0.5 mg 07/02/25 09:37 07/06/25 08:13 Lorazepam 0.5 Mg Tablet PO 07/11/25 09:36 0.5 mg Q4HR PRN Administration CIWA Score 2-6 Lorazepam 2 mg 07/02/25 09:37 Lorazepam 0.5 Mg Tablet PO 07/11/25 09:36 Q4HR PRN CIWA SCORE 12-15 Midazolam HCl 2 mg 07/06/25 17:40 Midazolam Inj 1 Mg/Ml Vial 2 Ml IVP 07/11/25 17:39 X1 PRN Seizure > 5 minutes Ondansetron HCl 4 mg 07/02/25 09:34 07/02/25 10:07 Ondansetron Inj 2 Mg/Ml Inj 2 Ml IVP 08/01/25 09:33 4 mg Q6H PRN Administration NAUSEA OR VOMITING Protocol Polyethylene Glycol 17 gm 07/05/25 20:00 07/06/25 08:14 Polyethylene Glycol 17 Gm Packet PO 08/04/25 19:59 Not Given QDAY COLLIN Thiamine HCl 100 mg 07/02/25 21:00 07/06/25 21:28 Thiamine 100 Mg Tablet PO 07/07/25 20:59 100 mg BID COLLIN Administration
[2025-07-07 08:00] VITALS: BP 103/54; PULSE 77; PULSE 80; RESP 19; TEMP 36.3; O2SAT 99
[2025-07-07] MEDS: FOLIC ACID 1 MG TABLET PO (08:26)
[2025-07-07] MEDS: levETIRAcetam INJ 100 MG/ML VIAL 5ML 1500 MG IVP (08:26)
[2025-07-07] MEDS: LACOSAMIDE 50 MG TABLET 100 MG PO (08:26)
[2025-07-07] MEDS: THIAMINE 100 MG TABLET PO (08:26)
[2025-07-07] MEDS: APIXABAN 2.5 MG TABLET 5 MG PO (09:50)
--- NOTE | 2025-07-07 10:22 | PC.SS ---
BUSINESS PROCESS ENGINEER informed by bedside nurse that patient wanted to meet with BUSINESS PROCESS ENGINEER. BUSINESS PROCESS ENGINEER met with patient at bedside. Patient requesting update on placement search. Patient informed that placement search remains pending. Patient inquired if she could be discharge to friend's ([place]andae[facility]) apartment. BUSINESS PROCESS ENGINEER informed patient that re-evaluation will be conducted today. Patient stated I don't want to kill myself . BUSINESS PROCESS ENGINEER informed patient that occupational therapist assistant will meet with the patient and patient can relay absence of intent to harm self during assessment. Patient relayed that if she is cleared following the mental health evaluation she will have no where to transition to. Per patient I don't want to go to the streets or to a long-term . 1:1 sitter reported no behavioral concerns. Patient was engaged and responsive during discussion. Bedside nurse present throughout discussion.
[2025-07-07 12:00] VITALS: BP 112/66; PULSE 86; PULSE 90; RESP 20; TEMP 36.8; O2SAT 98
--- NOTE | 2025-07-07 12:13 | PC.SS ---
Addendum entered by Monica York 07/07/25 12:21: SS follow up note; SS contacted Merced the financial counselor Merced and informed her if she could get patient established with [facility]. Merced informed SS she would meet with patient. Original Note: SS follow up note; SS attempted to contact Quan's house, however did not answer. SS left Voicemail with SS contact Number.
--- NOTE | 2025-07-07 12:41 | PC.CC ---
0845-ASW and PORTFOLIO DIRECTOR Hearings Reporter Radha Reza called all [facility] facilites this AM asking for placement. Please see the following updates: Negro Ying-stated the barrier is the conservatorship even after ASW explained that it is a Probate Conservatorship and explained that [facility] was contacted and confirmed this as well. Negro Cottota stated they will talk to their residential mortgage manager, but as of this writing, there has been no return call from Negro Ying. [facility]-no beds available [facility]- refaxed and on [facility]-No beds [facility] beds [facility]-refaxed [facility] beds [facility] beds [facility] and Magui Shafer-In [facility] beds [place]-will consider but waiting for the re-eval outcome.
[2025-07-07] MEDS: ACETAMINOPHEN 325 MG TABLET 650 MG PO (13:31)
--- NOTE | 2025-07-07 14:40 | PC.NURSE ---
pt left MD melissa CERDA aware, social science analyst aware and notified PD CN aware. Residents and ateending came to bedside with social science analyst and charge nurse to asses and talk to pt, iv taken out and vape returned to pt
--- NOTE | 2025-07-07 14:53 | PC.SS ---
Patient departed AMA while in possession of 5150 hold. SOCIAL MEDIA SENIOR ASSOCIATE notified Paula PD spoke to staff Nona. SOCIAL MEDIA SENIOR ASSOCIATE provided description of clothing and patient's demographic information. SOCIAL MEDIA SENIOR ASSOCIATE left contact number for [place] if follow up requried.
--- NOTE | 2025-07-07 15:19 | PC.SS ---
ELEMENTARY SCHOOL MUSIC TEACHER fielded phone call from Paula FERNANDEZ, officer Lisa; notifying ELEMENTARY SCHOOL MUSIC TEACHER that patient has been located and will be returned to the emergency room. ELEMENTARY SCHOOL MUSIC TEACHER updated ED coordinator.
--- NOTE | 2025-07-07 16:23 | PC.CC ---
Pt was BIB PPD after she left the hospital AMA at 1440. Since pt left AMA and was on a 5150 (2nd hold) for DTS, pt will need to be re-evaluated again and worked up again. Her 2nd Hold is dissolved as she left AMA. At this time, pt is not a a hold and will need to be reassessed in the AM by ASW.
--- NOTE | 2025-07-07 17:23 | PD.RESEVENT ---
Documentation for date of: 07/07/25 Event Note Event Note: The patient has decided to sign out against medical advice (AMA) after being explained the risks & benefits of leaving before medical clearance/discharge. The patient had the opportunity to ask questions about their condition which were answered to their satisfaction; the patient is aware that they may return for further care at any time as needed. Alert and Orientated X 3 and capacity. Patient was alert and oriented x4 with ability to demonstrate understanding of the above and signed the AMA form. Patient has expressed suicidal ideation, placed on a second hold, thus upon signing AMA form, local law enforcement needed to be contacted. Case discussed with attending Dr. Helms and co-resident, Dr. Romeo Liu MD PGY-1 Internal Medicine - The patient's plan was discussed with attending Dr. Analia Walters MD PGY2 Internal Medicine
--- NOTE | 2025-07-07 21:08 | PD.RESDS ---
Planned Discharge Date 07/07/25 DS: Providers Provider Date of admission: 07/02/25 09:34 Primary care physician: SAM LIM Admitting Provider: Cesar Burleson MD Attending Provider on Admission: Osbaldo Helms DO Consults: 07/02/25 09:37 Consult to Neurology / Tele-Neurology Routine Comment: Consulting Provider: Pavan Hughes 07/02/25 15:12 [facility] Referral - Safety Routine Comment: Positive screening for safety needs. 07/02/25 20:43 Consult to Neurology / Tele-Neurology Stat Comment: Consulting Provider: [facility] 07/02/25 22:54 Referral Physical Therapy Routine Comment: Physician Instructions: Referral Speech Therapy Routine Comment: 07/06/25 17:14 Consult to Neurology / Tele-Neurology Stat Comment: Consulting Provider: Masood Attending Provider on DC: Osbaldo Helms DO Discharging Provider: Osbaldo Helms DO DS: Diagnosis Problem List Completed Was Problem List Reviewed/Reconciled?: Yes Hospital Course Hospital Course Hospital course: Patient is a 25-year-old female who recently relocated from [facility] with a past medical history of schizoaffective disorder, PTSD, history of DVT/PEs, Hypothyroidism, seizure disorder, and previous suicide attempt presents to [facility] emergency department with chief complaint of seizures. In the ED Presenting vital signs: Afebrile, P79, BP 98/71, RR 20, O2 sat 99% on 3 L nasal cannula. Patient admitted for seizure and stroke work up. Neuro was consulted, EEG showed epileptiform waves. Multiple avionics electrical engineer were called for seizure activity, most likely due to pseudoseizures. Neurology medically cleared patient with MRI, no need to repeat EEG since it will not change medical management. Stroke ruled out. Patient was medically cleared. Multiple rapids were called for PNES and stroke rule outs, all found to be benign. Patient was placed on psych hold and left the hospital AMA, local police contacted given continued concern for suicidal ideation. Discharge Instructions: - Follow up with Psychiatry outpatient within 1 week - Follow up with your primary care physician within 1 week of discharge in [facility]. ? If you experience any new, worsening or persistent symptoms either call your primary doctor, or dial 911 or present to the emergency department. #Stroke, ruled out #Generalized upper extremity weakness, resolved #Migraine, improved #Neuropsychiatric agitation/psuedo seizures #Seizure disorder #Breakthrough seizures # Suicidal ideation # Schizoaffective disorder # PTSD # History of chronic alcohol abuse and dependence # History of pulmonary embolism # Hypothyroidism Patient's plan and care discussed with my attending, Dr. Helms, and supervising resident MD Dieudonne Wise MD Internal Medicine PGY-1 Senior Resident Attestation: I have discussed the case with supervising physician and internal grinder set up operator physician involved in the care of patient. I personally saw and examined patient and discussed the assessment and plan with the entire medical team, including attending. I agree with assessment and plan as documented above. - The patient's plan was discussed with attending Dr. Analia Walters MD PGY2 Internal Medicine Status at Discharge Functional status at discharge: independent ambulation Overall status at discharge: patient is back to baseline Time Spent with Patient Time attestation: Total time spent providing and/or coordinating discharge services: Time spent: Greater than 30 minutes Exam Vital Signs Temp Pulse Resp BP Pulse Ox O2 Del Method O2 Flow Rate 98.3 F 86 20 112/66 98 Room Air 2 07/07/25 12:00 07/07/25 12:00 07/07/25 12:00 07/07/25 12:00 07/07/25 12:00 07/07/25 12:00 07/04/25 00:00 Narrative Exam GENERAL APPEARANCE: AOx3. NAD, activity normal for age, well developed/ well nourished, no cyanosis, pallor, or diaphoresis. HEENT: Normocephalic atraumatic, no facial trauma, neck is supple. Lids/conjunctiva normal. Mucous membranes moist, nares normal, lips/teeth normal uvula midline without oral pharyngeal erythema, exudate or swelling TMs normal bilaterally. No lymphangitis/lymphedema. CARDIAC: Regular rate and rhythm, S1+S2 heard. No murmurs, rubs, or gallops noted RESPIRATORY: respiratory effort normal, speaks in full sentences, no tripod position, no accessory muscle use. Lungs clear to auscultation without rhonchi, wheezes, rales ABDOMINAL: NBS. Soft, ND/NT. No evidence of fluid wave. No pulsatile masses on exam, rebound tenderness, Coombs sign or pain over Mcburney's point. MUSCLES/EXTREMITIES: No abnormal range of motion, no swelling. DERM: Warm, pink and dry. No rashes, dermatoses, petechiae or lesions. NEUROLOGICAL: Speech is clear and appropriate. Normal level of consciousness. Gait and coordination are normal. 5/5 strength in all extremities. PSYCH: Depressed mood. Affect is superficial and inappropriately unconcerned with content. Judgement/competence is impaired Discharge Plan Plan Patient Disposition: Left Against Medical Advice Patient condition on transfer: Stable Care Plan Goals: - Follow up with Psychiatry outpatient within 1 week - Follow up with your primary care physician within 1 week of discharge in [facility]. ? If you experience any new, worsening or persistent symptoms either call your primary doctor, or dial 911 or present to the emergency department. Prescriptions/Referrals Prescriptions/Med Rec: Continued aripiprazole 10 mg tablet 10 mg PO DAILY levetiracetam 750 mg tablet 750 mg PO Q12H levothyroxine 25 mcg tablet 25 mcg PO DAILY Nurtec ODT 75 mg tablet,disintegrating 75 mg PO DAILY Patient Comments: takes 150 mg daily Eliquis 5 mg tablet 5 mg PO Q12H Patient Comments: TAKE 1 TABLET BY MOUTH TWICE DAILY Referrals: SAM LIM [Other] Patient/Caregiver Discharge Instructions Discharge Activity: activity as tolerated Print Language: Romansh Stand Alone Forms: Parascale Award Info. Quality Discharge Quality Measures VTE prophylaxis MD Attestestation MD Attestation Patient was not discharged, see event note for today, the patient did leave despite being on a hold, was picked up by police shortly thereafter and is presently back in the emergency department
[2025-07-08 06:43] LABS: Prolactin* 3.2 ng/mL
== END 2025-07-07 14:40 | disposition left against medical advice (07) | DRG 100 ==
LOC: SERX 07-02 09:36 → SERHOLD 07-02 10:12 → S2NX 07-02 14:43
PROVIDERS: Emergency Medicine; Student in an Organized Health Care Education/Training Program; Admitting Provider Student in an Organized Health Care Education/Training Program; Emergency Provider Emergency Medicine; Visit Provider Student in an Organized Health Care Education/Training Program
DX: G40.909 Epilepsy, unspecified, not intractable, without status epilepticus (principal); I26.99 Other pulmonary embolism without acute cor pulmonale; R45.851 Suicidal ideations; F10.239 Alcohol dependence with withdrawal, unspecified; F43.10 Post-traumatic stress disorder, unspecified; F25.9 Schizoaffective disorder, unspecified; F17.200 Nicotine dependence, unspecified, uncomplicated; E03.9 Hypothyroidism, unspecified; F94.1 Reactive attachment disorder of childhood; Z86.711 Personal history of pulmonary embolism; Z91.51 Personal history of suicidal behavior; Z63.4 Disappearance and death of family member; Z79.01 Long term (current) use of anticoagulants; Z86.718 Personal history of other venous thrombosis and embolism; Z78.1 Physical restraint status; Z79.899 Other long term (current) drug therapy; Z91.148 Patient's other noncompliance with medication regimen for other reason
CPT/HCPCS: 36415; 36600; 70450; 70496; 70498; 70544; 72125; 80053; 80061; 80307; 80320; 80329; 82550; 82803; 83036; 83605; 83615; 83735; 84100; 84145; 84146; 84443; 84484; 85025; 85610; 85730; 92610; 93005; 93306; 94762; 95816; 96127; 96374; 96375; 96376; 97161; A4649; J1885; J1953; J2060; J2250; J2405; J2550; J3475; J7030; Q0162; Q9967; A9270; G0480

== ENCOUNTER 2025-07-07 15:45 | Emergency (ER) | payer MEDICARE, SELFPAY ==
[2025-07-07 15:48] VITALS: BP 125/80; PULSE 118; RESP 18; TEMP 36.6; O2SAT 96
[2025-07-07 16:00] VITALS: BMI 46.8
--- NOTE | 2025-07-07 16:09 | PD.EDOVER ---
ED Overdose RME/HPI General Chief Complaint: Psychiatric Symptoms Stated Complaint: MENTAL HEALTH EVAL, TOOK UNKNOWN AMOUT OF TYLENOL Time Seen by Provider: 07/07/25 16:08 Source: patient and police Arrival date/time: 07/07/25 15:45 Limitations: no limitations RME / HPI Time: 15:15 Timing confirmed by: other (Police) RME / HPI Narrative: Dr Sims HPI: 25-year-old female who is 5150 upstairs to escape from the hospital she then went to [facility] found a Tylenol bottle 24 tablets of 500 mg each and said she swallowed them all. This was approximately 20 minutes prior to arrival which would put this at 1515 hrs. She did this because because she wanted to hurt herself No drug use. No nausea vomiting diarrhea. No other drugs. Intent: suicide attempt How Overdose Was Discovered: other (Followed by the police) Associated symptoms: depression Treatments Prior to Arrival: none Related Data Home Medications ?Medication ?Instructions ?Recorded ?Confirmed apixaban 5 mg tablet (Eliquis) 5 mg PO Q12H 06/29/25 06/29/25 aripiprazole 10 mg tablet 10 mg PO DAILY 06/29/25 06/29/25 levetiracetam 750 mg tablet 750 mg PO Q12H 06/29/25 06/29/25 levothyroxine 25 mcg tablet 25 mcg PO DAILY 06/29/25 06/29/25 rimegepant 75 mg disintegrating 75 mg PO DAILY 06/29/25 06/29/25 tablet (Nurtec ODT) Allergies Allergy/AdvReac Type Severity Reaction Status Date / Time lithium Allergy Verified 06/29/25 12:13 Review of Systems Review of Systems Systems Reviewed: All systems reviewed, normal except as documented Past Medical History Past Medical History NEUROLOGIC: Positive Seizures, Epilepsy and Head Trauma; Negative Meningitis CARDIAC: Positive Hypercholesterolemia; Negative Cardiac Disorders or Congestive Heart Failure RESPIRATORY: Positive Pulmonary Embolism; Negative Chronic Obstructive Pulmonary Disease (COPD) GASTROINTESTINAL: Positive Obesity; Negative Gastrointestinal Disorders or Hepatitis GENITOURINARY: Negative Genitourinary Disorders or Renal Disease MUSCULOSKELETAL: Positive Fractures (left wrist); Negative Musculoskeletal Disorders ENT: Positive Head Trauma ENDOCRINE: Positive Hypothyroidism; Negative Endocrine Disorders, Diabetes Mellitus Type 1 or Diabetes Mellitus Type 2 HEMATOLOGIC: Positive Anemia and Clotting Problems; Negative Blood Disorders PSYCHO/SOCIAL: Positive Psychiatric Problems, Schizophrenia, Depression, Anxiety, Self-Mutilation and Post Traumatic Stress Disorder OTHER HISTORY: Positive Hospitalization and Falls; Negative Autoimmune Disease, Anesthesia Reactions, MRSA, Human Immunodeficiency Virus (HIV), Chicken Pox, Measles, Mumps, Rubella ([place] Measles), Pertussis or Clostridium Difficile Family History FAMILY HISTORY: Positive Family Psychiatric Problems (dad schizophrenia), Family Cardiac Disorders and Family Cancer (mom thryroid, dad prostate); Negative Family Respiratory Disorders or Family Gastrointestinal Problems Surgical History SURGICAL: Negative Ear Surgery, Nephrectomy, Joint Replacement, Neurologic Surgery or Lumpectomy Social History SMOKING STATUS: Current every day smoker SECOND HAND EXPOSURE: Yes ED Exam General Limitations: Present no limitations General appearance: Present alert and in no apparent distress Head Head exam: Present atraumatic Eye Eye exam: Present normal appearance, PERRL and EOMI ENT ENT exam: Present normal exam, normal oropharynx and mucous membranes moist Neck Neck exam: Present normal inspection, full ROM and trachea midline Chest Chest inspection: Present normal inspection and symmetric chest wall rise Respiratory Respiratory exam: Present normal lung sounds bilaterally Cardiovascular Cardiovascular exam: Present regular rate, normal rhythm and normal heart sounds Abdominal Exam Abdominal exam: Present soft and normal bowel sounds Extremities Exam Extremities exam: Present normal inspection and full ROM Back Exam Back exam: Present normal inspection and full ROM Neurological Exam Neurological exam: Present alert, oriented X3 and CN II-XII intact Skin Skin exam: Present warm, dry, intact and normal color Course Quality Measures none Orders Category Date Time Status EKG (ED ONLY) *Do not use* NOW Care 07/07/25 16:12 Completed One-to-one observation NOW Care 07/07/25 16:00 Active EKG (ED Only) Stat Exams 07/07/25 16:12 Draft Acetaminophen Stat Lab 07/07/25 22:00 Completed Acetaminophen Stat Lab 07/07/25 23:09 Ordered Alcohol, Blood Medical Stat Lab 07/07/25 17:25 Completed CBC Stat Lab 07/07/25 17:25 Completed CMP [Comprehensive Metabolic Panel] Stat Lab 07/07/25 17:25 Completed Drug Screen,Urine Stat Lab 07/07/25 20:50 Completed Salicylate Stat Lab 07/07/25 17:25 Completed activated charcoaL [Actidose-Aqua] Med 07/07/25 16:13 Discontinued 50 gm PO X1 ONE Vital Signs Vital signs: Vital Signs Temperature 97.9 F 07/07/25 15:48 Pulse Rate 118 H 07/07/25 15:48 Respiratory Rate 18 07/07/25 15:48 Blood Pressure 125/80 07/07/25 15:48 Pulse Oximetry (%) 96 07/07/25 15:48 Oxygen Delivery Method Room Air 07/07/25 15:48 Overdose MDM Narrative MDM Narrative:: 25-year-old who is on the 5150 coming in with Tylenol overdose. Nausea no vomiting. Denies . Patient states she did not take any other drugs. Otherwise the patient has no abnormal LFTs except for 0.20 total bili. Otherwise the rest of her LFTs are normal. QRS is normal on her EKG. No concerning other changes. Otherwise the patient has been stable here. She did vomit once and she is getting Zofran. IV fluids are ordered. Patient data External records reviewed:: [facility] previous records Clinical information provided by:: patient, law enforcement and none (Hospital social media sr strategy manager) Social determinants that could affect healthcare access:: none (History of SI) Patient has the following chronic illnesses:: SI How is presenting disease/condition affected by chronic disease/condition?: exacerbated by Evaluation data The following diagnostics were reviewed and interpreted by me:: lab results and EKG tracing(s) Lab and/or radiology exams considered but not ordered:: None Interpretation Summary: Tylenol level at 7 hours was 50. This is nontoxic. CBC shows white count of 13, H&H is stable at hematocrit of 36. Platelets are 587 which are elevated. Otherwise CO2 is 19 may be from the 1 episode of vomiting. Otherwise BUN/creatinine are now again. Her total bili is 0.2 but the rest of her LFTs are normal. Salicylate is less than 3. Methamphetamine cocaine, marijuana and alcohol are negative. These are interpreted and read by me. EKG normal sinus. Sinus tachycardia heart rate 130. MO 67, QTc is normal. Impression normal EKG. 2318: Signed out [address] Gomez pending repeat Tylenol level, medical clearance, and final disposition versus admission versus psych evaluation. Medications / Prescriptions Medications or Prescriptions considered but not ordered:: None Medication administrations:: Medication Administration History Discontinued Medications Charcoal (Activated Charcoal 25 Gm/120 Ml Tube) 50 gm PO X1 ONE Stop: 07/07/25 16:14 Last Admin: 07/07/25 17:56 Dose: 50 gm Documented By: MERCY As above Consultations Consultation(s) initiated? (list below): Yes Consultation #1 (Physician, Specialty, Details): Physician at poison control who at this time wants a 4-hour level. This would be drawn at 7:15 PM Time: 17:00 Diagnosis Overdose Differential Diagnosis: suicide attempt by multiple drug overdose, drug overdose, acetaminophen overdose, accidental drug ingestion and other (Intentional) Most likely diagnosis given after review of the tests above:: Intentional overdose Admission Indicated Admission indicated?: not indicated Explain why admission is indicated or not indicated:: Pending final repeat Tylenol level Admission Request Was there a request for admission?: No Disposition Plan Disposition Plan: other (specify) (Signed out to Dr. Gomez pending an 8-hour Tylenol level to make sure that her Tylenol level is not going up) Discharge Plan Plan Patient condition on transfer: Stable Prescriptions/Referrals Prescriptions/Med Rec: No Action aripiprazole 10 mg tablet 10 mg PO DAILY levetiracetam 750 mg tablet 750 mg PO Q12H levothyroxine 25 mcg tablet 25 mcg PO DAILY Nurtec ODT 75 mg tablet,disintegrating 75 mg PO DAILY Patient Comments: takes 150 mg daily Eliquis 5 mg tablet 5 mg PO Q12H Patient Comments: TAKE 1 TABLET BY MOUTH TWICE DAILY Referrals: No Primary/Family,Physician [Primary Care Provider] - In 1 week Problem List Clinical Impression: Suicidal ideation, Overdose of acetaminophen Patient/Caregiver Discharge Instructions Print Language: Welsh
--- NOTE | 2025-07-07 16:12 | EKG_ITS ---
[facility] Test Date: 2025-07-07 Pat Name: FRITZ MINER Department: Room: - Gender: Female Looper Fixer: : 2000 Requested By: Merced Sahni Order Number: [id number] Reading MD: Merced Sahni Measurements Intervals [place] Rate: 130 P: 48 TX: 154 QRS: 38 QRSD: 67 T: 36 QT: 286 QTc: 422 Interpretive Statements SINUS TACHYCARDIA ABNORMAL RHYTHM ECG Compared to ECG 07/06/2025 17:54:10 No significant changes /store/S0/[id number].pdf
[2025-07-07 17:34] LABS: Basophils # (Auto) 0.1 Thou/mm3 (0.0-0.2); Basophils % (Auto) 1 % (0-2.5); Eosinophils # (Auto) 0.2 Thou/mm3 (0.0-0.5); Eosinophils % (Auto) 2 % (0-10); Hematocrit 36.9 % (36.0-46.0); Hemoglobin 11.2 g/dL (12.0-16.0); Immature Granulocytes Auto 0.05 Thou/mm3 (0.00-0.00); Lymphocytes # (Auto) 3.0 Thou/mm3 (1.0-4.8); Lymphocytes % (Auto) 22 % (10-50); Mean Corpuscular HGB Conc 30.4 g/dl (31.0-37.0); Mean Corpuscular Hemoglobin 22.8 pg (25.0-35.0); Mean Corpuscular Volume 75 fL (80-100); Monocytes # (Auto) 0.9 Thou/mm3 (0.0-0.8); Monocytes % (Auto) 7 % (0-12); Neutrophils # (Auto) 9.2 Thou/mm3 (1.8-7.7); Neutrophils % (Auto) 68 % (37-80); Nucleated Red Blood Cell # 0.00 Thou/mm3 (0.00-0.00); Nucleated Red Blood Cell % 0 /100 WBC (0); Platelet Count 587 Thou/mm3 (140-440); RDW Standard Deviation 49.6 fL (36.4-46.3); Red Blood Count 4.92 Miln/mm3 (4.00-5.20); White Blood Count 13.5 Thou/mm3 (3.6-11.0)
[2025-07-07 18:23] LABS: Alanine Aminotransferase 17 U/L (10-49); Albumin, Serum 5.1 gm/dL (3.5-5.0); Albumin/Globulin Ratio 2.6 (1.2-2.2); Alcohol, Blood Medical < 3.0 mg/dL (0-10.0); Alkaline Phosphatase 104 U/L (46-116); Anion Gap 15 (7-16); Aspartate Amino Transferase 18 U/L (0-34); BUN/Creatinine Ratio 9 Ratio (12-20); Bilirubin,Total 0.2 mg/dL (0.3-1.2); Blood Urea Nitrogen 8 mg/dL (9-23); Calcium 9.6 mg/dL (8.3-10.6); Calcium (Corrected) 9.6 mg/dL (8.5-10.1); Carbon Dioxide 19.1 mMol/L (20.0-31.0); Chloride 108 mMol/L (98-107); Creatinine (Component) 0.9 mg/dL (0.6-1.3); Estimated Creatinine Clearance 106.9 mL/min (>60); Globulin 2.0 gm/dL (2.3-3.5); Glucose 109 mg/dL (74-106); Osmolality,Calculated 282 (275-295); Potassium 3.9 mMol/L (3.4-5.1); Salicylate < 3.0 mg/dL; Sodium 142 mMol/L (136-145); Total Protein 7.1 gm/dL (5.7-8.2); eGFR > 60 See Note
--- NOTE | 2025-07-07 20:45 | PC.NURSE ---
ASSUMED CARE OF PATIENT
[2025-07-07 20:53] VITALS: BP 113/81; PULSE 98; RESP 17; TEMP 36.8; O2SAT 96
[2025-07-07 22:24] LABS: Amphetamine/Methamp Scrn,U Negative (Negative); Barbiturate Screen,Urine Negative (Negative); Benzodiazepines Screen,Urine Negative (Negative); Benzoylecgonine Screen, Ur Negative (Negative); Fentanyl Screen,Urine Negative (Negative); Opiate Screen,Urine Negative (Negative); THC Screen,Urine Negative (Negative)
[2025-07-07 22:43] LABS: Acetaminophen 50.6 mcg/mL (10.0-20.0)
--- NOTE | 2025-07-07 23:25 | PD.EDADDENDU ---
Emergency Room Addendum <Ronit Mendoza - Last Filed: 07/07/25 23:25> Addendum Narrative: 2300: Care assumed from Dr. Henning, the previous shift emergency physician. Past medical, surgical, social and family history reviewed. Vitals and home medications reviewed. Results and treatment plan discussed. I will assume the care of the patient at this time and will follow the patient. Please refer to the emergency department record for history and examination from initial visit. <Huseyin Gomez DO - Last Filed: 07/08/25 03:42> Addendum Narrative: 2300: Care assumed from Dr. Henning, the previous shift emergency physician. Past medical, surgical, social and family history reviewed. Vitals and home medications reviewed. Results and treatment plan discussed. I will assume the care of the patient at this time and will follow the patient. Please refer to the emergency department record for history and examination from initial visit. Patient's 8-hour Tylenol level was not toxic at 29. I reviewed all the other labs. Patient is medically clear for 5150 evaluation by social work instructor in the morning.
[2025-07-08] VITALS (9 sets, daily range): BP systolic 94–136; BP diastolic 61–82; PULSE 65–99; RESP 16–22; TEMP 36.8; O2SAT 93–99
[2025-07-08 01:13] LABS: Acetaminophen 29.0 mcg/mL (10.0-20.0)
[2025-07-08] MEDS: ONDANSETRON ODT 4 MG TABRAP PO (03:35)
--- NOTE | 2025-07-08 05:19 | PC.NURSE ---
[facility] CALLED ON PATIENT, PT STARTED BANGING HER HEAD ON SIDE BAR REFUSING TO STOP, DR GILBERT ORDERED 4PT RESTRAINTS
[2025-07-08] MEDS: HALOPERIDOL LACT INJ 5 MG/ML VIAL 10 MG IM (05:52)
--- NOTE | 2025-07-08 05:54 | PD.EDADDENDU ---
Emergency Room Addendum Addendum Narrative: Patient has just recently started to act out here in the emergency room. She is trying to hit her head against the railings. She requires restraints. She will receive Haldol 10 mg IM and Benadryl 50 mg IM.
--- NOTE | 2025-07-08 11:20 | EDNOTE_ITS ---
Emergency Room Addendum Addendum Narrative: 0600: Care assumed from Dr. Gomez, the previous shift emergency physician. Past medical, surgical, social and family history reviewed. Vitals and home medications reviewed. I will assume the care of the patient at this time, pending LPS facility placement. Please refer to the emergency department record for history and examination from initial visit.?The following addendum documentation note is intended to reflect any pending information, findings, or radiology results not included in the patient?s initial chart. Patient has been accepted by Dr. Bueno at [facility]. EMS p/u ETA 14:00.
--- NOTE | 2025-07-08 11:33 | PC.CC ---
Addendum entered by Emily Cesar 07/08/25 12:47: 1245-ASW arranged transportation with [facility]. P/U ETA 1400 Addendum entered by Emily Cesar 07/08/25 12:42: 1234-Deneen from [facility] accpeted pt, accepting by Dr. Bueno, [address], nurse to nurse at 1300 call to [phone], arrival time 1500. ASW will arrange transportation Addendum entered by Emily Cesar 07/08/25 12:23: 1212-ASW asked Champ LaAnup to submit the pts packet onto [employer] as ASW was locked out of [employer]. Champ Hebert submitted pts packet to all [facility] facililties. ASW called [facility] and was told they have bed availabiity but to fax the doc and not send via [employer]. ASW faxed to the mentioned facilities. Original Note: 0820- ASW Emily Cesar met with patient [id number] to complete assessment. ASW introduced self, role, and reason for assessment. ASW disclosed limits of confidentiality as well. Patient appeared alert and oriented to self, place, and situation. Patient was somewhat upset and her mood appeared depressed; her behavior appeared disinhibited with flat affect. Patient?s thought process was not linear and organized as he appeared delusions, paranoid. Pt denies AVH. Pt is a 25 yo female who reports SI with plan by Overdose. Pt stated she ingested a bottle of Tylennol on 07/07/25 and was BIB PPD for an attempted OD. Pt was assessed by ASW and she admitted to to overdosing as an attempt to end her life. Pt states she has been homeless for the past few weeks in [place]. Pt stated that on or around 06/22/25 she attempted to overdose and was placed in a psychiatric hospital in [place]. Pt states she has extensive h/o of attempts of overdose to end her life and has been using cocaine and is an alcoholic. pt reports she has been using drugs and abusing alcohol since she was a teenager. Pt reports she was living in [place] with her mother, but was kicked out due to multiple attempts of SI by OD. Pt stated she moved to [place] to be with her boyfriend, however, at this time, the boyfriend is out of town in [place] with his parents. Boyfriends name is Da and he reported to ASW that when he returns on 07/16, he will continue to care for the pt. Da stated he is aware of the pts needs and is willing to care for her. ASW staffed with [facility], VINEET Dumas and it was determined that the safest plan for the pt is to place the pt on a 5150 DTS and search for LPS placement. ASW informed ER provider and he agrees to the plan. Assigned RN and physical therapist aide are both aware.
[2025-07-08] MEDS: APIXABAN 2.5 MG TABLET 10 MG PO (14:34)
[2025-07-08] MEDS: LEVOTHYROXINE SODIUM 25 MCG TABLET PO (14:34)
--- NOTE | 2025-07-08 15:27 | PC.NURSE ---
report called to brenda mclaughlin
--- NOTE | 2025-07-09 09:10 | PD.NEUROPROG ---
Documentation for date of: 07/04/25 Exam - Neurology Vital Signs Temp Pulse Resp BP Pulse Ox O2 Del Method 98.3 F 99 17 136/82 H 98 Room Air 07/08/25 14:39 07/08/25 14:39 07/08/25 14:39 07/08/25 14:39 07/08/25 14:39 07/08/25 14:39 Objective Labs 07/07/25 17:25 07/07/25 17:25
--- NOTE | 2025-07-09 09:11 | PD.NEUROPROG ---
Documentation for date of: 07/05/25 Exam - Neurology Vital Signs Temp Pulse Resp BP Pulse Ox O2 Del Method 98.3 F 99 17 136/82 H 98 Room Air 07/08/25 14:39 07/08/25 14:39 07/08/25 14:39 07/08/25 14:39 07/08/25 14:39 07/08/25 14:39 Objective Labs 07/07/25 17:25 07/07/25 17:25
--- NOTE | 2025-07-09 09:11 | PD.NEUROPROG ---
Documentation for date of: 07/06/25 Exam - Neurology Vital Signs Temp Pulse Resp BP Pulse Ox O2 Del Method 98.3 F 99 17 136/82 H 98 Room Air 07/08/25 14:39 07/08/25 14:39 07/08/25 14:39 07/08/25 14:39 07/08/25 14:39 07/08/25 14:39 Objective Labs 07/07/25 17:25 07/07/25 17:25
== END 2025-07-08 15:00 ==
PROVIDERS: Emergency Medicine; Emergency Provider Family Medicine
DX: T39.1X2A Poisoning by 4-Aminophenol derivatives, intentional self-harm, initial encounter (principal)
CPT/HCPCS: 36415; 80053; 80307; 80320; 80329; 85025; 87811; 93005; 96127; 96372; 99285; J1200; J1630; Q0162; A9270; G0480